=== PATIENT | male | born 1960 | race Caucasian/White ===

== ENCOUNTER → 2021-06-19 11:22 | Outpatient (BNVA) | payer OTHER, SELFPAY | PROVIDERS: PCP Family Medicine; Visit Provider Urology | DX: N40.1 Benign prostatic hyperplasia with lower urinary tract symptoms (principal); N13.8 Other obstructive and reflux uropathy; C61 Malignant neoplasm of prostate | CPT/HCPCS: 99212 ==

== ENCOUNTER → 2022-01-26 12:44 | Outpatient (BNVA) | payer OTHER, SELFPAY | PROVIDERS: PCP Family Medicine; Visit Provider Urology | DX: N40.1 Benign prostatic hyperplasia with lower urinary tract symptoms (principal); N13.8 Other obstructive and reflux uropathy; C61 Malignant neoplasm of prostate; N52.9 Male erectile dysfunction, unspecified | CPT/HCPCS: 99212 ==

== ENCOUNTER 2022-10-21 11:18 | Outpatient (REF) | payer OTHER, SELFPAY ==
[2022-10-21 13:03] LABS: PSA,Total (Free>4and<10) 5.04 ng/mL (0.00-4.00)
[2022-10-25 12:49] LABS: Free Prostate Spec Ag 1.4 ng/mL; Percent Free Prostate Spec Ag 27 % (calc) (>25); Prostate Specific Ag Total 5.1 ng/mL (< OR = 4.0)
== END 2022-10-21 11:19 | disposition home or self-care (01) ==
LOC: HO.LAB 11:18
PROVIDERS: PCP Family Medicine; Visit Provider Urology
DX: N40.1 Benign prostatic hyperplasia with lower urinary tract symptoms (principal); N13.8 Other obstructive and reflux uropathy; Z12.5 Encounter for screening for malignant neoplasm of prostate
CPT/HCPCS: 36415; 84153; 84154

== ENCOUNTER → 2022-10-29 10:59 | Outpatient (BNVA) | payer OTHER, SELFPAY | PROVIDERS: PCP Family Medicine; Visit Provider Urology | DX: N32.81 Overactive bladder (principal); N52.9 Male erectile dysfunction, unspecified | CPT/HCPCS: 51798; 99212 ==

== ENCOUNTER 2023-05-17 11:28 | Outpatient (REF) | payer OTHER, SELFPAY | END 2023-05-17 11:29 | disposition home or self-care (01) | LOC: HO.LAB 11:28 | PROVIDERS: PCP Family Medicine; Visit Provider Urology | DX: Z12.5 Encounter for screening for malignant neoplasm of prostate (principal); C61 Malignant neoplasm of prostate | CPT/HCPCS: 36415; 84153 ==

== ENCOUNTER 2023-05-24 10:56 | Outpatient (AMB) | payer OTHER, SELFPAY ==
--- NOTE | 2023-05-24 10:59 | A.OFFVIS_ITS ---
Intake Intake Visit Reasons: PSA Follow Up(set) Intake Note: Patient is prsent for PSA/PVR Follow Up PSA Results: 3.19 ng/mL Urology Med: Oxybutynin, Finasteride, Sildenafil Antibiotic Allergy: Penicillin V Blood Thinner: None PVR: 104 ml Continuous Pickling Line Pickler Required: Yes Continuous Pickling Line Pickler Language: Fashion Director Name: TRACY Mancera/THAIS MATUTE Information Interpreted: non-clinical & clinical Accompanied by: Self / Same As Patient Allergies penicillin V Allergy (Intermediate, Verified 05/24/23 11:06) rash Medication List - Last Reconciled 05/24/23 by Pasquale Merrill MD bupropion HCl 150 mg PO DAILY bupropion HCl 300 mg PO DAILY cabergoline 0.25 mg PO 2XW cholecalciferol (vitamin D3) 25 mcg PO DAILY clonazepam 0.5 mg PO BID disulfiram mg PO emtricitabine-tenofovir alafen 200-25 mg (Descovy) 1 tab PO DAILY finasteride 5 mg PO DAILY 90 days fluoxetine 10 mg PO DAILY fluticasone propionate 50 mcg/actuation 2 sprays intranasal DAILY gabapentin 400 mg PO DAILY ketoconazole 2% 1 appl topical levofloxacin 500 mg PO daily 3 days olopatadine 0.1% 0 drps ophthalmic (eye) oxybutynin chloride ER 5 mg PO DAILY 30 days quetiapine (Seroquel) 300 mg PO BID sildenafil 100 mg PO ONCE PRN 30 days sildenafil (pulm.hypertension) 20 mg PO DAILY PRN 30 days tadalafil 5 mg PO DAILY 90 days zolpidem 10 mg PO BEDTIME PRN HPI HPI Comments History of Present Illness Details ?Mr Ashley is a very pleasant Lebanese speaking male. He is a patient of Dr. Meyers. He is seen seen in the office today for the following urologic conditions. ?- prostate cancer ?- delayed ejaculation. Lebanese translation provided in office by qualified medical i d sales Telemedicine Evaluation 15 min Consultation Doximity Yael Video PSA fell to 3.2 May continue with surveillance Continue with finasteride Prostate cancer: 2016 Grade Group 1 ? Prostate cancer was diagnosed?[address] - [address] Moss.? Diagnosis was reached by?needle biopsy, for elevated PSA.? The Jeison grade is?3+3 = 6 reported by patient.? TNM Classification of Malignant Tumours (TNM)?T1c.? The D'Sunny (NCCN) risk category is?Low Risk (PSA< 10, Gl < 7, T1c).? Initial therapy included?Primary treatment, 01/21 Deferred Therapy (active surveillance) ?05/24 Additional treatment, 5AR.? Recent labs included?a PSA (prostate-specific antigen) 06/23 5.2, 12/22 5.8 (not on anything), 02/21 4.4, 07/24 4.3, 01/23 4.5, 07/25 4.7 5AR, 01/24 PSA 8.4, 08/27 PSA 9.2, 01/27 3.0 on 5AR, 10/28 5.0 27% free, 05/30 3.2 5AR ? Recent imaging included?05/24 - MRI 1.2cm PIRADS 3 on left posterior lateral.? Associated conditions ? erectile dysfunction ?Yes Delayed ejaculation ? Therapeutic plan: Continue surveillance Q 6 month [facility] Surgical History Hx of cholecystectomy Social History Alcohol intake: former Patient Tobacco Use Status: Former Tobacco user Cigarettes Per Day: 40 Review of Systems Const All systems reviewed & are unremarkable except as noted in HPI and below Reports no additional complaints Resp Reports no additional complaints GI Reports no additional complaints Reports as per HPI Musc Reports no additional complaints Physical Exam Telemedicine evaluation Appropriate responses Regular breathing rate and rhythm HEENT Head: Yes normal to inspection Ears: hearing grossly normal bilaterally Eyes General: appearance normal, both eyes and all related structures Neck Neck: Yes normal visual inspection Chest Chest palpation & inspection: normal inspection of the chest Resp Effort & Inspection: normal respiratory effort and able to speak in complete sentences Office Procedures Post Void Residual Post Residual Void Post Void Residual (PVR): 104 [id number] Void Residual by ultrasound Assessment & Plan Assessment & Plan (1) BPH w urinary obs/LUTS: Code(s): N40.1 - Benign prostatic hyperplasia with lower urinary tract symptoms; N13.8 - Other obstructive and reflux uropathy (2) Prostate cancer: Code(s): C61 - Malignant neoplasm of prostate (3) Erectile dysfunction: Code(s): N52.9 - Male erectile dysfunction, unspecified Qualifiers: Erectile dysfunction type: vasculogenic Vasculogenic erectile dysfunction type: due to arterial insufficiency Qualified Code(s): N52.01 - Erectile dysfunction due to arterial insufficiency Plan 6 month PSA check Orders: Orders AMB Post Void Residual by ultrasound Today N39.8 - Other specified disorders of urinary system PSA,Total (Free>4and<10) 6 Months C61 - Malignant neoplasm of prostate Prostate Specific Antigen 05/17/23 C61 - Malignant neoplasm of prostate AMB Urinalysis Automated Today Z13.9 - Encounter for screening, unspecified Medications: Changed From finasteride 5 mg PO DAILY 30 days 30 tabs 2RF C61 - Malignant neoplasm of prostate, N40.1 - Benign prostatic hyperplasia with lower urinary tract symptoms To finasteride 5 mg PO DAILY 90 days 90 tabs 1RF C61 - Malignant neoplasm of prostate, N40.1 - Benign prostatic hyperplasia with lower urinary tract symptoms From tadalafil 5 mg PO DAILY 90 days 90 tabs 0RF sexual activity N52.9 - Male erectile dysfunction, unspecified To tadalafil 10 mg PO DAILY 90 tabs 1RF sexual activity 90 days N52.9 - Male erectile dysfunction, unspecified Patient Instructions: Imaging studies, laboratory and physical exam results were discussed and revi ewed in detail. No major barriers to patient understanding were identified. An opportunity to ask questions regarding the treatment plan was provided. All questions were answered. The patient expressed understanding and agreement with the above treatment plan. The patient is aware they should contact our office by phone for worsening of their current condition or the appearance of new urologic symptoms. Compliance is encouraged with any medications and followup testing that is ordered. It is a privilege to participate in the urologic care of your patient. If you have any questions or concerns regarding treatment for the above conditions, or other urologic issues, please do not hesitate to contact me. The office telephone contact is [phone]. This note is constructed using voice recognition software. While every effort has been made to ensure accuracy publications editor errors may have been included. Yours sincerely, Dr Pasquale Merrill MD, [facility] - Urology Providers of Expert, Compassionate Care for the Genitourinary System Telehealth Telehealth Location of provider rendering services: practice address Location of patient: address on file Patient Identification confirmed using: Name, : Yes Telehealth method: video Patient verbally consented to treatment: Yes Patient verbally consented to billing insurance company: Yes Patient informed of any privacy concerns related to visit: Yes Coding Level of Care Code Tele Est Pt Level 4 (39649) Diagnoses BPH w urinary obs/LUTS N40.1; N13.8 Prostate cancer C61 Erectile dysfunction due to arterial insufficiency N52.01 Erectile dysfunction type: vasculogenic Vasculogenic erectile dysfunction type: due to arterial insufficiency CPT Codes Post Residual Void - PVR CPT Code: 25646-Bwti Void Residual by ultrasound ([id number])
--- OUTSIDE RECORDS SUMMARY | 2023-05-24 10:59 | XMS_ITS | Continuity of Care Document ---
Author Name Unknown Organization [facility] Address [address] [place] [address]- Care Team Providers Care Lead Principal Technical Architect Name Role Phone Zhang Benitez MD Primary Care Physician [place] [facility] [place] - 01/29/23 [facility]/[place] [address]- [place] Allergies, Adverse Reactions, Alerts Substance Reaction Severity Status penicillin Active Immunizations Given and Recorded Vaccine Date Status Refusal Reason influenza virus vaccine, inactivated 07/13/22 Give n influenza virus vaccine, inactivated 04/23/21 Anival rded influenza virus vaccine, inactivated 05/17/18 Give n influenza virus vaccine, inactivated 06/30/16 Give n [id number] bivalent booster vax 07/09/22 Recorded SARS-CoV-2 (COVID-19) mRNA-1273 vaccine 1 12/24/21 Recorded SARS-CoV-2 (COVID-19) mRNA-1273 vaccine 06/16/21 R ecorded SARS-CoV-2 (COVID-19) mRNA-1273 vaccine 11/19/20 R ecorded SARS-CoV-2 (COVID-19) mRNA-1273 vaccine 10/22/20 R ecorded zoster vaccine, inactivated 05/28/21 Given zoster vaccine, inactivated 05/22/20 Recorded tetanus-diphtheria toxoids (Td) 05/28/21 Given pneumococcal 13-valent vaccine 05/28/21 Given Influenza Virus Vaccine (oldterm) 05/22/20 Recorde d Influenza Virus Vaccine (oldterm) 05/17/19 Recorde d tetanus/diphtheria/pertussis, acel(Tdap) 2 09/03/09 Given hepatitis B adult vaccine 3 09/03/09 Given hepatitis B adult vaccine 4 06/05/08 Given hepatitis B adult vaccine 5 03/13/07 Given hepatitis B adult vaccine 6 10/10/06 Given hepatitis B adult vaccine 7 09/14/06 Given 1Result Comment: SKIP [facility] CHAR[facility] MEDRANO 2Admin Note: ADACEL VIS 06/25/08 GIVEN 3Admin Note: VIS 02/22/07 GIVEN 4Admin Note: VIS 02/22/07 given 5Admin Note: Hep B # 3 VIS 02/15/01 6Admin Note: HEP B # 2 VIS 02/15/2001 7Admin Note: VIS 02/05 HEP B #1 Medications ammonium lactate 12% topical cream 1 applicator, Topically, 2 times a day, # 280 Gm, 11 Refills, Maintenance, 05/28/21 12:56:00 EDT, [facility]/pharmacy #[id number], 1 applicator Topically 2 times a day, 162.6, cm, 05/28/21 11:04:00 EDT, Height, 81.1, kg, 11/24/20 11:26:00 EDT, Dry Weight Start Date: 05/28/21 Status: Ordered buPROPion 150 mg/12 hours (SR) oral tablet, extended release 1 tablet = 150 mg, By Mouth, 2 times a day, given by psych, Radha Cueva, # 60 tablet, 0 Refills,Maintenance, 01/31/17 9:04:21 EDT, ER Tablet Start Date: 01/31/17 Status: Ordered cabergoline 0.5 mg oral tablet 0.5 tablet = 0.25 mg, By Mouth, Every Tuesday and , # 4.5 tablet, 1 Refills, Maintenance, 11/04/21 1:02:00 EDT, [facility]/pharmacy #[id number], 162.6, cm, 10/29/21 10:19:00 EDT, Height, 81.1, kg, 11/24/2110:26:00 EDT, Dry Weight Start Date: 11/04/21 Stop Date: 01/03/22 Status: Ordered celecoxib 200 mg oral capsule 1 capsule, By Mouth, 2 times a day, PRN NEEDED FOR PAIN WITH FOOD DISCONTINUE MELOXICAM, # 60 capsule, 0 Refills, Maintenance, 12/12/22 21:40:00 EDT, [id number], 162.6, cm, 11/19/22 11:04:00 EDT, Height Start Date: 12/12/22 Status: Ordered cetirizine 10 mg oral tablet 1 tablet = 10 mg, By Mouth, Daily, In place of Loratadine label in belgian, # 30 tablet, 1 Refills,Maintenance, 11/10/22 11:58:00 EDT, Tablet, [facility]/pharmacy #[id number], Partial fill upon patient request if the prescription is for a schedule II opioid lorene... Start Date: 11/10/22 Status: Ordered clonazePAM 0.5 mg oral tablet 1 tablet = 0.5 mg, By Mouth, 2 times a day, given by psych, Radha Cueva, 0 Refills, Maintenance,11/27/18 9:50:48 EDT, Tablet Start Date: 11/27/18 Status: Ordered Descovy 200 mg-25 mg oral tablet 1 tablet, By Mouth, Daily, # 30 tablet, 6 Refills, Maintenance, 09/28/22 20:35:00 EST, Tablet, [facility], 1 tablet By Mouth Daily, 162.6, cm, 09/01/22 10:49:00 EST, Height, 81.1, kg, 11/24/20 11:26:00 EDT, Dry Weight Start Date: 09/28/22 Status: Ordered disulfiram 250 mg oral tablet See Instructions, 2 tablets By Mouth Daily for the first 2 weeks then 1 tablet daily Abstain from any alcohol for at least 12 hours before using Do not drink alcohol Avoid metronidazole, # 120 tablet, 2 Refills, Maintenance, 10/28/22... Start Date: 10/28/22 Status: Ordered dolutegravir 50 mg oral tablet 1 tablet = 50 mg, By Mouth, Daily, for post-exposure prophylaxis take with emtricitabine-tenofovir,# 28 tablet, 0 Refills, Maintenance, 04/29/22 15:30:00 EDT, Tablet, [facility]/pharmacy #[id number], Partial fill upon patient request if the prescription is for... Start Date: 04/29/22 Stop Date: 05/27/22 Status: Ordered emtricitabine-tenofovir disoproxil 200 mg-300 mg oral tablet 1 tablet, By Mouth, Daily, for post-exposure prophylaxis take with dolutegravir, # 28 tablet, 0 Refills, Maintenance, 04/29/22 15:30:00 EDT, [facility]/pharmacy #[id number], Partial fill upon patient request if the prescription is for a schedule II opioid drug.,... Start Date: 04/29/22 Stop Date: 05/27/22 Status: Ordered FLUoxetine 10 mg oral capsule 10 mg, 1, capsule, By Mouth, Daily, given by psych, Radha Cueva, # 30 capsule, Refills 0, Maintenance, 11/27/18 9:51:03 EDT Start Date: 11/27/18 Status: Ordered fluticasone 50 mcg/inh nasal spray See Instructions, SPRAY 2 SPRAYS INTO EACH NOSTRIL TODOS [place], # 16 mL, 11 Refills, Maintenance, 01/12/23 17:33:00 EDT, [facility]/pharmacy #[id number], 30, SPRAY 2 SPRAYS INTO EACH NOSTRIL TODOS [place], 162.6, cm, 01/12/23 14:53:00 EDT, Height Start Date: 01/12/23 Status: Ordered gabapentin 400 mg oral capsule See Instructions, TOME KARL CAPSULA POR VIA ORAL VICTORIA VECES AL DACIA, # 90 capsule, Refills 11, Tot. Refills 11, 11/06/19 14:40:00 EDT, Instructions Replace Required Details, Route to Pharmacy Electronically, [facility]/pharmacy #[id number], 162.56, cm, 10/18/19 10:4... Start Date: 11/06/19 Status: Ordered lansoprazole 15 mg oral enteric coated capsule See Instructions, TOME 1 CAPSULA POR VIA ORAL TODOS [place] TAKE 30 MINS BEFORE BREAKFAST, # 30 capsule, 2 Refills, Maintenance, 11/23/22 7:43:00 EDT, [id number], 162.6, cm, 11/19/22 11:04:00 EDT, Height, 81.1, kg, 11/24/20 11:26:00 EDT, Dry Weight Start Date: 11/23/22 Status: Ordered loperamide 2 mg oral capsule See Instructions, (Use 2 capsule the first time then 1 capsule after each loose stool.not to exceed8 capsules, or 16 mg, in 24 hours), # 60 capsule, Refills 1, Tot. Refills 1, Maintenance, 03/19/22 16:06:00 EDT, Instructions Replace Required Details,... Start Date: 03/19/22 Status: Ordered loratadine 10 mg oral tablet See Instructions, TOME KARL TABLETA POR VIA ORAL TODOS [place] COLON CUANDO SEA NECESARIO ALLERGY SYMPTOMS, # 30 tablet, Refills 5, Maintenance, 11/13/22 16:18:00 EDT, Instructions Replace Required Details, Route to Pharmacy Electronically, [id number],... Start Date: 11/13/22 Status: Ordered metroNIDAZOLE 0.75% topical gel 1 application, Topically, 2 times a day, Apply a thin film to affected area after washing., # 45 Gm, 11 Refills, Maintenance, Rosacea, 01/12/23 17:32:00 EDT, [facility]/pharmacy #[id number], 1 application Topically 2 times a day,Instr:Apply a thin film to affected... Start Date: 01/12/23 Status: Ordered mometasone 0.1% topical cream 1 application, Topically, Daily, apply a thin film in affected area- chest, abdomen, back, # 90 Gm,1 Refills, Maintenance, 10/15/20 22:55:00 EST, Cream, [facility]/pharmacy #[id number], 1 application Topically Daily,Instr:apply a thin film in affected area- del... Start Date: 10/15/20 Status: Ordered montelukast 10 mg oral tablet 10 mg, 1, tablet, By Mouth, Daily at bedtime, # 30 tablet, Refills 11, Tot. Refills 11, Maintenance, 10/30/21 14:05:00 EDT, Route to Pharmacy Electronically, [facility]/pharmacy #[id number], Partial fill upon patient request if the prescription is for a schedule I... Start Date: 10/30/21 Status: Ordered nitroglycerin 0.4 mg sublingual tablet 1 tablet = 0.4 mg, Sublingual, Every 5 minutes, PRN Chest Pain, (not to exceed 3 doses/15 min--if pain persists, seek medical attention), # 25 tablet, 3 Refills, Maintenance, 11/09/21 16:07:00 EDT, Tablet, [facility]/pharmacy #1026, Partial fill upon patient... Start Date: 11/09/21 Status: Ordered olopatadine 0.1% ophthalmic solution 1 drops, Eyes, Both, 2 times a day, PRN eye allergies, # 5 mL, 11 Refills, Maintenance, 10/28/22 10:43:00 EDT, Ophth Solution, [facility]/pharmacy #[id number], ., 1 drops Eyes, Both 2 times a day,PRN:eye allergies, 162.6, cm, 10/28/22 9:39:00 EDT, Height, 81.1, kg... Start Date: 10/28/22 Status: Ordered QUEtiapine 300 mg oral tablet 1 tablet = 300 mg, By Mouth, Daily at bedtime, psychiatric, Radha Cueva, # 30 tablet, 0 Refills, Maintenance, 01/04/20 16:06:00 EDT, Tablet Start Date: 01/04/20 Status: Ordered right custom AFO right custom AFO, See Instructions, # 1 each, Refills 0, Tot. Refills 0, Maintenance, right foot drop, 10/28/22 10:49:00 EDT, Compound Start Date: 10/28/22 Status: Ordered Robitussin Cough + Chest Congestion DM Maximum Strength 20 mg-400 mg/20 mL oral liquid 20 mL, By Mouth, Every 4 hours, PRN Cough, label in belgian, # 180 mL, 1 Refills, Maintenance, 12/01/22 17:23:00 EDT, [facility], Partial fill upon patient request if the prescription is for a schedule II opioid drug., 20 mL By Nickie... Start Date: 12/01/22 Status: Ordered sildenafil 100 mg oral tablet 1 tablet = 100 mg, By Mouth, Daily, 1 hour before sexual activity Do not use with NTG or if has chest pain, # 24 tablet, 0 Refills, Maintenance, 09/28/22 14:30:00 EST, Tablet, [facility], 162.6, cm, 09/01/22 10:49:00 EST, He[place]... Start Date: 09/28/22 Status: Ordered simethicone 125 mg oral tablet, chewable 1 tablet = 125 mg, Chew, 4 times a day, Take before meal ; belgian, # 120 tablet, 11 Refills, Maintenance, 06/01/21 13:40:00 EDT, [facility]/pharmacy #[id number], 162.6, cm, 05/28/21 11:04:00 EDT, Height, 81.1, kg, 11/24/20 11:26:00 EDT, Dry Weight Start Date: 06/01/21 Status: Ordered tamsulosin 0.4 mg oral capsule 0.4 mg, 1, capsule, By Mouth, Daily, # 30 capsule, Refills 5, Tot. Refills 5, Maintenance, 219:31:00 EDT, Route to Pharmacy Electronically, [facility]/pharmacy #[id number], 162.6, cm, 11/24/20 11:22:00 EDT, Height, 81.1, kg, 11/24/20 11:26:00 EDT, Dry Weight Start Date: 12/05/20 Status: Ordered Vitamin D3 1000 intl units oral tablet 1 tablet = 25 mcg, By Mouth, Daily, for 30 days, # 30 tablet, 11 Refills, Physician Stop 07/07/23 16:35:00 EST, 07/12/22 16:35:00 EST, [facility]/pharmacy #[id number], 162.6, cm, 05/06/22 10:10:00 EDT, Height, 81.1, kg, 11/24/20 11:26:00 EDT, Dry Weight Start Date: 07/12/22 Stop Date: 07/07/23 Status: Ordered zolpidem 10 mg oral tablet 1 tablet = 10 mg, By Mouth, Daily at bedtime, given by psych, Lorie Castano SHOE CASER, 0 Refills, Maintenance, 06/19/15 14:48:48 Start Date: 06/19/15 Status: Ordered Problem List Condition Confirmation Course Effective Dates Status H ealth Status Informant Allergic conjunctivitis Confirmed Active Allergic rhinitis Confirmed Active Chronic diarrhea Confirmed Active Chronic folliculitis Confirmed Active Chronic neck pain Confirmed Active Depression Confirmed Active Diverticulitis 1 Confirmed 06/29/14 Active On pre-exposure prophylaxis for HIV Confirmed Active Chlamydia contact Confirmed Active Foot drop, right Confirmed Active Gastritis 2, 3, 4, 5 Confirmed Active Gastro-esophageal reflux Confirmed Active Gynecomastia 6 Confirmed 09/09/06 Active Hepatitis A immune 7 Confirmed 07/23/05 Active Hx of syphilis Confirmed Active Insomnia Confirmed Active Chronic pain of left knee Confirmed Active 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, latent Confirmed 02/05/19 Active Prostate cancer Confirmed Active Obese class I Confirmed Active Obstructive sleep apnea syndrome 9, 10 Confirmed 10/11/11 Active Pain of left hip joint Confirmed Active [facility] Care Management Program Edge Blacker Fransisco Chacon [phone] Confirmed Active 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 11 Confirmed Active Rosacea, acne Confirmed Active Chronic pain of both shoulders Confirmed Active Positive serology for syphilis Confirmed Active Tear of meniscus of left knee 12 Confirmed 12/2015 Active Tension headache Confirmed 11/15/08 Active 1diagnosed at [facility] 2correction date food esophagus impactation is 06/30/12 3EGD 06/30/14: food impactation Neg breath test for H Pylori 5By Esteban Colby MD 11/25/11 EGD Impressions: Normal mucosa in the esophagus.Erythema and congestion in the antrum compatible with gastritis (biopsy- pos H Pylori). Normal mucosa in the duodenum. 6mild right by mammogram on 09/09/06 7by serology 8by GI assessment Sleep study Obstructive sleep apnea, mild; Hypoxia 10Obstructive sleep apnea, mild, chronic. Periodic limb movements of sleep 11right leg with foot drop 12From fall on December 2015. Dx by MRI 01/27/16: Complex degenerative type tear involving the body and posterior horn of the medial meniscus. Possible 4 mm marrow signal loose body within the inferior recess of the medial gutter. Chondromalacia and degenerative changes within the medial and patellofemoral compartments. Susceptibility artifact within the infrapatellar soft tissues. Social History Social History Type Response Smoking Status Former smoker, quit more than 30 days ago entered on: 03/29/22 Sex Patient Care team information Care Team Personnel Name: Daron Allen RN Position: S RN Member Role: Primary Care Nurse Name: Zhang Benitez MD Position: [facility] Physician - Primary Care Member Role: PCP Address: Address: [address] [place] [id number]- Care Team Related Persons Name: DOMINGO ELIAS Name: BRANDY ROBERSON Address: home [address] [place] [address] Name: PT STATES, NO ONE
--- OUTSIDE RECORDS SUMMARY | 2023-05-24 10:59 | XMS_ITS | Continuity of Care Document ---
Author Name Unknown Organization [facility] Address [address] [place] [address]- Care Team Providers Care Manager Audio Name Role Phone Zhang Benitez MD Primary Care Physician Encounter [facility] Date(s): 01/14/23 - 04/09/23 [facility] [place] [address]- Attending Physician: Zhang Benitez MD Admitting Physician: Zhang Benitez MD Allergies, Adverse Reactions, Alerts Substance Reaction Severity Status penicillin Active Immunizations Given and Recorded Vaccine Date Status Refusal Reason influenza virus vaccine, inactivated 07/13/22 Give n influenza virus vaccine, inactivated 04/23/21 Anival rded influenza virus vaccine, inactivated 05/17/18 Give n influenza virus vaccine, inactivated 06/30/16 Give n [id number] bivalent booster vax 07/09/22 Recorded SARS-CoV-2 (COVID-19) [...] adult vaccine 7 09/14/06 Given 1Result Comment: [facility] 2Admin Note: ADACEL VIS 06/25/08 GIVEN 3Admin Note: VIS 02/22/07 GIVEN 4Admin Note: VIS 02/22/07 given 5Admin Note: Hep B # 3 VIS 02/15/01 6Admin Note: HEP B # 2 VIS 02/15/2001 7Admin Note: VIS 02/05 HEP B #1 Medications buPROPion 150 mg/12 hours (SR) oral tablet, extended release 2 tablet = 300 mg, By Mouth, Daily, given by Neil avendano, # 60 tablet, 0 Refills, Maintenance, 01/31/17 9:04:21 EDT, ER Tablet Start Date: 01/31/17 Status: Ordered busPIRone 10 mg oral tablet 10 mg, 1, tablet, By Mouth, 3 times a day, As needed Patient is still taking from prior psychiatrist prescription, Radha Cueva, # 90 tablet, Refills 0, Maintenance, 03/31/23 14:07:00 EDT Start Date: 03/31/23 Status: Ordered clonazePAM 0.5 mg oral tablet 1-2 tablet, By Mouth, 2 times a day, As needed Given by Neil avendano, 0 Refills, Maintenance, 11/27/18 9:50:48 EDT, Tablet Start Date: 11/27/18 Status: Ordered Descovy 200 mg-25 mg oral tablet 1 tablet, By Mouth, Daily, # 30 tablet, 6 Refills, Maintenance, 09/28/22 20:35:00 EST, Tablet, [facility], 1 tablet By Mouth Daily, 162.6, cm, 09/01/22 10:49:00 EST, Height, 81.1, kg, 11/24/20 11:26:00 EDT, Dry Weight Start Date: 09/28/22 Status: Ordered dexamethasone/neomycin/polymyxin B ophthalmic 1 mg-3.5 mg-46409 u/gm ointment 1 application, Eyes, Both, 3 times a day, for 30 days, as needed for itchiness, # 3.5 Gm, 0 Refills, Acute 04/30/23 12:53:00 EDT, 03/31/23 12:53:00 EDT, Ophth Ointment, [facility]/pharmacy #[id number], Partial fill upon patient request if the prescription is for a... Start Date: 03/31/23 Stop Date: 04/30/23 Status: Ordered diclofenac 1% topical gel = 2 Gm, Topically, 4 times a day, # 100 Gm, 5 Refills, Maintenance, 04/07/23 15:40:00 EDT, Gel, [facility]/pharmacy #[id number], ., 162.6, cm, 04/07/23 9:53:00 EDT, Height Start Date: 04/07/23 Stop Date: 06/30/23 Status: Ordered finasteride 5 mg oral tablet 1 tablet = 5 mg, By Mouth, Daily, Given by urologist, Dr. Pasquale Merrill, # 30 tablet, 0 Refills, Maintenance, 03/31/23 14:04:00 EDT, Tablet Start Date: 03/31/23 Status: Ordered FLUoxetine 10 mg oral capsule 10 mg, 1, capsule, By Mouth, Daily, given by psych, Neil Balderas, # 30 capsule, Refills 0, Maintenance, 11/27/18 9:51:03 EDT Start Date: 11/27/18 Status: Ordered fluticasone 50 mcg/inh nasal spray See Instructions, SPRAY 2 SPRAYS INTO EACH NOSTRIL TODOS ZEYAD COLON, # 16 mL, 11 Refills, Maintenance, 01/12/23 17:33:00 EDT, [facility]/pharmacy #[id number], 30, SPRAY 2 SPRAYS INTO EACH NOSTRIL TODOS [place], 162.6, cm, 01/12/23 14:53:00 EDT, Height Start Date: 01/12/23 Status: Ordered gabapentin 300 mg oral capsule 300 mg, 1, capsule, By Mouth, Daily, PRN, # 30 capsule, Refills 5, Tot. Refills 5, Maintenance, Pain , Moderate, 04/07/23 17:49:00 EDT, Route to Pharmacy Electronically, [facility]/pharmacy #[id number], 162.6, cm, 04/07/23 9:53:00 EDT, Height Start Date: 04/07/23 Status: Ordered hydrocortisone 1% topical cream 1 application, Topically, 2 times a day, EYE LIDS AVOID GETTING IN EYES LABEL IN VINCENTIAN, # 30 Gm, 0 Refills, Maintenance, 03/18/23 13:43:00 EDT, Cream, [facility]/pharmacy #[id number], Partial fill upon patient request if the prescription is for a schedule II o... Start Date: 03/18/23 Status: Ordered lansoprazole 15 mg oral enteric coated capsule See Instructions, TOME 1 CAPSULA POR VIA ORAL TODOS [place] TAKE 30 MINS BEFORE BREAKFAST, # 90 capsule, 0 Refills, Maintenance, 02/21/23 15:11:00 EDT, [id number], 162.6, cm, 01/12/23 14:53:00 EDT, Height Start Date: 02/21/23 Status: Ordered loratadine 10 mg oral tablet See Instructions, TOME KARL TABLETA POR VIA ORAL TODOS [place] CUANDO SEA NECESARIO ALLERGY SYMPTOMS, # 30 tablet, Refills 5, Maintenance, 11/13/22 16:18:00 EDT, Instructions Replace Required Details, Route to Pharmacy Electronically, [id number],... Start Date: 11/13/22 Status: Ordered metroNIDAZOLE 0.75% topical gel 1 application, Topically, 2 times a day, Apply a thin film to affected area after washing., # 45 Gm, 11 Refills, Maintenance, Rosacea, 01/12/23 17:32:00 EDT, [facility]/pharmacy #[id number], 1 application Topically 2 times a day,Instr:Apply a thin film to affected... Start Date: 01/12/23 Status: Ordered naphazoline 0.012% ophthalmic solution 1-2 drops, Eyes, Both, 4 times a day, PRN Red eyes, Getting [id number]???name: Clear eyes, # 15 mL, 0 Refills, Maintenance, 03/31/23 13:56:00 EDT, . Start Date: 03/31/23 Status: Ordered nortriptyline 10 mg oral capsule 10 mg, 1, capsule, By Mouth, Daily at bedtime, # 30 capsule, Refills 2, Tot. Refills 2, Maintenance, 04/07/23 11:01:00 EDT, Route to Pharmacy Electronically, [facility]/pharmacy #[id number], Partial fill upon patient request if the prescription is for a schedule I... Start Date: 04/07/23 Status: Ordered oxybutynin 5 mg/24 hours oral tablet, extended release 1 tablet = 5 mg, By Mouth, Daily, Given by urologist, Dr. Pasquale Merrill, # 30 tablet, 0 Refills, Maintenance, 03/31/23 14:04:00 EDT, ER Tablet Start Date: 03/31/23 Status: Ordered QUEtiapine 300 mg oral tablet 1 tablet = 300 mg, By Mouth, Daily at bedtime, Given by psychiatrist, Neil Balderas, # 30 tablet,0 Refills, Maintenance, 01/04/20 16:06:00 EDT, Tablet Start [...] Every 4 hours, PRN Cough, label in australian, # 180 mL, 1 Refills, Maintenance, 12/01/22 17:23:00 EDT, [facility], Partial fill upon patient request if the prescription is for a schedule II opioid drug., 20 mL By Nickie... Start Date: 12/01/22 Status: Ordered tadalafil 5 mg oral tablet 1 tablet = 5 mg, By Mouth, Daily, 1 hour before sexual activity Given by urologist, Dr. Pasquale Merrill, # 5 tablet, 0 Refills, Maintenance, 03/31/23 14:04:00 EDT, Tablet Start Date: 03/31/23 Status: Ordered Vitamin D3 1000 intl units oral tablet 1 tablet = 25 mcg, By Mouth, Daily, for 30 days, # 30 tablet, 11 Refills, Physician Stop 07/07/23 16:35:00 EST, 07/12/22 16:35:00 EST, [facility]/pharmacy #[id number], 162.6, cm, 05/06/22 10:10:00 EDT, Height, 81.1, kg, 11/24/20 11:26:00 EDT, Dry Weight Start Date: 07/12/22 Stop Date: 07/07/23 Status: Ordered zolpidem 10 mg oral tablet 1 tablet = 10 mg, By Mouth, Daily at bedtime, given by psych, Neil Agbonifo, 0 Refills, Maintenance, 06/19/15 14:48:48 EST Start Date: 06/19/15 Status: Ordered Problem List Condition Confirmation Course Effective Dates Status H ealth Status Informant Allergic conjunctivitis Confirmed Active Allergic rhinitis Confirmed Active BPH (benign prostatic hyperplasia) Confirmed Active Chronic folliculitis Confirmed Active Chronic neck pain Confirmed Active Depression Confirmed Active Diverticulitis 1 Confirmed 06/29/14 Active On pre-exposure prophylaxis for HIV Confirmed Active Erectile dysfunction Confirmed Active Chlamydia contact Confirmed Active Foot [...] Confirmed 02/05/19 Active Prostate cancer Confirmed Active Chronic migraine without aura, not intractable Confirmed Active Obese class I Confirmed Active Obstructive sleep apnea syndrome 9, 10 Confirmed 10/11/11 Active Overactive bladder Confirmed Active Pain of left hip joint Confirmed Active [facility] Care Management Program Director Of Strategic Initiatives Fransisco Nettless [phone] Confirmed Active 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 11 Confirmed Active Rosacea, acne Confirmed Active Chronic pain of both shoulders Confirmed Active Tear of meniscus of left knee 12 Confirmed 12/2015 Active Tension headache Confirmed 11/15/08 Active 1diagnosed at [facility] 2correction date food esophagus impactation is 06/30/12 [...] Team Personnel Name: Daron Allen RN Position: [facility] RN Member Role: Primary Care Nurse Name: Zhang Benitez MD Position: [facility] Physician - Primary Care Member Role: PCP Address: Address: [address] [place] [address]- Care Team Related Persons Name: DOMINGO ELIAS Name: BRANDY ROBERSON Address: [place] [address] Name: PT STATES, NO ONE
--- OUTSIDE RECORDS SUMMARY | 2023-05-24 10:59 | XMS_ITS | Continuity of Care Document ---
Author Name Unknown Organization [facility] Address [address] [facility], [address], [address] [place] [id number]- Care Team Providers Care Supervisor Lace Tearing Name Role Phone Emmanuel CARRILLO, Zhang Primary Care Physician Encounter [facility] [place] Date(s): 12/30/22 - 01/29/23 [facility] [address], [address], [address] [place] [id number]- Attending Physician: Admyanely, Mychal Admitting Physician: Admtr, [id number] Referring Physician: Admtr, [id number] Allergies, Adverse Reactions, Alerts Substance Reaction Severity Status penicillin Active Immunizations Given and Recorded Vaccine Date Status Refusal Reason influenza virus vaccine, inactivated 07/13/22 Give n influenza virus vaccine, inactivated 04/23/21 Anival rded influenza virus vaccine, inactivated 05/17/18 Give n influenza virus vaccine, inactivated 06/30/16 Give n [id number] bivalent booster vax 07/09/22 Recorded SARS-CoV-2 (COVID-19) [...] adult vaccine 7 09/14/06 Given 1Result Comment: [facility] 2Admin Note: ADACEL VIS 06/25/08 GIVEN 3Admin Note: VIS 02/22/07 GIVEN 4Admin Note: VIS 02/22/07 given 5Admin Note: Hep B # 3 VIS 02/15/01 6Admin Note: HEP B # 2 VIS 02/15/2001 7Admin Note: VIS 02/05 HEP B #1 Medications ammonium lactate 12% topical cream 1 applicator, Topically, 2 times a day, # 280 Gm, 11 Refills, Maintenance, 05/28/21 12:56:00 EDT, [facility]/pharmacy #[id number], 1 applicator Topically 2 times a [...] tablet, 1 Refills, Maintenance, 11/04/21 1:02:00 EDT, [facility]/pharmacy #[id number], 162.6, cm, 10/29/21 10:19:00 EDT, Height, 81.1, kg, 11/24/2110:26:00 EDT, Dry Weight Start Date: 11/04/21 Stop Date: 01/03/22 Status: Ordered celecoxib 200 mg oral capsule 1 capsule, By Mouth, 2 times a day, PRN NEEDED FOR PAIN WITH FOOD DISCONTINUE MELOXICAM, # 60 capsule, 0 Refills, Maintenance, 12/12/22 21:40:00 EDT, [id number], 162.6, cm, 11/19/22 11:04:00 EDT, Height Start Date: 12/12/22 Status: Ordered cetirizine 10 mg oral tablet 1 tablet = 10 mg, By Mouth, Daily, In place of Loratadine label in pakistani, # 30 tablet, 1 Refills,Maintenance, 11/10/22 11:58:00 EDT, Tablet, [facility]/pharmacy #[id number], Partial fill upon patient request if [...] 0 Refills, Maintenance, 04/29/22 15:30:00 EDT, Tablet, [facility]/pharmacy #[id number], Partial fill upon patient request if the prescription is for... Start Date: 04/29/22 Stop Date: 05/27/22 Status: Ordered emtricitabine-tenofovir disoproxil 200 mg-300 mg oral tablet 1 tablet, By Mouth, Daily, for post-exposure prophylaxis take with dolutegravir, # 28 tablet, 0 Refills, Maintenance, 04/29/22 15:30:00 EDT, [facility]/pharmacy #[id number], Partial fill upon patient request if [...] Refills, Maintenance, 01/12/23 17:33:00 EDT, [facility]/pharmacy #[id number], 30, SPRAY 2 SPRAYS INTO EACH NOSTRIL TODOS [place], 162.6, cm, 01/12/23 14:53:00 EDT, Height Start Date: 01/12/23 Status: Ordered gabapentin 400 mg oral capsule See Instructions, TOME KARL CAPSULA POR VIA ORAL VICTORIA VECES AL DACIA, # 90 capsule, Refills 11, Tot. Refills 11, 11/06/19 14:40:00 EDT, Instructions Replace Required Details, Route to Pharmacy Electronically, [facility]/pharmacy #[id number], 162.56, cm, 10/18/19 10:4... Start Date: 11/06/19 Status: Ordered lansoprazole 15 mg oral enteric coated capsule See Instructions, TOME 1 CAPSULA POR VIA ORAL TODOS [place] TAKE 30 MINS BEFORE BREAKFAST, # 30 capsule, 2 Refills, Maintenance, 11/23/22 7:43:00 EDT, [id number], 162.6, cm, 11/19/22 11:04:00 EDT, Height, 81.1, [...] Replace Required Details, Route to Pharmacy Electronically, [id number],... Start Date: 11/13/22 Status: Ordered metroNIDAZOLE 0.75% topical gel 1 application, Topically, 2 times a day, Apply a thin film to affected area after washing., # 45 Gm, 11 Refills, Maintenance, Rosacea, 01/12/23 17:32:00 EDT, [facility]/pharmacy #[id number], 1 application Topically 2 times a day,Instr:Apply a thin film to affected... Start Date: 01/12/23 Status: Ordered mometasone 0.1% topical cream 1 application, Topically, Daily, apply a thin film in affected area- chest, abdomen, back, # 90 Gm,1 Refills, Maintenance, 10/15/20 22:55:00 EST, [facility], 1 application Topically Daily,Instr:apply a thin film in affected area- del... Start Date: 10/15/20 Status: Ordered montelukast 10 mg oral tablet 10 mg, 1, tablet, By Mouth, Daily at bedtime, # 30 tablet, Refills 11, Tot. Refills 11, Maintenance, 10/30/21 14:05:00 EDT, Route to Pharmacy Electronically, [facility]/pharmacy #[id number], Partial fill upon patient request if the prescription is for a schedule I... Start Date: 10/30/21 Status: Ordered nitroglycerin 0.4 mg sublingual tablet 1 tablet = 0.4 mg, Sublingual, Every 5 minutes, PRN Chest Pain, (not to exceed 3 doses/15 min--if pain persists, seek medical attention), # 25 tablet, 3 Refills, Maintenance, 11/09/21 16:07:00 EDT, Tablet, [facility]/pharmacy #[id number], Partial fill upon patient... Start Date: 11/09/21 Status: Ordered olopatadine 0.1% ophthalmic solution 1 drops, Eyes, Both, 2 times a day, PRN eye allergies, # 5 mL, 11 Refills, Maintenance, 10/28/22 10:43:00 EDT, Ophth Solution, [facility]/pharmacy #[id number], ., 1 drops Eyes, Both 2 [...] Every 4 hours, PRN Cough, label in pakistani, # 180 mL, 1 Refills, Maintenance, 12/01/22 17:23:00 EDT, [facility], Partial fill upon patient request if [...] times a day, Take before meal ; pakistani, # 120 tablet, 11 Refills, Maintenance, 06/01/21 13:40:00 EDT, [facility]/pharmacy #1026, 162.6, cm, 05/28/21 11:04:00 EDT, Height, 81.1, kg, 11/24/20 11:26:00 EDT, Dry Weight Start Date: 06/01/21 Status: Ordered tamsulosin 0.4 mg oral capsule 0.4 mg, 1, capsule, By Mouth, Daily, # 30 capsule, Refills 5, Tot. Refills 5, Maintenance, :31:00 EDT, Route to Pharmacy Electronically, [facility]/pharmacy #[id number], 162.6, cm, 11/24/20 11:22:00 EDT, Height, 81.1, kg, 11/24/20 11:26:00 EDT, Dry Weight Start Date: 12/05/20 Status: Ordered Vitamin D3 1000 intl units oral tablet 1 tablet = 25 mcg, By Mouth, Daily, for 30 days, # 30 tablet, 11 Refills, Physician Stop 07/07/23 16:35:00 EST, 07/12/22 16:35:00 EST, [facility]/pharmacy #[id number], 162.6, cm, 05/06/22 10:10:00 EDT, Height, 81.1, kg, 11/24/20 11:26:00 EDT, Dry Weight Start Date: 07/12/22 Stop Date: 07/07/23 Status: Ordered zolpidem 10 mg oral tablet 1 tablet = 10 mg, By Mouth, Daily at bedtime, given by psych, Lorie Castano NP, 0 Refills, Maintenance, 06/19/15 14:48:48 Start Date: [...] Pain of left hip joint Confirmed Active [facility] Care Management Program Industrial Engineering Technologist Fransisco Chacon [phone] Confirmed Active 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 11 Confirmed Active Rosacea, acne Confirmed Active Chronic pain of both shoulders Confirmed Active Positive serology for syphilis Confirmed Active Tear of meniscus of left knee 12 Confirmed 12/2015 Active Tension headache Confirmed 11/15/08 Active 1diagnosed at [facility] 2correction date food esophagus impactation is [...] Team Personnel Name: Daron Allen RN Position: [facility] RN Member Role: Primary Care Nurse Name: Zhang Benitez MD Position: [facility] Physician - Primary Care Member Role: PCP Address: Address: [address] [place] [address]- Care Team Related Persons Name: DOMINGO ELIAS Name: BRANDY ROBERSON Address: [address] [address] Name: PT STATES, NO ONE
--- OUTSIDE RECORDS SUMMARY | 2023-05-24 10:59 | XMS_ITS | Continuity of Care Document ---
Author Name Unknown Organization [facility] Address [address] [place] [address]- Care Team Providers Care Woodwind Instruments Inspector Name Role Phone Zhang Benitez MD Primary Care Physician [place] [facility] [place](s): 02/21/23 - 03/23/23 [facility]/[place] [address]- [place] Allergies, Adverse Reactions, Alerts Substance Reaction Severity Status penicillin Active Immunizations Given and Recorded Vaccine Date Status Refusal Reason influenza virus vaccine, inactivated 07/13/22 Give n influenza virus vaccine, inactivated 04/23/21 Anival rded influenza virus vaccine, inactivated 05/17/18 Give n influenza virus vaccine, inactivated 06/30/16 Give n [id number] bivalent booster vax 07/09/22 Recorded SARS-CoV-2 (COVID-19) [...] Gm, 11 Refills, Maintenance, 05/28/21 12:56:00 EDT, [facility]/pharmacy #[id number], 1 applicator Topically 2 times a [...] tablet, 1 Refills, Maintenance, 11/04/21 1:02:00 EDT, [facility]/pharmacy #[id number], 162.6, cm, 10/29/21 10:19:00 EDT, Height, 81.1, kg, 11/24/2110:26:00 EDT, Dry Weight Start Date: 11/04/21 Stop Date: 01/03/22 Status: Ordered celecoxib 200 mg oral capsule 1 capsule, By Mouth, 2 times a day, PRN NEEDED FOR PAIN WITH FOOD DISCONTINUE MELOXICAM, # 60 capsule, 0 Refills, Maintenance, 02/16/23 15:28:00 EDT, [id number], 162.6, cm, 01/12/23 14:53:00 EDT, Height Start Date: 02/16/23 Status: Ordered cetirizine 10 mg oral tablet 1 tablet = 10 mg, By Mouth, Daily, In place of Loratadine label in bahamian, # 30 tablet, 1 Refills,Maintenance, 11/10/22 11:58:00 EDT, Tablet, [facility]/pharmacy #[id number], Partial fill upon patient request if [...] 0 Refills, Maintenance, 04/29/22 15:30:00 EDT, Tablet, [facility]/pharmacy #[id number], Partial fill upon patient request if the prescription is for... Start Date: 04/29/22 Stop Date: 05/27/22 Status: Ordered emtricitabine-tenofovir disoproxil 200 mg-300 mg oral tablet 1 tablet, By Mouth, Daily, for post-exposure prophylaxis take with dolutegravir, # 28 tablet, 0 Refills, Maintenance, 04/29/22 15:30:00 EDT, [facility]/pharmacy #1026, Partial fill upon patient request if [...] mL, 11 Refills, Maintenance, 01/12/23 17:33:00 EDT, [facility]/pharmacy #1026, 30, SPRAY 2 SPRAYS INTO EACH NOSTRIL TODOS [place], 162.6, cm, 01/12/23 14:53:00 EDT, Height Start Date: 01/12/23 Status: Ordered gabapentin 400 mg oral capsule See Instructions, TOME KARL CAPSULA POR VIA ORAL VICTORIA VECES AL DACIA, # 90 capsule, Refills 11, Tot. Refills 11, 11/06/19 14:40:00 EDT, Instructions Replace Required Details, Route to Pharmacy Electronically, [facility]/pharmacy #1026, 162.56, cm, 10/18/19 10:4... Start Date: 11/06/19 Status: Ordered hydrocortisone 1% topical cream 1 application, Topically, 2 times a day, EYE LIDS AVOID GETTING IN EYES LABEL IN BULGAR[place], # 30 Gm, 0 Refills, Maintenance, 03/18/23 13:43:00 EDT, Cream, [facility], Partial fill upon patient request if the prescription is for a schedule II o... Start Date: 03/18/23 Status: Ordered lansoprazole 15 mg oral enteric coated capsule See Instructions, TOME 1 CAPSULA POR VIA ORAL TODOS [place] TAKE 30 MINS BEFORE BREAKFAST, # 90 capsule, 0 Refills, Maintenance, 02/21/23 15:11:00 EDT, [id number], 162.6, cm, 01/12/23 14:53:00 EDT, Height Start Date: 02/21/23 Status: Ordered loperamide 2 mg oral capsule [...] Replace Required Details, Route to Pharmacy Electronically, [id number],... Start Date: 11/13/22 Status: Ordered metroNIDAZOLE 0.75% topical gel 1 application, Topically, 2 times a day, Apply a thin film to affected area after washing., # 45 Gm, 11 Refills, Maintenance, Rosacea, 01/12/23 17:32:00 EDT, [facility]/pharmacy #1026, 1 application Topically 2 times a day,Instr:Apply a thin film to affected... Start Date: 01/12/23 Status: Ordered mometasone 0.1% topical cream 1 application, Topically, Daily, apply a thin film in affected area- chest, abdomen, back, # 90 Gm,1 Refills, Maintenance, 10/15/20 22:55:00 EST, Cream, [facility]/pharmacy #1026, 1 application Topically Daily,Instr:apply a thin film in affected area- del... Start Date: 10/15/20 Status: Ordered montelukast 10 mg oral tablet 10 mg, 1, tablet, By Mouth, Daily at bedtime, # 30 tablet, Refills 11, Tot. Refills 11, Maintenance, 10/30/21 14:05:00 EDT, Route to Pharmacy Electronically, [facility]/pharmacy #1026, Partial fill upon patient request if the prescription is for a schedule I... Start Date: 10/30/21 Status: Ordered nitroglycerin 0.4 mg sublingual tablet 1 tablet = 0.4 mg, Sublingual, Every 5 minutes, PRN Chest Pain, (not to exceed 3 doses/15 min--if pain persists, seek medical attention), # 25 tablet, 3 Refills, Maintenance, 11/09/21 16:07:00 EDT, Tablet, [facility]/pharmacy #1026, Partial fill upon patient... Start Date: 11/09/21 Status: Ordered olopatadine 0.1% ophthalmic solution 1 drops, Eyes, Both, 2 times a day, PRN eye allergies, # 5 mL, 11 Refills, Maintenance, 10/28/22 10:43:00 EDT, Ophth Solution, [facility]/pharmacy #1026, ., 1 drops Eyes, Both 2 [...] Every 4 hours, PRN Cough, label in bahamian, # 180 mL, 1 Refills, Maintenance, 12/01/22 17:23:00 EDT, [facility], Partial fill upon patient request if the [...] PHARMACY #80, 162.6, cm, 09/01/22 10:49:00 EST, [place] Start Date: 09/28/22 Status: Ordered simethicone 125 mg oral tablet, chewable 1 tablet = 125 mg, Chew, 4 times a day, Take before meal ; bahamian, # 120 tablet, 11 Refills, Maintenance, 06/01/21 13:40:00 EDT, [facility]/pharmacy #1026, 162.6, cm, 05/28/21 11:04:00 EDT, Height, 81.1, kg, 11/24/20 11:26:00 EDT, Dry Weight Start Date: 06/01/21 Status: Ordered tamsulosin 0.4 mg oral capsule 0.4 mg, 1, capsule, By Mouth, Daily, # 30 capsule, Refills 5, Tot. Refills 5, Maintenance, 219:31:00 EDT, Route to Pharmacy Electronically, [facility]/pharmacy #1026, 162.6, cm, 11/24/20 11:22:00 EDT, Height, 81.1, kg, 11/24/20 11:26:00 EDT, Dry Weight Start Date: 12/05/20 Status: Ordered Vitamin D3 1000 intl units oral tablet 1 tablet = 25 mcg, By Mouth, Daily, for 30 days, # 30 tablet, 11 Refills, Physician Stop 07/07/23 16:35:00 EST, 07/12/22 16:35:00 EST, [facility]/pharmacy #1026, 162.6, cm, 05/06/22 10:10:00 EDT, Height, [...] of left hip joint Confirmed Active [facility] Care Management Program Manager User Interface Fransisco Chacon [phone] Confirmed Active 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 11 Confirmed Active Rosacea, acne Confirmed Active Chronic pain of both shoulders Confirmed Active Positive serology for syphilis Confirmed Active Tear of meniscus of left knee 12 Confirmed 12/2015 Active Tension headache Confirmed 11/15/08 Active 1diagnosed at [facility] 2correction date food esophagus impactation is [...] Team Personnel Name: Daron Allen RN Position: [facility] RN Member Role: Primary Care Nurse Name: Emmanuel CARRILLO, Zhang Position: [facility] Physician - Primary Care Member Role: PCP Address: Address: [address] [place] [id number]- Care Team Related Persons Name: DOMINGO ELIAS Name: BRANDY ROBERSON Address: [address] [place] [address] Name: PT STATES, NO ONE
--- OUTSIDE RECORDS SUMMARY | 2023-05-24 11:00 | XMS_ITS | Continuity of Care Document ---
Author Name Unknown Organization [facility] Address [address] [place] [address]- Care Team Providers Care Grinding Wheel Dresser Name Role Phone Emmanuel CARRILLO, Zhang Primary Care Physician [place] [facility] [place](s): 03/10/23 - 04/09/23 [facility] [place] [address]- [place] Allergies, Adverse Reactions, Alerts Substance Reaction Severity Status penicillin Active Immunizations Given and Recorded Vaccine Date Status Refusal Reason influenza virus vaccine, inactivated 07/13/22 Give n influenza virus vaccine, inactivated 04/23/21 Anival rded influenza virus vaccine, inactivated 05/17/18 Give n influenza virus vaccine, inactivated 06/30/16 Give n [id number] bivalent booster vax 07/09/22 Recorded SARS-CoV-2 (COVID-19) [...] vaccine 7 09/14/06 Given 1Result Comment: SKIP BEAULIEU 2Admin Note: ADACEL VIS 06/25/08 GIVEN 3Admin [...] Status: Ordered dexamethasone/neomycin/polymyxin B ophthalmic 1 mg-3.5 mg-98411 u/gm ointment 1 application, Eyes, Both, 3 times a day, for 30 days, as needed for itchiness, # 3.5 Gm, 0 Refills, Acute 04/30/23 12:53:00 EDT, 03/31/23 12:53:00 EDT, Ophth Ointment, [facility]/pharmacy #1026, Partial fill upon patient request if the prescription is for a... Start Date: 03/31/23 Stop Date: 04/30/23 Status: Ordered diclofenac 1% topical gel = 2 Gm, Topically, 4 times a day, # 100 Gm, 5 Refills, Maintenance, 04/07/23 15:40:00 EDT, Gel, [facility]/pharmacy #1026, ., 162.6, cm, 04/07/23 9:53:00 EDT, [...] mL, 11 Refills, Maintenance, 01/12/23 17:33:00 EDT, [facility]/pharmacy #1026, 30, SPRAY 2 SPRAYS INTO EACH NOSTRIL TODOS [place], 162.6, cm, 01/12/23 14:53:00 EDT, Height Start Date: 01/12/23 Status: Ordered gabapentin 300 mg oral capsule 300 mg, 1, capsule, By Mouth, Daily, PRN, # 30 capsule, Refills 5, Tot. Refills 5, Maintenance, Pain , Moderate, 04/07/23 17:49:00 EDT, Route to Pharmacy Electronically, [facility]/pharmacy #1026, 162.6, cm, 04/07/23 9:53:00 EDT, Height Start Date: 04/07/23 Status: Ordered hydrocortisone 1% topical cream 1 application, Topically, 2 times a day, EYE LIDS AVOID GETTING IN EYES LABEL IN SW[place], # 30 Gm, 0 Refills, Maintenance, 03/18/23 13:43:00 EDT, Cream, [facility]/pharmacy #1026, Partial fill upon patient request if the prescription is for a schedule II o... Start Date: 03/18/23 Status: Ordered lansoprazole 15 mg oral enteric coated capsule See Instructions, TOME 1 CAPSULA POR VIA ORAL TODOS [place] TAKE 30 MINS BEFORE BREAKFAST, # 90 capsule, 0 Refills, Maintenance, 02/21/23 15:11:00 EDT, [id number], 162.6, cm, 01/12/23 14:53:00 EDT, Height Start Date: 02/21/23 Status: Ordered loratadine 10 mg oral tablet See Instructions, TOME KARL TABLETA POR VIA ORAL TODOS [place] CUANDO SEA NECESARIO ALLERGY SYMPTOMS, # 30 tablet, Refills 5, Maintenance, 11/13/22 16:18:00 EDT, Instructions Replace Required Details, Route to Pharmacy Electronically, [id number],... Start Date: 11/13/22 Status: Ordered metroNIDAZOLE 0.75% topical gel 1 application, Topically, 2 times a day, Apply a thin film to affected area after washing., # 45 Gm, 11 Refills, Maintenance, Rosacea, 01/12/23 17:32:00 EDT, [facility]/pharmacy #1026, 1 application Topically 2 times a day,Instr:Apply a thin film to affected... Start Date: 01/12/23 Status: Ordered naphazoline 0.012% ophthalmic solution 1-2 drops, Eyes, Both, 4 times a day, PRN Red eyes, Getting [id number]???name: Clear eyes, # 15 mL, 0 Refills, Maintenance, 03/31/23 13:56:00 EDT, . Start Date: 03/31/23 Status: Ordered nortriptyline 10 mg oral capsule 10 mg, 1, capsule, By Mouth, Daily at bedtime, # 30 capsule, Refills 2, Tot. Refills 2, Maintenance, 04/07/23 11:01:00 EDT, Route to Pharmacy Electronically, [facility]/pharmacy #[id number], Partial fill upon patient request if [...] Every 4 hours, PRN Cough, label in solomon islander, # 180 mL, 1 Refills, Maintenance, 12/01/22 17:23:00 EDT, [facility], Partial fill upon patient request if [...] Stop 07/07/23 16:35:00 EST, 07/12/22 16:35:00 EST, [facility]/pharmacy #1026, 162.6, cm, 05/06/22 10:10:00 EDT, Height, 81.1, kg, 11/24/20 11:26:00 EDT, Dry Weight Start Date: 07/12/22 Stop Date: 07/07/23 Status: Ordered zolpidem 10 mg oral tablet 1 tablet = 10 mg, By Mouth, Daily at bedtime, given by juan alberto, Neil Balderas, 0 Refills, Maintenance, 06/19/15 14:48:48 EST Start [...] Pain of left hip joint Confirmed Active [facility] Care Management Program Shoe Cementer Fransisco Chacon [phone] Confirmed Active 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 11 Confirmed Active Rosacea, acne Confirmed Active Chronic pain of both shoulders Confirmed Active Tear of meniscus of left knee 12 Confirmed 12/2015 Active Tension headache Confirmed 11/15/08 Active 1diagnosed at [facility] 2correction date food esophagus impactation is [...] Team Personnel Name: Daron Allen RN Position: [facility] RN Member Role: Primary Care Nurse Name: Zhang Benitez MD Position: [facility] Physician - Primary Care Member Role: PCP Address: Address: [address] [place] [address]- Care Team Related Persons Name: DOMINGO ELIAS Name: BRANDY ROBERSON Address: [address] [address] Name: STATES, NO ONE
--- OUTSIDE RECORDS SUMMARY | 2023-05-24 11:00 | XMS_ITS | Continuity of Care Document ---
Author Name Unknown Organization [facility] Address [address] [place] [address]- Care Team Providers Care Cash Controller Name Role Phone Emmanuel CARRILLO, Zhang Primary Care Physician Encounter [facility] [place] Date(s): 10/21/22 - 11/20/22 [facility]/[place] [address]- Attending Physician: Weston Arce MD Admitting Physician: Weston Arce MD Allergies, Adverse Reactions, Alerts Substance Reaction Severity Status penicillin Active Immunizations Given and Recorded Vaccine Date Status Refusal Reason influenza virus vaccine, inactivated 07/13/22 Give n influenza virus vaccine, inactivated 04/23/21 Anival rded influenza virus vaccine, inactivated 05/17/18 Give n influenza virus vaccine, inactivated 06/30/16 Give n [id number] bivalent booster vax 07/09/22 Recorded SARS-CoV-2 (COVID-19) [...] adult vaccine 7 09/14/06 Given 1Result Comment: [facility] AVLisa 2Admin Note: ADACEL VIS 06/25/08 GIVEN 3Admin Note: VIS 02/22/07 GIVEN 4Admin Note: VIS 02/22/07 given 5Admin Note: Hep B # 3 VIS 02/15/01 6Admin Note: HEP B # 2 VIS 02/15/2001 7Admin Note: VIS 02/05 HEP B #1 Medications ammonium lactate 12% topical cream 1 applicator, Topically, 2 times a day, # 280 Gm, 11 Refills, Maintenance, 05/28/21 12:56:00 EDT, [facility]/pharmacy #1026, 1 applicator Topically 2 times a [...] tablet, 1 Refills, Maintenance, 11/04/21 1:02:00 EDT, [facility]/pharmacy #1026, 162.6, cm, 10/29/21 10:19:00 EDT, Height, 81.1, kg, 11/24/2110:26:00 EDT, Dry Weight Start Date: 11/04/21 Stop Date: 01/03/22 Status: Ordered CeleBREX 200 mg oral capsule 1 capsule = 200 mg, By Mouth, 2 times a day, PRN as needed for pain, with food Discontinue meloxicam, # 60 capsule, 2 Refills, Maintenance, 09/01/22 12:03:00 EST, [facility]/pharmacy #1026, Partial fill upon patient request if the prescription is for a sche... Start Date: 09/01/22 Stop Date: 11/30/22 Status: Ordered cetirizine 10 mg oral tablet 1 tablet = 10 mg, By Mouth, Daily, In place of Loratadine label in [place], # 30 tablet, 1 Refills,Maintenance, 11/10/22 11:58:00 EDT, Tablet, [facility]/pharmacy #1026, Partial fill upon patient request if the prescription is for a schedule II opioid lorene... Start Date: 11/10/22 Status: Ordered Cipro 500 mg oral tablet 1 tablet = 500 mg, By Mouth, Every 24 hours, for 30 days, # 30 tablet, 0 Refills, Acute 11/27/22 10:31:00 EDT, 10/28/22 10:31:00 EDT, Tablet, [facility]/pharmacy #1026, ., 162.6, cm, 10/28/22 9:39:00 EDT, Height, 81.1, kg, 11/24/20 11:26:00 EDT, Dry Weight Start Date: 10/28/22 Stop Date: 11/27/22 Status: Ordered clonazePAM 0.5 mg oral tablet [...] 0 Refills, Maintenance, 04/29/22 15:30:00 EDT, Tablet, [facility]/pharmacy #1026, Partial fill upon patient request if the prescription is for... Start Date: 04/29/22 Stop Date: 05/27/22 Status: Ordered emtricitabine-tenofovir disoproxil 200 mg-300 mg oral tablet 1 tablet, By Mouth, Daily, for post-exposure prophylaxis take with dolutegravir, # 28 tablet, 0 Refills, Maintenance, 04/29/22 15:30:00 EDT, [facility]/pharmacy #1026, Partial fill upon patient request if [...] NOSTRIL TODOS [place], # 16 mL, 5 Refills, Maintenance,07/07/22 19:25:00 EST, [id number], 30, SPRAY 2 SPRAYS INTO EACH NOSTRIL TODOS [place], 162.6,cm, 05/06/22 10:10:00 EDT, Height, 81.1, kg, 11/24/... Start Date: 07/07/22 Status: Ordered gabapentin 400 mg oral capsule See Instructions, TOME KARL CAPSULA POR VIA ORAL VICTORIA VECES AL DACIA, # 90 capsule, Refills 11, Tot. Refills 11, 11/06/19 14:40:00 EDT, Instructions Replace Required Details, Route to Pharmacy Electronically, [facility]/pharmacy #1026, 162.56, cm, 10/18/19 10:4... Start Date: 11/06/19 Status: Ordered ketoconazole 2% topical cream 1 application, Topically, Daily, for 30 days, # 60 Gm, 1 Refills, Acute 12/27/22 10:57:00 EDT, 10/28/22 10:57:00 EDT, Cream, [facility]/pharmacy #1026, Partial fill upon patient request if the prescription is for a schedule II opioid drug., 1 application Top... Start Date: 10/28/22 Stop Date: 12/27/22 Status: Ordered lansoprazole 15 mg oral enteric coated capsule 1 capsule, By Mouth, Daily, INSTR:TAKE 30 MINUTES BEFORE BREAKFAST, # 30 capsule, 2 Refills, [id number], 162.6, cm, 10/29/21 10:19:00 EDT, Height, 81.1, kg, 11/24/20 11:26:00 EDT, Dry Weight Start Date: 11/02/21 Status: Ordered loperamide 2 mg oral capsule [...] Replace Required Details, Route to Pharmacy Electronically, [facility],... Start Date: 11/13/22 Status: Ordered metroNIDAZOLE 0.75% topical gel 1 application, Topically, 2 times a day, Apply a thin film to affected area after washing., # 45 Gm, 11 Refills, Maintenance, Rosacea, 07/28/22 15:02:00 EST, [facility]/pharmacy #1026, 1 application Topically 2 times a day,Instr:Apply a thin film to affected... Start Date: 07/28/22 Status: Ordered mometasone 0.1% topical cream 1 application, Topically, Daily, apply a thin film in affected area- chest, abdomen, back, # 90 Gm,1 Refills, Maintenance, 10/15/20 22:55:00 EST, Cream, [facility]/pharmacy #1026, 1 application Topically Daily,Instr:apply a thin film in affected area- del... Start Date: 10/15/20 Status: Ordered montelukast 10 mg oral tablet 10 mg, 1, tablet, By Mouth, Daily at bedtime, # 30 tablet, Refills 11, Tot. Refills 11, Maintenance, 10/30/21 14:05:00 EDT, Route to Pharmacy Electronically, [facility]/pharmacy #1026, Partial fill upon patient request if the prescription is for a schedule I... Start Date: 10/30/21 Status: Ordered nitroglycerin 0.4 mg sublingual tablet 1 tablet = 0.4 mg, Sublingual, Every 5 minutes, PRN Chest Pain, (not to exceed 3 doses/15 min--if pain persists, seek medical attention), # 25 tablet, 3 Refills, Maintenance, 11/09/21 16:07:00 EDT, Tablet, [facility]/pharmacy #1026, Partial fill upon patient... Start Date: 11/09/21 Status: Ordered olopatadine 0.1% ophthalmic solution 1 drops, Eyes, Both, 2 times a day, PRN eye allergies, # 5 mL, 11 Refills, Maintenance, 10/28/22 10:43:00 EDT, Ophth Solution, [facility]/pharmacy #1026, ., 1 drops Eyes, Both 2 times a day,PRN:eye allergies, 162.6, cm, 10/28/22 9:39:00 EDT, Height, 81.1, kg... Start Date: 10/28/22 Status: Ordered QUEtiapine 300 mg oral tablet 1 tablet = 300 mg, By Mouth, Daily at bedtime, narendra, Radha Cueva, # 30 tablet, 0 Refills, [...] Every 4 hours, PRN Cough, label in [place], # 180 mL, 1 Refills, Maintenance, 11/10/22 11:58:00 EDT, [facility]/pharmacy #1026, Partial fill upon patient request if the prescription is for a schedule II opioid drug., 20 mL By Mouth Every 4 h... Start Date: 11/10/22 Status: Ordered sildenafil 100 mg oral tablet [...] times a day, Take before meal ; [place], # 120 tablet, 11 Refills, Maintenance, 06/01/21 13:40:00 EDT, [facility]/pharmacy #1026, 162.6, cm, 05/28/21 11:04:00 EDT, Height, 81.1, kg, 11/24/20 11:26:00 EDT, Dry Weight Start Date: 06/01/21 Status: Ordered tamsulosin 0.4 mg oral capsule 0.4 mg, 1, capsule, By Mouth, Daily, # 30 capsule, Refills 5, Tot. Refills 5, Maintenance, 219:31:00 EDT, Route to Pharmacy Electronically, [facility]/pharmacy #1026, 162.6, cm, 11/24/20 11:22:00 EDT, Height, 81.1, kg, 11/24/20 11:26:00 EDT, Dry Weight Start Date: 12/05/20 Status: Ordered Vitamin D3 1000 intl units oral tablet 1 tablet = 25 mcg, By Mouth, Daily, for 30 days, # 30 tablet, 11 Refills, Physician Stop 07/07/23 16:35:00 EST, 07/12/22 16:35:00 EST, [facility], 162.6, cm, 05/06/22 10:10:00 EDT, Height, [...] of left hip joint Confirmed Active [facility] Care Management Program Nurse Quality Fransisco Oswaldo [phone] Confirmed Active 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 11 Confirmed Active Rosacea, acne Confirmed Active Chronic pain of both shoulders Confirmed Active Positive serology for syphilis Confirmed Active Tear of meniscus of left knee 12 Confirmed 12/2015 Active Tension headache Confirmed 11/15/08 Active 1diagnosed at [facility] 2correction date food esophagus impactation is [...] Team Personnel Name: Daron Allen RN Position: [facility] RN Member Role: Primary Care Nurse Name: Zhang Benitez MD Position: [facility] Primary Care Physician Member Role: PCP Address: Address: [address] [place] [address]- Care Team Related Persons Name: DOMINGO ELIAS Name: BRANDY ROBERSON Address: [place] [address] Name: STATES, NO ONE
--- OUTSIDE RECORDS SUMMARY | 2023-05-24 11:00 | XMS_ITS | Continuity of Care Document ---
Author Name Unknown Organization [facility] Address [address] [place] [address]- Care Team Providers Care Certifier Name Role Phone Zhang Benitez MD Primary Care Physician Encounter [facility] Date(s): 12/24/22 - 01/23/23 [facility]/[address] [address]- [place] Allergies, Adverse Reactions, Alerts Substance Reaction Severity Status penicillin Active Immunizations Given and Recorded Vaccine Date Status Refusal Reason influenza virus vaccine, inactivated 07/13/22 Give n influenza virus vaccine, inactivated 04/23/21 Anival rded influenza virus vaccine, inactivated 05/17/18 Give n influenza virus vaccine, inactivated 06/30/16 Give n [id number] bivalent booster vax 07/09/22 Recorded SARS-CoV-2 (COVID-19) [...] Refills, Maintenance, 05/28/21 12:56:00 EDT, [facility]/pharmacy #[id number], 1 applicator Topically 2 times a [...] Refills, Maintenance, 11/04/21 1:02:00 EDT, [facility]/pharmacy #1026, 162.6, cm, 10/29/21 10:19:00 EDT, Height, 81.1, kg, 11/24/2110:26:00 EDT, Dry Weight Start Date: 11/04/21 Stop Date: 01/03/22 Status: Ordered celecoxib 200 mg oral capsule 1 capsule, By Mouth, 2 times a day, PRN NEEDED FOR PAIN WITH FOOD DISCONTINUE MELOXICAM, # 60 capsule, 0 Refills, Maintenance, 12/12/22 21:40:00 EDT, [id number], 162.6, cm, 11/19/22 11:04:00 EDT, Height Start Date: 12/12/22 Status: Ordered cetirizine 10 mg oral tablet 1 tablet = 10 mg, By Mouth, Daily, In place of Loratadine label in new zealander, # 30 tablet, 1 Refills,Maintenance, 11/10/22 11:58:00 EDT, Tablet, [facility]/pharmacy #1026, Partial fill upon patient request if [...] Maintenance, 04/29/22 15:30:00 EDT, Tablet, [facility]/pharmacy #1026, Partial fill upon patient request if the prescription is for... Start Date: 04/29/22 Stop Date: 05/27/22 Status: Ordered emtricitabine-tenofovir disoproxil 200 mg-300 mg oral tablet 1 tablet, By Mouth, Daily, for post-exposure prophylaxis take with dolutegravir, # 28 tablet, 0 Refills, Maintenance, 04/29/22 15:30:00 EDT, [facility]/pharmacy #1026, Partial fill upon patient request if [...] Refills, Maintenance, 01/12/23 17:33:00 EDT, [facility]/pharmacy #1026, 30, SPRAY 2 SPRAYS INTO EACH NOSTRIL TODOS [place], 162.6, cm, 01/12/23 14:53:00 EDT, Height Start Date: 01/12/23 Status: Ordered gabapentin 400 mg oral capsule See Instructions, TOME KARL CAPSULA POR VIA ORAL VICTORIA VECES AL DACIA, # 90 capsule, Refills 11, Tot. Refills 11, 11/06/19 14:40:00 EDT, Instructions Replace Required Details, Route to Pharmacy Electronically, [facility]/pharmacy #1026, 162.56, cm, 10/18/19 10:4... Start Date: 11/06/19 Status: Ordered lansoprazole 15 mg oral enteric coated capsule See Instructions, TOME 1 CAPSULA POR VIA ORAL TODOS [place] TAKE 30 MINS BEFORE BREAKFAST, # 30 capsule, 2 Refills, Maintenance, 11/23/22 7:43:00 EDT, [id number], 162.6, cm, 11/19/22 11:04:00 EDT, Height, 81.1, [...] Details, Route to Pharmacy Electronically, [id number],... Start Date: 11/13/22 Status: Ordered metroNIDAZOLE 0.75% topical gel 1 application, Topically, 2 times a day, Apply a thin film to affected area after washing., # 45 Gm, 11 Refills, Maintenance, Rosacea, 01/12/23 17:32:00 EDT, [facility]/pharmacy #1026, 1 application Topically 2 times a day,Instr:Apply a thin film to affected... Start Date: 01/12/23 Status: Ordered mometasone 0.1% topical cream 1 application, Topically, Daily, apply a thin film in affected area- chest, abdomen, back, # 90 Gm,1 Refills, Maintenance, 10/15/20 22:55:00 EST, Cream, [facility]/pharmacy #1026, 1 application Topically Daily,Instr:apply a thin film in affected area- del... Start Date: 10/15/20 Status: Ordered montelukast 10 mg oral tablet 10 mg, 1, tablet, By Mouth, Daily at bedtime, # 30 tablet, Refills 11, Tot. Refills 11, Maintenance, 10/30/21 14:05:00 EDT, Route to Pharmacy Electronically, [facility]/pharmacy #1026, Partial fill upon patient request if the prescription is for a schedule I... Start Date: 10/30/21 Status: Ordered nitroglycerin 0.4 mg sublingual tablet 1 tablet = 0.4 mg, Sublingual, Every 5 minutes, PRN Chest Pain, (not to exceed 3 doses/15 min--if pain persists, seek medical attention), # 25 tablet, 3 Refills, Maintenance, 11/09/21 16:07:00 EDT, Tablet, [facility]/pharmacy #1026, Partial fill upon patient... Start Date: 11/09/21 Status: Ordered olopatadine 0.1% ophthalmic solution 1 drops, Eyes, Both, 2 times a day, PRN eye allergies, # 5 mL, 11 Refills, Maintenance, 10/28/22 10:43:00 EDT, Ophth Solution, [facility]/pharmacy #1026, ., 1 drops Eyes, Both 2 [...] Every 4 hours, PRN Cough, label in [place] zealander, # 180 mL, 1 Refills, Maintenance, 12/01/22 17:23:00 EDT, [facility], Partial fill upon patient request if [...] times a day, Take before meal ; new zealander, # 120 tablet, 11 Refills, Maintenance, 06/01/21 13:40:00 EDT, [facility]/pharmacy #1026, 162.6, cm, 05/28/21 11:04:00 EDT, Height, 81.1, kg, 11/24/20 11:26:00 EDT, Dry Weight Start Date: 06/01/21 Status: Ordered tamsulosin 0.4 mg oral capsule 0.4 mg, 1, capsule, By Mouth, Daily, # 30 capsule, Refills 5, Tot. Refills 5, Maintenance, 219:31:00 EDT, Route to Pharmacy Electronically, [facility]/pharmacy #1026, 162.6, cm, 11/24/20 11:22:00 EDT, Height, 81.1, kg, 11/24/20 11:26:00 EDT, Dry Weight Start Date: 12/05/20 Status: Ordered Vitamin D3 1000 intl units oral tablet 1 tablet = 25 mcg, By Mouth, Daily, for 30 days, # 30 tablet, 11 Refills, Physician Stop 07/07/23 16:35:00 EST, 07/12/22 16:35:00 EST, [facility]/pharmacy #1026, 162.6, cm, 05/06/22 10:10:00 EDT, Height, 81.1, kg, 11/24/20 11:26:00 EDT, Dry Weight Start Date: 07/12/22 Stop Date: 07/07/23 Status: Ordered zolpidem 10 mg oral tablet 1 tablet = 10 mg, By Mouth, Daily at bedtime, given by psych, Lorie Castano MANAGER CREATIVE, 0 Refills, Maintenance, 06/19/15 14:48:48 Start Date: [...] of left hip joint Confirmed Active [facility] Care Management Program Curer Acid Drum Fransisco Chacon [phone] Confirmed Active 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 11 Confirmed Active Rosacea, acne Confirmed Active Chronic pain of both shoulders Confirmed Active Positive serology for syphilis Confirmed Active Tear of meniscus of left knee 12 Confirmed 12/2015 Active Tension headache Confirmed 11/15/08 Active 1diagnosed at [facility] 2correction date food esophagus impactation is 06/30/12 [...] Care Nurse Name: Zhang Benitez MD Position: [facility] Physician - Primary Care Member Role: PCP Address: Address: [address] [place] [id number]- Care Team Related Persons Name: DOMINGO ELIAS Name: BRANDY ROBERSON Address: home [address] [place] [address] Name: PT STATES, NO ONE
--- OUTSIDE RECORDS SUMMARY | 2023-05-24 11:01 | XMS_ITS | Continuity of Care Document ---
Author Name Unknown Organization [facility] Address [address] [place] [address]- Care Team Providers Care Rough Rounder Name Role Phone Emmanuel CARRILLO, Zhang Primary Care Physician Encounter [facility] Date(s): 04/13/23 - 05/13/23 [facility] [address] [place] [address]- Attending Physician: Mychal De Anda Admitting Physician: AdmMychal ny Referring Physician: Admtr, Mychal Allergies, Adverse Reactions, Alerts Substance Reaction Severity Status penicillin Active Immunizations Given and Recorded Vaccine Date Status Refusal Reason influenza virus vaccine, inactivated 07/13/22 Give n influenza virus vaccine, inactivated 04/23/21 Anival rded influenza virus vaccine, inactivated 05/17/18 Give n influenza virus vaccine, inactivated 06/30/16 Give n [id number] bivalent booster vax 07/09/22 Recorded SARS-CoV-2 (COVID-19) [...] adult vaccine 7 09/14/06 Given 1Result Comment: [facility] 2Admin Note: ADACEL VIS 06/25/08 GIVEN 3Admin [...] 14:07:00 EDT Start Date: 03/31/23 Status: Ordered cetirizine 10 mg oral tablet 1 tablet = 10 mg, By Mouth, Daily, PRN allergy symptoms, # 90 tablet, 0 Refills, Maintenance, 04/13/23 12:35:00 EDT, Tablet, [facility]/pharmacy #1026, Partial fill upon patient request if the prescription is for a schedule II opioid drug., 162.6, cm, ... Start Date: 04/13/23 Status: Ordered clonazePAM 0.5 mg oral tablet [...] Dry Weight Start Date: 09/28/22 Status: Ordered diclofenac 1% topical gel = 2 Gm, Topically, 4 times a day, # 100 Gm, 5 Refills, Maintenance, 04/07/23 15:40:00 EDT, Gel, [facility]/pharmacy #1026, ., 162.6, cm, 04/07/23 9:53:00 EDT, [...] 11 Refills, Maintenance, 01/12/23 17:33:00 EDT, [facility]/pharmacy #1026, 30, SPRAY 2 SPRAYS INTO EACH NOSTRIL TODOS [place], 162.6, cm, 01/12/23 14:53:00 EDT, Height Start Date: 01/12/23 Status: Ordered gabapentin 300 mg oral capsule 300 mg, 1, capsule, By Mouth, Daily, PRN, # 30 capsule, Refills 5, Tot. Refills 5, Maintenance, Pain , Moderate, 04/07/23 17:49:00 EDT, Route to Pharmacy Electronically, [facility]/pharmacy #1026, 162.6, cm, 04/07/23 9:53:00 EDT, Height Start Date: 04/07/23 Status: Ordered hydrocortisone 1% topical cream 1 application, Topically, 2 times a day, EYE LIDS AVOID GETTING IN EYES LABEL IN [place], # 30 Gm, 0 Refills, Maintenance, 03/18/23 13:43:00 EDT, Cream, [facility]/pharmacy #1026, Partial fill upon patient request if the prescription is for a schedule II o... Start Date: 03/18/23 Status: Ordered lansoprazole 15 mg oral enteric coated capsule See Instructions, TOME 1 CAPSULA POR VIA ORAL TODOS [place] TAKE 30 MINS BEFORE BREAKFAST, # 90 capsule, 0 Refills, Maintenance, 02/21/23 15:11:00 EDT, [id number], 162.6, cm, 01/12/23 14:53:00 EDT, Height Start Date: 02/21/23 Status: Ordered loratadine 10 mg oral tablet See Instructions, TOME KARL TABLETA POR VIA ORAL TODOS [place] CUANDO SEA NECESARIO ALLERGY SYMPTOMS, # 30 tablet, Refills 5, Maintenance, 11/13/22 16:18:00 EDT, Instructions Replace Required Details, Route to Pharmacy Electronically, [id number],... Start Date: 11/13/22 Status: Ordered metroNIDAZOLE 0.75% topical gel 1 application, Topically, 2 times a day, Apply a thin film to affected area after washing., # 45 Gm, 11 Refills, Maintenance, Rosacea, 01/12/23 17:32:00 EDT, [facility]/pharmacy #1026, 1 application Topically 2 times a day,Instr:Apply a thin film to affected... Start Date: 01/12/23 Status: Ordered naphazoline 0.012% ophthalmic solution 1-2 drops, Eyes, Both, 4 times a day, PRN Red eyes, Getting ubhm-tdi-uemnnwk???name: Clear eyes, # 15 mL, 0 Refills, Maintenance, 03/31/23 13:56:00 EDT, . Start Date: 03/31/23 Status: Ordered nortriptyline 10 mg oral capsule 10 mg, 1, capsule, By Mouth, Daily at bedtime, # 30 capsule, Refills 2, Tot. Refills 2, Maintenance, 04/07/23 11:01:00 EDT, Route to Pharmacy Electronically, [facility]/pharmacy #1026, Partial fill upon patient request [...] Every 4 hours, PRN Cough, label in austrian, # 180 mL, 1 Refills, Maintenance, 12/01/22 17:23:00 EDT, [facility], Partial fill upon patient request if the [...] 07/07/23 16:35:00 EST, 07/12/22 16:35:00 EST, [facility]/pharmacy #1026, 162.6, cm, 05/06/22 10:10:00 EDT, Height, 81.1, kg, 11/24/20 11:26:00 EDT, Dry Weight Start Date: 07/12/22 Stop Date: 07/07/23 Status: Ordered zolpidem 10 mg oral tablet 1 tablet = 10 mg, By Mouth, Daily at bedtime, given by psych, Neil Balderas, 0 Refills, Maintenance, 06/19/15 14:48:48 [...] Pain of left hip joint Confirmed Active [facility] Care Management Program Meter Tester Fransisco Chacon [phone] Confirmed Active 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 11 Confirmed Active Rosacea, acne Confirmed Active Chronic pain of both shoulders Confirmed Active Tear of meniscus of left knee 12 Confirmed 12/2015 Active Tension headache Confirmed 11/15/08 Active 1diagnosed at [facility] 2correction date food esophagus impactation is [...] Team Personnel Name: Daron Allen RN Position: [facility] RN Member Role: Primary Care Nurse Name: Zhang Benitez MD Position: [facility] Physician - Primary Care Member Role: PCP Address: Address: [address] [place] [address]- Care Team Related Persons Name: DOMINGO ELIAS Name: BRANDY ROBERSON Address: [address] [address] Name: STATES, NO ONE
--- OUTSIDE RECORDS SUMMARY | 2023-05-24 11:01 | XMS_ITS | Continuity of Care Document ---
Author Name Unknown Organization [facility] Address [address] [place] [address]- Care Team Providers Care River Tester Name Role Phone Zhang Benitez MD Primary Care Physician Encounter [facility] Date(s): 04/18/23 - 05/18/23 [facility] [address]- [place] Allergies, Adverse Reactions, Alerts Substance Reaction Severity Status penicillin Active Immunizations Given and Recorded Vaccine Date Status Refusal Reason influenza virus vaccine, inactivated 07/13/22 Give n influenza virus vaccine, inactivated 04/23/21 Anival rded influenza virus vaccine, inactivated 05/17/18 Give n influenza virus vaccine, inactivated 06/30/16 Give n [id number] bivalent booster vax 07/09/22 Recorded SARS-CoV-2 (COVID-19) [...] 0 Refills, Maintenance, 04/13/23 12:35:00 EDT, Tablet, [facility]/pharmacy #1026, Partial fill upon patient request if [...] 5 Refills, Maintenance, 04/07/23 15:40:00 EDT, Gel, [facility]/pharmacy #1026, ., 162.6, cm, 04/07/23 9:53:00 EDT, [...] Instructions, SPRAY 2 SPRAYS INTO EACH NOSTRIL TOS ZEYAD COLON, # 16 mL, 11 Refills, Maintenance, 01/12/23 17:33:00 EDT, [facility]/pharmacy #1026, 30, SPRAY 2 SPRAYS INTO EACH NOSTRIL TODOS [place], 162.6, cm, 01/12/23 14:53:00 EDT, Height Start Date: 01/12/23 Status: Ordered gabapentin 300 mg oral capsule 300 mg, 1, capsule, By Mouth, Daily, PRN, # 30 capsule, Refills 5, Tot. Refills 5, Maintenance, Pain , Moderate, 04/07/23 17:49:00 EDT, Route to Pharmacy Electronically, [facility]/pharmacy #1026, 162.6, cm, 04/07/23 9:53:00 EDT, Height Start Date: 04/07/23 Status: Ordered hydrocortisone 1% topical cream 1 application, Topically, 2 times a day, EYE LIDS AVOID GETTING IN EYES LABEL IN [place], # 30 Gm, 0 Refills, Maintenance, 03/18/23 [...] Refills, Maintenance, 02/21/23 15:11:00 EDT, [facility], 162.6, cm, 01/12/23 14:53:00 EDT, Height Start Date: 02/21/23 Status: Ordered loratadine 10 mg oral tablet See Instructions, TOME KARL TABLETA POR VIA ORAL TODOS [place] CUANDO SEA NECESARIO ALLERGY SYMPTOMS, # 30 tablet, Refills 5, Maintenance, 11/13/22 16:18:00 EDT, Instructions Replace Required Details, Route to Pharmacy Electronically, [facility],... Start Date: 11/13/22 Status: Ordered metroNIDAZOLE 0.75% topical gel 1 application, Topically, 2 times a day, Apply a thin film to affected area after washing., # 45 Gm, 11 Refills, Maintenance, Rosacea, 01/12/23 17:32:00 EDT, [facility]/pharmacy #1026, 1 application Topically 2 times a day,Instr:Apply a thin film to affected... Start Date: 01/12/23 Status: Ordered naphazoline 0.012% ophthalmic solution 1-2 drops, Eyes, Both, 4 times a day, PRN Red eyes, Getting tbns-onc-ovkzitc???name: Clear eyes, # 15 mL, 0 Refills, Maintenance, 03/31/23 13:56:00 EDT, . Start Date: 03/31/23 Status: Ordered nortriptyline 10 mg oral capsule 10 mg, 1, capsule, By Mouth, Daily at bedtime, # 30 capsule, Refills 2, Tot. Refills 2, Maintenance, 04/07/23 11:01:00 EDT, Route to Pharmacy Electronically, [facility]/pharmacy #1026, Partial fill upon patient request if [...] Every 4 hours, PRN Cough, label in kazakh, # 180 mL, 1 Refills, Maintenance, 12/01/22 17:23:00 EDT, [facility], Partial [...] Stop 07/07/23 16:35:00 EST, 07/12/22 16:35:00 EST, [facility]/pharmacy #1026, 162.6, cm, 05/06/22 10:10:00 EDT, Height, [...] of left hip joint Confirmed Active [facility] Care Management Program Flowers Salesperson Fransisco Chacon [phone] Confirmed Active 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 11 Confirmed Active Rosacea, acne Confirmed Active Chronic pain of both shoulders Confirmed Active Tear of meniscus of left knee 12 Confirmed 12/2015 Active Tension headache Confirmed 11/15/08 Active 1diagnosed at [facility] 2correction date food esophagus impactation is 06/30/12 [...] MD Position: [facility] Physician - Primary Care Member Role: PCP Address: Address: [address] [place] [address]- Care Team Related Persons Name: DOMINGO ELIAS Name: BRANDY ROBERSON Address: [address] [address] Name: PT STATES, NO ONE
--- OUTSIDE RECORDS SUMMARY | 2023-05-24 11:01 | XMS_ITS | Continuity of Care Document ---
Author Name Unknown Organization [facility] Address [address] [place] [address]- Care Team Providers Care Elevator Examiner Name Role Phone Emmanuel CARRILLO, Zhang Primary Care Physician Encounter [facility] Date(s): 04/20/23 - 05/20/23 [facility]/[place] [address]- [place] Allergies, Adverse Reactions, Alerts Substance Reaction Severity Status penicillin Active Immunizations Given and Recorded Vaccine Date Status Refusal Reason influenza virus vaccine, inactivated 07/13/22 Give n influenza virus vaccine, inactivated 04/23/21 Anival rded influenza virus vaccine, inactivated 05/17/18 Give n influenza virus vaccine, inactivated 06/30/16 Give n [id number] bivalent booster vax 07/09/22 Recorded SARS-CoV-2 (COVID-19) [...] adult vaccine 7 09/14/06 Given 1Result Comment: [facility] 2Admin Note: ADACEL VIS [...] 0 Refills, Maintenance, 04/13/23 12:35:00 EDT, Tablet, [facility]/pharmacy #[id number], Partial fill upon patient request [...] 5 Refills, Maintenance, 04/07/23 15:40:00 EDT, Gel, [facility]/pharmacy #1026, ., 162.6, cm, 04/07/23 9:53:00 [...] mL, 11 Refills, Maintenance, 01/12/23 17:33:00 EDT, [facility]/pharmacy #1026, 30, SPRAY 2 SPRAYS INTO EACH NOSTRIL TODOS [place], 162.6, cm, 01/12/23 14:53:00 EDT, Height Start Date: 01/12/23 Status: Ordered gabapentin 300 mg oral capsule 300 mg, 1, capsule, By Mouth, Daily, PRN, # 30 capsule, Refills 5, Tot. Refills 5, Maintenance, Pain , Moderate, 04/07/23 17:49:00 EDT, Route to Pharmacy Electronically, [facility]/pharmacy #1026, 162.6, cm, 04/07/23 9:53:00 EDT, Height Start Date: 04/07/23 Status: Ordered hydrocortisone 1% topical cream 1 application, Topically, 2 times a day, EYE LIDS AVOID GETTING IN EYES LABEL IN [place]NA[place], # 30 Gm, 0 Refills, Maintenance, 03/18/23 13:43:00 EDT, Cream, [facility]/pharmacy #1026, Partial fill upon patient request if the prescription is for a schedule II o... Start Date: 03/18/23 Status: Ordered lansoprazole 15 mg oral enteric coated capsule See Instructions, TOME 1 CAPSULA POR VIA ORAL TODOS [place] TAKE 30 MINS BEFORE BREAKFAST, # 90 capsule, 0 Refills, Maintenance, 02/21/23 15:11:00 EDT, [id number], 162.6, cm, 01/12/23 14:53:00 EDT, Height Start Date: 02/21/23 Status: Ordered loratadine 10 mg oral tablet See Instructions, TOME KARL TABLETA POR VIA ORAL TODOS [place] CUANDO SEA NECESARIO ALLERGY SYMPTOMS, # 30 tablet, Refills 5, Maintenance, 11/13/22 16:18:00 EDT, Instructions Replace Required Details, Route to Pharmacy Electronically, [facility],... Start Date: 11/13/22 Status: Ordered metroNIDAZOLE 0.75% topical gel 1 application, Topically, 2 times a day, Apply a thin film to affected area after washing., # 45 Gm, 11 Refills, Maintenance, Rosacea, 01/12/23 17:32:00 EDT, [facility]/pharmacy #1026, 1 application Topically 2 times a day,Instr:Apply a thin film to affected... Start Date: 01/12/23 Status: Ordered naphazoline 0.012% ophthalmic solution 1-2 drops, Eyes, Both, 4 times a day, PRN Red eyes, Getting yany-idt-nyokdub???name: Clear eyes, # 15 mL, 0 Refills, Maintenance, 03/31/23 13:56:00 EDT, . Start Date: 03/31/23 Status: Ordered nortriptyline 10 mg oral capsule 10 mg, 1, capsule, By Mouth, Daily at bedtime, # 30 capsule, Refills 2, Tot. Refills 2, Maintenance, 04/07/23 11:01:00 EDT, Route to Pharmacy Electronically, [facility]/pharmacy #1026, Partial fill upon patient request [...] hours, PRN Cough, label in [place], # 180 mL, 1 Refills, Maintenance, 12/01/22 17:23:00 EDT, [facility], Partial fill upon patient request if [...] Stop 07/07/23 16:35:00 EST, 07/12/22 16:35:00 EST, [facility]/pharmacy #1026, 162.6, cm, 05/06/22 10:10:00 EDT, Height, 81.1, kg, 11/24/20 11:26:00 EDT, Dry Weight Start Date: 07/12/22 Stop Date: 07/07/23 Status: Ordered zolpidem 10 mg oral tablet 1 tablet = 10 mg, By Mouth, Daily at bedtime, given by psych, Neil Balderas, [place] Refills, Maintenance, 06/19/15 14:48:48 EST Start Date: [...] of left hip joint Confirmed Active [facility] Care Management Program Tile Machine Operator Fransisco Chacon [phone] Confirmed Active 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 11 Confirmed Active Rosacea, acne Confirmed Active Chronic pain of both shoulders Confirmed Active Tear of meniscus of left knee 12 Confirmed 12/2015 Active Tension headache Confirmed 11/15/08 Active 1diagnosed at [facility] 2correction date food esophagus impactation is 06/30/12 [...] Team Personnel Name: Daron Allen RN Position: [facility] RN Member Role: Primary Care Nurse Name: Zhang Benitez MD Position: [facility] Physician - Primary Care Member Role: PCP Address: Address: [address] [place] [address]- Care Team Related Persons Name: DOMINGO ELIAS Name: BRANDY ROBERSON Address: [address] [address] Name: STATES, NO ONE
--- OUTSIDE RECORDS SUMMARY | 2023-05-24 11:02 | XMS_ITS | Continuity of Care Document ---
Author Name Unknown Organization [facility] Address [address] [place] [address]- Care Team Providers Care Rag Baler Name Role Phone Zhang Benitez MD Primary Care Physician Encounter [facility] [place] Date(s): 04/13/23 - 05/13/23 [facility] [address]- [place] Allergies, Adverse Reactions, Alerts Substance Reaction Severity Status penicillin Active Immunizations Given and Recorded Vaccine Date Status Refusal Reason influenza virus vaccine, inactivated 07/13/22 Give n influenza virus vaccine, inactivated 04/23/21 Anival rded influenza virus vaccine, inactivated 05/17/18 Give n influenza virus vaccine, inactivated 06/30/16 Give n [id number] bivalent booster vax 07/09/22 Recorded SARS-CoV-2 (COVID-19) [...] Refills, Maintenance, 04/13/23 12:35:00 EDT, Tablet, [facility]/pharmacy #[id number], Partial fill upon patient request [...] Refills, Maintenance, 04/07/23 15:40:00 EDT, Gel, [facility]/pharmacy #[id number], ., 162.6, cm, 04/07/23 9:53:00 [...] 11 Refills, Maintenance, 01/12/23 17:33:00 EDT, [facility]/pharmacy #[id number], 30, SPRAY 2 SPRAYS INTO EACH NOSTRIL TODOS [place], 162.6, cm, 01/12/23 14:53:00 EDT, Height Start Date: 01/12/23 Status: Ordered gabapentin 300 mg oral capsule 300 mg, 1, capsule, By Mouth, Daily, PRN, # 30 capsule, Refills 5, Tot. Refills 5, Maintenance, Pain , Moderate, 04/07/23 17:49:00 EDT, Route to Pharmacy Electronically, [facility]/pharmacy #[id number], 162.6, cm, 04/07/23 9:53:00 EDT, Height Start Date: 04/07/23 Status: Ordered hydrocortisone 1% topical cream 1 application, Topically, 2 times a day, EYE LIDS AVOID GETTING IN EYES LABEL IN IRANIAN, # 30 Gm, 0 Refills, Maintenance, 03/18/23 [...] Refills, Maintenance, 02/21/23 15:11:00 EDT, [id number], 162.6, cm, 01/12/23 14:53:00 EDT, Height Start Date: 02/21/23 Status: Ordered loratadine 10 mg oral tablet See Instructions, TOME KARL TABLETA POR VIA ORAL TODOS [place] COLON CUANDO SEA NECESARIO ALLERGY SYMPTOMS, # 30 tablet, Refills 5, Maintenance, 11/13/22 16:18:00 EDT, Instructions Replace Required Details, Route to Pharmacy Electronically, [id number],... Start Date: 11/13/22 Status: Ordered metroNIDAZOLE 0.75% topical gel 1 application, Topically, 2 times a day, Apply a thin film to affected area after washing., # 45 Gm, 11 Refills, Maintenance, Rosacea, 01/12/23 17:32:00 EDT, [facility]/pharmacy #[id number], 1 application Topically 2 times a day,Instr:Apply a thin film to affected... Start Date: 01/12/23 Status: Ordered naphazoline 0.012% ophthalmic solution 1-2 drops, Eyes, Both, 4 times a day, PRN Red eyes, Getting [id number]???name: Clear eyes, # 15 mL, 0 Refills, Maintenance, 03/31/23 13:56:00 EDT, . Start Date: 03/31/23 Status: Ordered nortriptyline 10 mg oral capsule 10 mg, 1, capsule, By Mouth, Daily at bedtime, # 30 capsule, Refills 2, Tot. Refills 2, Maintenance, 04/07/23 11:01:00 EDT, Route to Pharmacy Electronically, [facility]/pharmacy #[id number], Partial fill upon patient request [...] Every 4 hours, PRN Cough, label in portuguese, # 180 mL, 1 Refills, Maintenance, 12/01/22 17:23:00 EDT, [facility], Partial fill upon patient request if [...] 07/07/23 16:35:00 EST, 07/12/22 16:35:00 EST, [facility]/pharmacy #[id number], 162.6, cm, 05/06/22 10:10:00 EDT, [...] of left hip joint Confirmed Active [facility] Care Management Program Sales Promotion Director Fransisco Chacon [phone] Confirmed Active 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 11 Confirmed Active Rosacea, acne Confirmed Active Chronic pain of both shoulders Confirmed Active Tear of meniscus of left knee 12 Confirmed 12/2015 Active Tension headache Confirmed 11/15/08 Active 1diagnosed at [facility] 2correction date food esophagus impactation is 06/30/12 [...] Team Personnel Name: Daron Allen RN Position: [facility] RN Member Role: Primary Care Nurse Name: Zhang Benitez MD Position: [facility] Physician - Primary Care Member Role: PCP Address: Address: [address] [place] [address]- Care Team Related Persons Name: DOMINGO ELIAS Name: BRANDY ROBERSON Address: [address] [address] Name: PT STATES, NO ONE
--- OUTSIDE RECORDS SUMMARY | 2023-05-24 11:02 | XMS_ITS | Continuity of Care Document ---
Author Name Unknown Organization [facility] Address [address] [place] [address]- Care Team Providers Care Certified Registered Nurse Practitioner Name Role Phone Emmanuel CARRILLO, Zhang Primary Care Physician [place] [facility] [place] Date(s): 10/11/22 - 11/10/22 [facility] [address]- [place] Allergies, Adverse Reactions, Alerts Substance Reaction Severity Status penicillin Active Immunizations Given and Recorded Vaccine Date Status Refusal Reason influenza virus vaccine, inactivated 07/13/22 Give n influenza virus vaccine, inactivated 04/23/21 Anival rded influenza virus vaccine, inactivated 05/17/18 Give n influenza virus vaccine, inactivated 06/30/16 Give n [id number] bivalent booster vax 07/09/22 Recorded SARS-CoV-2 (COVID-19) [...] adult vaccine 7 09/14/06 Given 1Result Comment: [facility] CHARLY MEDRANO 2Admin Note: ADACEL VIS [...] Gm, 11 Refills, Maintenance, 05/28/21 12:56:00 EDT, [facility]/pharmacy #[id number], 1 applicator Topically 2 [...] tablet, 1 Refills, Maintenance, 11/04/21 1:02:00 EDT, [facility]/pharmacy #[id number], 162.6, cm, 10/29/21 10:19:00 EDT, Height, 81.1, kg, 11/24/2110:26:00 EDT, Dry Weight Start Date: 11/04/21 Stop Date: 01/03/22 Status: Ordered CeleBREX 200 mg oral capsule 1 capsule = 200 mg, By Mouth, 2 times a day, PRN as needed for pain, with food Discontinue meloxicam, # 60 capsule, 2 Refills, Maintenance, 09/01/22 12:03:00 EST, [facility]/pharmacy #[id number], Partial fill upon patient request if the prescription is for a sche... Start Date: 09/01/22 Stop Date: 11/30/22 Status: Ordered cetirizine 10 mg oral tablet 1 tablet = 10 mg, By Mouth, Daily, In place of Loratadine label in argentine, # 30 tablet, 1 Refills,Maintenance, 11/10/22 11:58:00 EDT, Tablet, [facility]/pharmacy #1026, Partial fill upon patient request if the prescription is for a schedule II opioid lorene... Start Date: 11/10/22 Status: Ordered Cipro 500 mg oral tablet 1 tablet = 500 mg, By Mouth, Every 24 hours, for 30 days, # 30 tablet, 0 Refills, Acute 11/27/22 10:31:00 EDT, 10/28/22 10:31:00 EDT, Tablet, [facility]/pharmacy #[id number], ., 162.6, cm, 10/28/22 [...] 0 Refills, Maintenance, 04/29/22 15:30:00 EDT, Tablet, [facility]/pharmacy #[id number], Partial fill upon patient request if the prescription is for... Start Date: 04/29/22 Stop Date: 05/27/22 Status: Ordered emtricitabine-tenofovir disoproxil 200 mg-300 mg oral tablet 1 tablet, By Mouth, Daily, for post-exposure prophylaxis take with dolutegravir, # 28 tablet, 0 Refills, Maintenance, 04/29/22 15:30:00 EDT, [facility]/pharmacy #[id number], Partial fill upon patient [...] 16 mL, 5 Refills, Maintenance,07/07/22 19:25:00 EST, [id number], 30, SPRAY 2 SPRAYS INTO EACH NOSTRIL TODOS [place], 162.6,cm, 05/06/22 10:10:00 EDT, Height, 81.1, kg, 11/24/... Start Date: 07/07/22 Status: Ordered gabapentin 400 mg oral capsule See Instructions, TOME KARL CAPSULA POR VIA ORAL VICTORIA VECES AL DACIA, # 90 capsule, Refills 11, Tot. Refills 11, 11/06/19 14:40:00 EDT, Instructions Replace Required Details, Route to Pharmacy Electronically, [facility]/pharmacy #[id number], 162.56, cm, 10/18/19 10:4... Start Date: 11/06/19 Status: Ordered ketoconazole 2% topical cream 1 application, Topically, Daily, for 30 days, # 60 Gm, 1 Refills, Acute 12/27/22 10:57:00 EDT, 10/28/22 10:57:00 EDT, Cream, [facility]/pharmacy #1026, Partial fill upon patient request if the prescription is for a schedule II opioid drug., 1 application Top... Start Date: 10/28/22 Stop Date: 12/27/22 Status: Ordered lansoprazole 15 mg oral enteric coated capsule 1 capsule, By Mouth, Daily, INSTR:TAKE 30 MINUTES BEFORE BREAKFAST, # 30 capsule, 2 Refills, [facility]ORE [id number], 162.6, cm, 10/29/21 10:19:00 EDT, Height, 81.1, [...] Status: Ordered loratadine 10 mg oral tablet 10 mg, 1, tablet, By Mouth, Daily, PRN, # 30 tablet, Refills 11, Tot. Refills 11, Maintenance, as needed for allergy symptoms, 10/30/21 14:05:00 EDT, Route to Pharmacy Electronically, [facility]/pharmacy #1026, Partial fill upon patient request if the prescr... Start Date: 10/30/21 Status: Ordered metroNIDAZOLE 0.75% topical gel 1 application, Topically, 2 times a day, Apply a thin film to affected area after washing., # 45 Gm, 11 Refills, Maintenance, Rosacea, 07/28/22 15:02:00 EST, [id number], 1 application Topically 2 times a day,Instr:Apply a thin film to affected... Start Date: 07/28/22 Status: Ordered mometasone 0.1% topical cream 1 application, Topically, Daily, apply a thin film in affected area- chest, abdomen, back, # 90 Gm,1 Refills, Maintenance, 10/15/20 22:55:00 EST, Cream, [facility]/pharmacy #1026, 1 application Topically Daily,Instr:apply a thin film in affected area- del... Start Date: 10/15/20 Status: Ordered montelukast 10 mg oral tablet 10 mg, 1, tablet, By Mouth, Daily at bedtime, # 30 tablet, Refills 11, Tot. Refills 11, Maintenance, 10/30/21 14:05:00 EDT, Route to Pharmacy Electronically, [facility]/pharmacy #[id number], Partial fill upon patient request if the prescription is for a schedule I... Start Date: 10/30/21 Status: Ordered nitroglycerin 0.4 mg sublingual tablet 1 tablet = 0.4 mg, Sublingual, Every 5 minutes, PRN Chest Pain, (not to exceed 3 doses/15 min--if pain persists, seek medical attention), # 25 tablet, 3 Refills, Maintenance, 11/09/21 16:07:00 EDT, Tablet, [facility]/pharmacy #1026, Partial fill upon patient... Start Date: 11/09/21 Status: Ordered olopatadine 0.1% ophthalmic solution 1 drops, Eyes, Both, 2 times a day, PRN eye allergies, # 5 mL, 11 Refills, Maintenance, 10/28/22 10:43:00 EDT, Ophth Solution, [facility]/pharmacy #1026, ., 1 drops Eyes, [...] Every 4 hours, PRN Cough, label in argentine, # 180 mL, 1 Refills, Maintenance, 11/10/22 11:58:00 EDT, [facility]/pharmacy #1026, Partial fill upon patient [...] times a day, Take before meal ; argentine, # 120 tablet, 11 Refills, Maintenance, 06/01/21 13:40:00 EDT, [facility]/pharmacy #1026, 162.6, cm, 05/28/21 11:04:00 EDT, Height, 81.1, kg, 11/24/20 11:26:00 EDT, Dry Weight Start Date: 06/01/21 Status: Ordered tamsulosin 0.4 mg oral capsule 0.4 mg, 1, capsule, By Mouth, Daily, # 30 capsule, Refills 5, Tot. Refills 5, Maintenance, 219:31:00 EDT, Route to Pharmacy Electronically, [facility]/pharmacy #1026, 162.6, cm, 11/24/20 11:22:00 [...] of left hip joint Confirmed Active [facility] Care Management Program Carbon Electrodes Supervisor Fransisco Nettless [phone] Confirmed Active 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 11 Confirmed Active Rosacea, acne Confirmed Active Chronic pain of both shoulders Confirmed Active Positive serology for syphilis Confirmed Active Tear of meniscus of left knee 12 Confirmed 12/2015 Active Tension headache Confirmed 11/15/08 Active 1diagnosed at [facility] 2correction date food esophagus impactation is [...] Team Personnel Name: Daron Allen RN Position: [facility] RN Member Role: Primary Care Nurse Name: Zhang Benitez MD Position: [facility] Primary Care Physician Member Role: PCP Address: Address: [address] [place] [address]- Care Team Related Persons Name: DOMINGO ELIAS Name: BRANDY ROBERSON Address: [place] [address] Name: STATES, NO ONE
--- OUTSIDE RECORDS SUMMARY | 2023-05-24 11:02 | XMS_ITS | Continuity of Care Document ---
Author Name Unknown Organization [facility] Address [address] [place] [address]- Care Team Providers Care Licensed Home Inspector Name Role Phone Zhang Benitez MD Primary Care Physician Encounter [facility] [place] Date(s): 11/12/22 - 12/12/22 [facility] [address]- [place] Allergies, Adverse Reactions, Alerts Substance Reaction Severity Status penicillin Active Immunizations Given and Recorded Vaccine Date Status Refusal Reason influenza virus vaccine, inactivated 07/13/22 Give n influenza virus vaccine, inactivated 04/23/21 Anival rded influenza virus vaccine, inactivated 05/17/18 Give n influenza virus vaccine, inactivated 06/30/16 Give n [id number] bivalent booster vax 07/09/22 Recorded SARS-CoV-2 (COVID-19) [...] 11 Refills, Maintenance, 05/28/21 12:56:00 EDT, [facility]/pharmacy #[id number], 1 applicator Topically 2 times [...] 1 Refills, Maintenance, 11/04/21 1:02:00 EDT, [facility]/pharmacy #1026, 162.6, cm, 10/29/21 10:19:00 EDT, Height, 81.1, kg, 11/24/2110:26:00 EDT, Dry Weight Start Date: 11/04/21 Stop Date: 01/03/22 Status: Ordered celecoxib 200 mg oral capsule 1 capsule, By Mouth, 2 times a day, PRN NEEDED FOR PAIN WITH FOOD DISCONTINUE MELOXICAM, # 60 capsule, 0 Refills, Maintenance, 12/12/22 21:40:00 EDT, [facility], 162.6, cm, 11/19/22 11:04:00 EDT, Height Start Date: 12/12/22 Status: Ordered cetirizine 10 mg oral tablet 1 tablet = 10 mg, By Mouth, Daily, In place of Loratadine label in zimbabwean, # 30 tablet, 1 Refills,Maintenance, 11/10/22 11:58:00 EDT, Tablet, [facility]/pharmacy #1026, Partial fill upon patient request [...] Refills, Maintenance, 04/29/22 15:30:00 EDT, Tablet, [facility]/pharmacy #1026, Partial fill upon patient request if the prescription is for... Start Date: 04/29/22 Stop Date: 05/27/22 Status: Ordered emtricitabine-tenofovir disoproxil 200 mg-300 mg oral tablet 1 tablet, By Mouth, Daily, for post-exposure prophylaxis take with dolutegravir, # 28 tablet, 0 Refills, Maintenance, 04/29/22 15:30:00 EDT, [facility]/pharmacy #1026, Partial fill upon patient request [...] 16 mL, 5 Refills, Maintenance,07/07/22 19:25:00 EST, [facility], 30, SPRAY 2 SPRAYS INTO EACH NOSTRIL TODOS [place], 162.6,cm, 05/06/22 10:10:00 EDT, Height, 81.1, kg, ... Start Date: 07/07/22 Status: Ordered gabapentin 400 mg oral capsule See Instructions, TOME KARL CAPSULA POR VIA ORAL VICTORIA VECES AL DACIA, # 90 capsule, Refills 11, Tot. Refills 11, 11/06/19 14:40:00 EDT, Instructions Replace Required Details, Route to Pharmacy Electronically, [facility]/pharmacy #1026, 162.56, cm, 10/18/19 10:4... Start Date: 11/06/19 Status: Ordered ketoconazole 2% topical cream 1 application, Topically, Daily, for 30 days, # 60 Gm, 1 Refills, Acute 12/27/22 10:57:00 EDT, 10/28/22 10:57:00 EDT, Cream, [facility]/pharmacy #1026, Partial fill upon patient request if the prescription is for a schedule II opioid drug., 1 application Top... Start Date: 10/28/22 Stop Date: 12/27/22 Status: Ordered lansoprazole 15 mg oral enteric coated capsule See Instructions, TOME 1 CAPSULA POR VIA ORAL TODOS [place] TAKE 30 MINS BEFORE BREAKFAST, # 30 capsule, 2 Refills, Maintenance, 11/23/22 7:43:00 EDT, [id number], 162.6, cm, 11/19/22 11:04:00 EDT, Height, 81.1, [...] Replace Required Details, Route to Pharmacy Electronically, [id number],... Start Date: 11/13/22 Status: Ordered metroNIDAZOLE 0.75% topical gel 1 application, Topically, 2 times a day, Apply a thin film to affected area after washing., # 45 Gm, 11 Refills, Maintenance, Rosacea, 07/28/22 15:02:00 EST, [facility]/pharmacy #1026, 1 application Topically 2 times [...] 14:05:00 EDT, Route to Pharmacy Electronically, [facility]/pharmacy #1026, Partial fill upon patient request if the prescription is for a schedule I... Start Date: 10/30/21 Status: Ordered nitroglycerin 0.4 mg sublingual tablet 1 tablet = 0.4 mg, Sublingual, Every 5 minutes, PRN Chest Pain, (not to exceed 3 doses/15 min--if pain persists, seek medical attention), # 25 tablet, 3 Refills, Maintenance, 11/09/21 16:07:00 EDT, Tablet, [facility]/pharmacy #1026, Partial fill upon patient... Start Date: 11/09/21 Status: Ordered olopatadine 0.1% ophthalmic solution 1 drops, Eyes, Both, 2 times a day, PRN eye allergies, # 5 mL, 11 Refills, Maintenance, 10/28/22 10:43:00 EDT, Ophth Solution, [facility]/pharmacy #1026, ., 1 drops Eyes, Both [...] Every 4 hours, PRN Cough, label in zimbabwean, # 180 mL, 1 Refills, Maintenance, 12/01/22 17:23:00 EDT, [facility], Partial fill [...] times a day, Take before meal ; zimbabwean, # 120 tablet, 11 Refills, Maintenance, 06/01/21 13:40:00 EDT, [facility]/pharmacy #1026, 162.6, cm, 05/28/21 11:04:00 EDT, Height, 81.1, kg, 11/24/20 11:26:00 EDT, Dry Weight Start Date: 06/01/21 Status: Ordered tamsulosin 0.4 mg oral capsule 0.4 mg, 1, capsule, By Mouth, Daily, # 30 capsule, Refills 5, Tot. Refills 5, Maintenance, :31:00 EDT, Route to Pharmacy Electronically, [facility]/pharmacy #1026, 162.6, cm, 11/24/20 11:22:00 EDT, Height, 81.1, kg, 11/24/20 11:26:00 EDT, Dry Weight Start Date: 12/05/20 Status: Ordered Vitamin D3 1000 intl units oral tablet 1 tablet = 25 mcg, By Mouth, Daily, for 30 days, # 30 tablet, 11 Refills, Physician Stop 07/07/23 16:35:00 EST, 07/12/22 16:35:00 EST, [facility]/pharmacy #1026, 162.6, cm, 05/06/22 10:10:00 EDT, Height, 81.1, kg, 11/24/20 11:26:00 EDT, Dry Weight Start Date: 07/12/22 Stop Date: 07/07/23 Status: Ordered zolpidem 10 mg oral tablet 1 tablet = 10 mg, By Mouth, Daily at bedtime, given by psych, Lorie Castano CNC LASER OPERATOR, 0 Refills, Maintenance, 06/19/15 14:48:48 Start Date: [...] of left hip joint Confirmed Active [facility] Care Management Program Manager Sales Fransisco Chacon [phone] Confirmed Active 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 11 Confirmed Active Rosacea, acne Confirmed Active Chronic pain of both shoulders Confirmed Active Positive serology for syphilis Confirmed Active Tear of meniscus of left knee 12 Confirmed 12/2015 Active Tension headache Confirmed 11/15/08 Active 1diagnosed at [facility] 2correction date food esophagus impactation is [...] more than 30 days ago entered on: 8/22/22 Sex Patient Care team information Care Team Personnel Name: Daron Allen RN Position: [facility] RN Member Role: Primary Care Nurse Name: Zhang Benitez MD Position: [facility] Primary Care Physician Member Role: PCP Address: Address: [address] [place] [address] Care Team Related Persons Name: DOMINGO ELIAS Name: BRANDY ROBERSON Address: [address] [address] Name: STATES, NO ONE
--- OUTSIDE RECORDS SUMMARY | 2023-05-24 11:02 | XMS_ITS | Continuity of Care Document ---
Author Name Unknown Organization [facility] Address [address] [place] [address]- Care Team Providers Care Automotive Drivability Technician Name Role Phone Emmanuel CARRILLO, Zhang Primary Care Physician Encounter [facility] [place] Date(s): 11/12/22 - 12/15/22 [facility] [address]- Attending Physician: Skye Paz MD Admitting Physician: Skye Paz MD Allergies, Adverse Reactions, Alerts Substance Reaction Severity Status penicillin Active Immunizations Given and Recorded Vaccine Date Status Refusal Reason influenza virus vaccine, inactivated 07/13/22 Give n influenza virus vaccine, inactivated 04/23/21 Anival rded influenza virus vaccine, inactivated 05/17/18 Give n influenza virus vaccine, inactivated 06/30/16 Give n [id number] bivalent booster vax 07/09/22 Recorded SARS-CoV-2 (COVID-19) [...] adult vaccine 7 09/14/06 Given 1Result Comment: [facility] AVLisa 2Admin Note: ADACEL VIS 06/25/08 GIVEN 3Admin Note: VIS 02/22/07 GIVEN 4Admin Note: VIS 02/22/07 given 5Admin Note: Hep B # 3 VIS 02/15/01 6Admin Note: HEP B # 2 VIS 02/15/2001 7Admin Note: VIS 02/05 HEP B #1 Medications ammonium lactate 12% topical cream 1 applicator, Topically, 2 times a day, # 280 Gm, 11 Refills, Maintenance, 05/28/21 12:56:00 EDT, [facility]/pharmacy #[id number], 1 applicator Topically 2 times [...] tablet, 1 Refills, Maintenance, 11/04/21 1:02:00 EDT, [facility]/pharmacy #[id number], 162.6, cm, 10/29/21 10:19:00 EDT, Height, 81.1, kg, 11/24/2110:26:00 EDT, Dry Weight Start Date: 11/04/21 Stop Date: 01/03/22 Status: Ordered celecoxib 200 mg oral capsule 1 capsule, By Mouth, 2 times a day, PRN NEEDED FOR PAIN WITH FOOD DISCONTINUE MELOXICAM, # 60 capsule, 0 Refills, Maintenance, 12/12/22 21:40:00 EDT, [id number], 162.6, cm, 11/19/22 11:04:00 EDT, Height Start Date: 12/12/22 Status: Ordered cetirizine 10 mg oral tablet 1 tablet = 10 mg, By Mouth, Daily, In place of Loratadine label in togolese, # 30 tablet, 1 Refills,Maintenance, 11/10/22 11:58:00 EDT, Tablet, [facility]/pharmacy #[id number], Partial fill upon patient request [...] 0 Refills, Maintenance, 04/29/22 15:30:00 EDT, Tablet, [facility], Partial fill upon patient request if the prescription is for... Start Date: 04/29/22 Stop Date: 05/27/22 Status: Ordered emtricitabine-tenofovir disoproxil 200 mg-300 mg oral tablet 1 tablet, By Mouth, Daily, for post-exposure prophylaxis take with dolutegravir, # 28 tablet, 0 Refills, Maintenance, 04/29/22 15:30:00 EDT, [facility]/pharmacy #[id number], Partial fill upon patient request [...] 5 Refills, Maintenance,07/07/22 19:25:00 EST, [id number], 30, SPRAY 2 SPRAYS INTO EACH NOSTRIL TODOS [place], 162.6,cm, 05/06/22 10:10:00 EDT, Height, 81.1, kg, 11/24/... Start Date: 07/07/22 Status: Ordered gabapentin 400 mg oral capsule See Instructions, TOME KARL CAPSULA POR VIA ORAL VICTORIA VECES AL DACIA, # 90 capsule, Refills 11, Tot. Refills 11, 11/06/19 14:40:00 EDT, Instructions Replace Required Details, Route to Pharmacy Electronically, [facility]/pharmacy #[id number], 162.56, cm, 10/18/19 10:4... Start Date: 11/06/19 Status: Ordered ketoconazole 2% topical cream 1 application, Topically, Daily, for 30 days, # 60 Gm, 1 Refills, Acute 12/27/22 10:57:00 EDT, 10/28/22 10:57:00 EDT, Cream, [facility]/pharmacy #1026, Partial fill upon patient request if the prescription is for a schedule II opioid drug., 1 application Top... Start Date: 10/28/22 Stop Date: 12/27/22 Status: Ordered lansoprazole 15 mg oral enteric coated capsule See Instructions, TOME 1 CAPSULA POR VIA ORAL TODOS [place] TAKE 30 MINS BEFORE BREAKFAST, # 30 capsule, 2 Refills, Maintenance, 11/23/22 7:43:00 EDT, [id number], 162.6, cm, 11/19/22 11:04:00 EDT, Height, 81.1, [...] Replace Required Details, Route to Pharmacy Electronically, [id number],... Start Date: 11/13/22 Status: Ordered metroNIDAZOLE 0.75% topical gel 1 application, Topically, 2 times a day, Apply a thin film to affected area after washing., # 45 Gm, 11 Refills, Maintenance, Rosacea, 07/28/22 15:02:00 EST, [facility]/pharmacy #1026, 1 application Topically 2 times a day,Instr:Apply a thin film to affected... Start Date: 07/28/22 Status: Ordered mometasone 0.1% topical cream 1 application, Topically, Daily, apply a thin film in affected area- chest, abdomen, back, # 90 Gm,1 Refills, Maintenance, 10/15/20 22:55:00 EST, Cream, [facility]/pharmacy #1026, 1 application Topically Daily,Instr:apply a thin film in affected area- del... Start Date: 10/15/20 Status: Ordered montelukast 10 mg oral tablet 10 mg, 1, tablet, By Mouth, Daily at bedtime, # 30 tablet, Refills 11, Tot. Refills 11, Maintenance, 10/30/21 14:05:00 EDT, [facility] Partial fill upon patient request if the prescription is for a schedule I... Start Date: 10/30/21 Status: Ordered nitroglycerin 0.4 mg sublingual tablet 1 tablet = 0.4 mg, Sublingual, Every 5 minutes, PRN Chest Pain, (not to exceed 3 doses/15 min--if pain persists, seek medical attention), # 25 tablet, 3 Refills, Maintenance, 11/09/21 16:07:00 EDT, [facility] Partial fill upon patient... Start Date: 11/09/21 Status: Ordered olopatadine 0.1% ophthalmic solution 1 drops, Eyes, Both, 2 times a day, PRN eye allergies, # 5 mL, 11 Refills, Maintenance, 10/28/22 10:43:00 EDT, Ophth Solution, [facility] ., 1 drops Eyes, Both 2 [...] Every 4 hours, PRN Cough, label in togolese, # 180 mL, 1 Refills, Maintenance, 12/01/22 17:23:00 EDT, [facility], Partial fill upon patient request if [...] times a day, Take before meal ; togolese, # 120 tablet, 11 Refills, Maintenance, 06/01/21 13:40:00 EDT, [facility]/pharmacy #1026, 162.6, cm, 05/28/21 11:04:00 EDT, Height, 81.1, kg, 11/24/20 11:26:00 EDT, Dry Weight Start Date: 06/01/21 Status: Ordered tamsulosin 0.4 mg oral capsule 0.4 mg, 1, capsule, By Mouth, Daily, # 30 capsule, Refills 5, Tot. Refills 5, Maintenance, :31:00 EDT, Route to Pharmacy Electronically, [facility]/pharmacy #1026, 162.6, cm, 11/24/20 11:22:00 EDT, [...] at bedtime, given by psych, Lorie Castano SENIOR EXECUTIVE COMPENSATION ANALYST, 0 Refills, Maintenance, 06/19/15 14:48:48 Start Date: [...] of left hip joint Confirmed Active [facility]CP [facility] Care Management Program Tours Hostess Fransisco Chacon [phone] Confirmed Active 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 11 Confirmed Active Rosacea, acne Confirmed Active Chronic pain of both shoulders Confirmed Active Positive serology for syphilis Confirmed Active Tear of meniscus of left knee 12 Confirmed 12/2015 Active Tension headache Confirmed 11/15/08 Active 1diagnosed at [facility] 2correction date food esophagus impactation is [...] Team Personnel Name: Daron Allen RN Position: [facility] RN Member Role: Primary Care Nurse Name: Emmanuel CARRILLO, Zhang Position: [facility] Primary Care Physician Member Role: PCP Address: Address: [address] [place] [address]- Care Team Related Persons Name: DOMINGO ELIAS Name: BRANDY ROBERSON Address: [place] [address] Name: PT STATES, NO ONE
--- OUTSIDE RECORDS SUMMARY | 2023-05-24 11:02 | XMS_ITS | Continuity of Care Document ---
Author Name Unknown Organization [facility] Address [address] [place] [address]- Care Team Providers Care Learning Program Manager Name Role Phone Zhang Benitez MD Primary Care Physician Encounter [facility] [place] Date(s): 12/21/22 - 01/20/23 [facility]/[place] [address]- [place] Allergies, Adverse Reactions, Alerts Substance Reaction Severity Status penicillin Active Immunizations Given and Recorded Vaccine Date Status Refusal Reason influenza virus vaccine, inactivated 07/13/22 Give n influenza virus vaccine, inactivated 04/23/21 Anival rded influenza virus vaccine, inactivated 05/17/18 Give n influenza virus vaccine, inactivated 06/30/16 Give n [id number] bivalent booster vax 07/09/22 Recorded SARS-CoV-2 (COVID-19) [...] Maintenance, 05/28/21 12:56:00 EDT, [facility]/pharmacy #1026, 1 applicator Topically 2 times [...] Maintenance, 11/04/21 1:02:00 EDT, [facility]/pharmacy #1026, 162.6, cm, 10/29/21 10:19:00 EDT, Height, 81.1, kg, 11/24/2110:26:00 EDT, Dry Weight Start Date: 11/04/21 Stop Date: 01/03/22 Status: Ordered celecoxib 200 mg oral capsule 1 capsule, By Mouth, 2 times a day, PRN NEEDED FOR PAIN WITH FOOD DISCONTINUE MELOXICAM, # 60 capsule, 0 Refills, Maintenance, 12/12/22 21:40:00 EDT, [id number], 162.6, cm, 11/19/22 11:04:00 EDT, Height Start Date: 12/12/22 Status: Ordered cetirizine 10 mg oral tablet 1 tablet = 10 mg, By Mouth, Daily, In place of Loratadine label in chinese, # 30 tablet, 1 Refills,Maintenance, 11/10/22 11:58:00 EDT, Tablet, [facility]/pharmacy #1026, Partial fill upon patient request [...] 04/29/22 15:30:00 EDT, Tablet, [facility]/pharmacy #1026, Partial fill upon patient request if the prescription is for... Start Date: 04/29/22 Stop Date: 05/27/22 Status: Ordered emtricitabine-tenofovir disoproxil 200 mg-300 mg oral tablet 1 tablet, By Mouth, Daily, for post-exposure prophylaxis take with dolutegravir, # 28 tablet, 0 Refills, Maintenance, 04/29/22 15:30:00 EDT, [facility]/pharmacy #1026, Partial fill upon patient request [...] 11 Refills, Maintenance, 01/12/23 17:33:00 EDT, [facility]/pharmacy #1026, 30, SPRAY 2 SPRAYS INTO EACH NOSTRIL TODOS [place], 162.6, cm, 01/12/23 14:53:00 EDT, Height Start Date: 01/12/23 Status: Ordered gabapentin 400 mg oral capsule See Instructions, TOME KARL CAPSULA POR VIA ORAL VICTORIA VECES AL DACIA, # 90 capsule, Refills 11, Tot. Refills 11, 11/06/19 14:40:00 EDT, Instructions Replace Required Details, Route to Pharmacy Electronically, [facility]/pharmacy #1026, 162.56, cm, 10/18/19 10:4... Start Date: 11/06/19 Status: Ordered lansoprazole 15 mg oral enteric coated capsule See Instructions, TOME 1 CAPSULA POR VIA ORAL TODOS [place] TAKE 30 MINS BEFORE BREAKFAST, # 30 capsule, 2 Refills, Maintenance, 11/23/22 7:43:00 EDT, [id number], 162.6, cm, 11/19/22 11:04:00 EDT, Height, 81.1, [...] Route to Pharmacy Electronically, [id number],... Start Date: 11/13/22 Status: Ordered metroNIDAZOLE 0.75% topical gel 1 application, Topically, 2 times a day, Apply a thin film to affected area after washing., # 45 Gm, 11 Refills, Maintenance, Rosacea, 01/12/23 17:32:00 EDT, [facility]/pharmacy #1026, 1 application Topically 2 times a day,Instr:Apply a thin film to affected... Start Date: 01/12/23 Status: Ordered mometasone 0.1% topical cream 1 application, Topically, Daily, apply a thin film in affected area- chest, abdomen, back, # 90 Gm,1 Refills, Maintenance, 10/15/20 22:55:00 EST, Cream, [facility]/pharmacy #1026, 1 application Topically Daily,Instr:apply a thin film in affected area- del... Start Date: 10/15/20 Status: Ordered montelukast 10 mg oral tablet 10 mg, 1, tablet, By Mouth, Daily at bedtime, # 30 tablet, Refills 11, Tot. Refills 11, Maintenance, 10/30/21 14:05:00 EDT, Route to Pharmacy Electronically, [facility]/pharmacy #1026, Partial fill upon patient request if the prescription is for a schedule I... Start Date: 10/30/21 Status: Ordered nitroglycerin 0.4 mg sublingual tablet 1 tablet = 0.4 mg, Sublingual, Every 5 minutes, PRN Chest Pain, (not to exceed 3 doses/15 min--if pain persists, seek medical attention), # 25 tablet, 3 Refills, Maintenance, 11/09/21 16:07:00 EDT, Tablet, [facility]/pharmacy #1026, Partial fill upon patient... Start Date: 11/09/21 Status: Ordered olopatadine 0.1% ophthalmic solution 1 drops, Eyes, Both, 2 times a day, PRN eye allergies, # 5 mL, 11 Refills, Maintenance, 10/28/22 10:43:00 EDT, Ophth Solution, [facility]/pharmacy #1026, ., 1 drops Eyes, Both [...] Every 4 hours, PRN Cough, label in chinese, # 180 mL, 1 Refills, Maintenance, 12/01/22 17:23:00 EDT, [facility], Partial fill upon patient request if [...] times a day, Take before meal ; chinese, # 120 tablet, 11 Refills, Maintenance, 06/01/21 13:40:00 EDT, [facility]/pharmacy #1026, 162.6, cm, 05/28/21 11:04:00 EDT, Height, 81.1, kg, 11/24/20 11:26:00 EDT, Dry Weight Start Date: 06/01/21 Status: Ordered tamsulosin 0.4 mg oral capsule 0.4 mg, 1, capsule, By Mouth, Daily, # 30 capsule, Refills 5, Tot. Refills 5, Maintenance, 219:31:00 EDT, Route to Pharmacy Electronically, [facility]/pharmacy #1026, 162.6, cm, 11/24/20 11:22:00 EDT, Height, 81.1, kg, 11/24/20 11:26:00 EDT, Dry Weight Start Date: 12/05/20 Status: Ordered Vitamin D3 1000 intl units oral tablet 1 tablet = 25 mcg, By Mouth, Daily, for 30 days, # 30 tablet, 11 Refills, Physician Stop 07/07/23 16:35:00 EST, 07/12/22 16:35:00 EST, [facility]/pharmacy #1026, 162.6, cm, 05/06/22 10:10:00 EDT, Height, 81.1, kg, 11/24/20 11:26:00 EDT, Dry Weight Start Date: 07/12/22 Stop Date: 07/07/23 Status: Ordered zolpidem 10 mg oral tablet 1 tablet = 10 mg, By Mouth, Daily at bedtime, given by psych, Lorie Castano COW TRIMMER, 0 Refills, Maintenance, 06/19/15 14:48:48 Start Date: [...] of left hip joint Confirmed Active [facility]CP [facility] Care Management Program Motor Setter Fransisco Chacon [phone] Confirmed Active 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 11 Confirmed Active Rosacea, acne Confirmed Active Chronic pain of both shoulders Confirmed Active Positive serology for syphilis Confirmed Active Tear of meniscus of left knee 12 Confirmed 12/2015 Active Tension headache Confirmed 11/15/08 Active 1diagnosed at [facility] 2correction date food esophagus impactation is [...] Care Nurse Name: Zhang Benitez MD Position: [facility] Physician - Primary Care Member Role: PCP Address: Address: [address] [place] [id number]- Care Team Related Persons Name: DOMINGO ELIAS Name: BRANDY ROBERSON Address: home [address] [place] [address] Name: PT STATES, NO ONE
--- OUTSIDE RECORDS SUMMARY | 2023-05-24 11:02 | XMS_ITS | Continuity of Care Document ---
Author Name Unknown Organization [facility] Address [address] [place] [address]- Care Team Providers Care Pruner Name Role Phone Emmanuel CARRILLO, Zhang Primary Care Physician Encounter [facility] [place] Date(s): 03/31/23 - 04/30/23 [facility]/[place] [address]- [place] Allergies, Adverse Reactions, Alerts Substance Reaction Severity Status penicillin Active Immunizations Given and Recorded Vaccine Date Status Refusal Reason influenza virus vaccine, inactivated 07/13/22 Give n influenza virus vaccine, inactivated 04/23/21 Anival rded influenza virus vaccine, inactivated 05/17/18 Give n influenza virus vaccine, inactivated 06/30/16 Give n [id number] bivalent booster vax 07/09/22 Recorded SARS-CoV-2 (COVID-19) [...] (oldterm) 05/17/19 Recorde d tetanus/diphtheria/pertussis, acel(Tdap) 2 1/27/10 Given hepatitis B adult vaccine 3 09/03/09 Given hepatitis B adult vaccine 4 06/05/08 Given hepatitis B adult vaccine 5 03/13/07 Given hepatitis B adult vaccine 6 10/10/06 Given hepatitis B adult vaccine 7 09/14/06 Given 1Result Comment: [facility] 2Admin Note: ADACEL VIS [...] Refills, Maintenance, 04/13/23 12:35:00 EDT, Tablet, [facility]/pharmacy #1026, Partial fill upon patient [...] Refills, Maintenance, 04/07/23 15:40:00 EDT, Gel, [facility]/pharmacy #1026, ., 162.6, cm, 04/07/23 9:53:00 EDT, [...] 11 Refills, Maintenance, 01/12/23 17:33:00 EDT, [facility]/pharmacy #1026, 30, SPRAY 2 SPRAYS INTO EACH NOSTRIL TODOS [place], 162.6, cm, 01/12/23 14:53:00 EDT, Height Start Date: 01/12/23 Status: Ordered gabapentin 300 mg oral capsule 300 mg, 1, capsule, By Mouth, Daily, PRN, # 30 capsule, Refills 5, Tot. Refills 5, Maintenance, Pain , Moderate, 04/07/23 17:49:00 EDT, Route to Pharmacy Electronically, [facility]/pharmacy #1026, 162.6, cm, 04/07/23 9:53:00 EDT, Height Start Date: 04/07/23 Status: Ordered hydrocortisone 1% topical cream 1 application, Topically, 2 times a day, EYE LIDS AVOID GETTING IN EYES LABEL IN [place], # 30 Gm, 0 Refills, Maintenance, 03/18/23 13:43:00 EDT, Cream, [facility]/pharmacy #1026, Partial fill upon patient request if the prescription is for a schedule II o... Start Date: 03/18/23 Status: Ordered lansoprazole 15 mg oral enteric coated capsule See Instructions, TOME 1 CAPSULA POR VIA ORAL TODOS [place] TAKE 30 MINS BEFORE BREAKFAST, # 90 capsule, 0 Refills, Maintenance, 02/21/23 15:11:00 EDT, [id number], 162.6, cm, 01/12/23 14:53:00 EDT, Height Start Date: 02/21/23 Status: Ordered loratadine 10 mg oral tablet See Instructions, TOME KARL TABLETA POR VIA ORAL TODOS [place] COLON CUANDO SEA NECESARIO ALLERGY SYMPTOMS, # 30 tablet, Refills 5, Maintenance, 11/13/22 16:18:00 EDT, Instructions Replace Required Details, Route to Pharmacy Electronically, [id number],... Start Date: 11/13/22 Status: Ordered metroNIDAZOLE 0.75% topical gel 1 application, Topically, 2 times a day, Apply a thin film to affected area after washing., # 45 Gm, 11 Refills, Maintenance, Rosacea, 01/12/23 17:32:00 EDT, [facility]/pharmacy #1026, 1 application Topically 2 times a day,Instr:Apply a thin film to affected... Start Date: 01/12/23 Status: Ordered naphazoline 0.012% ophthalmic solution 1-2 drops, Eyes, Both, 4 times a day, PRN Red eyes, Getting tyvr-drj-sguapva???name: Clear eyes, # 15 mL, 0 Refills, Maintenance, 03/31/23 13:56:00 EDT, . Start Date: 03/31/23 Status: Ordered nortriptyline 10 mg oral capsule 10 mg, 1, capsule, By Mouth, Daily at bedtime, # 30 capsule, Refills 2, Tot. Refills 2, Maintenance, 04/07/23 11:01:00 EDT, Route to Pharmacy Electronically, [facility]/pharmacy #1026, Partial fill upon patient [...] Every 4 hours, PRN Cough, label in turkmen, # 180 mL, 1 Refills, Maintenance, 12/01/22 17:23:00 EDT, [facility], Partial fill [...] 07/07/23 16:35:00 EST, 07/12/22 16:35:00 EST, [facility]/pharmacy #1026, 162.6, cm, 05/06/22 10:10:00 [...] left hip joint Confirmed Active [facility] Care Management Program Keg Varnisher Fransisco Chacon [phone] Confirmed Active 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 11 Confirmed Active Rosacea, acne Confirmed Active Chronic pain of both shoulders Confirmed Active Tear of meniscus of left knee 12 Confirmed 12/2015 Active Tension headache Confirmed 11/15/08 Active 1diagnosed at [facility] 2correction date food esophagus impactation is 06/30/12 [...] Team Personnel Name: Daron Allen RN Position: [facility] RN Member Role: Primary Care Nurse Name: Zhang Benitez MD Position: [facility] Physician - Primary Care Member Role: PCP Address: Address: [address] [place] [address]- Care Team Related Persons Name: DOMINGO ELIAS Name: BRANDY ROBERSON Address: [address] [address] Name: PT STATES, NO ONE
--- OUTSIDE RECORDS SUMMARY | 2023-05-24 11:02 | XMS_ITS | Continuity of Care Document ---
Author Name Unknown Organization [facility] Address [address] [place] [address]- Care Team Providers Care Marble Cleaner Name Role Phone Emmanuel CARRILLO, Zhang [id number]23 - 03/16/23 [facility] [address] [place] [address]- Encounter Diagnosis Pharyngitis(Discharge Diagnosis) - 03/09/23 Nasal pain(Discharge Diagnosis) - 03/09/23 Attending Physician: Melony Thomson MD Referring Physician: Zhang Benitez MD Allergies, Adverse Reactions, Alerts Substance Reaction Severity Status penicillin Active Immunizations Given and Recorded Vaccine Date Status Refusal Reason influenza virus vaccine, inactivated 07/13/22 Give n influenza virus vaccine, inactivated 04/23/21 Anival rded influenza virus vaccine, inactivated 05/17/18 Give n influenza virus vaccine, inactivated 06/30/16 Give n [id number] bivalent booster vax 07/09/22 Recorded SARS-CoV-2 (COVID-19) [...] adult vaccine 7 09/14/06 Given 1Result Comment: [facility] 2Admin Note: ADACEL VIS 06/25/08 GIVEN 3Admin Note: VIS 02/22/07 GIVEN 4Admin Note: VIS 02/22/07 given 5Admin Note: Hep B # 3 VIS 02/15/01 6Admin Note: HEP B # 2 VIS 02/15/2001 7Admin Note: VIS 02/05 HEP B #1 Medications ammonium lactate 12% topical cream 1 applicator, Topically, 2 times a day, # 280 Gm, 11 Refills, Maintenance, 05/28/21 12:56:00 EDT, [facility]/pharmacy #[id number], 1 applicator Topically 2 times a [...] tablet, 1 Refills, Maintenance, 11/04/21 1:02:00 EDT, [facility]/pharmacy #[id number], 162.6, cm, 10/29/21 10:19:00 EDT, Height, 81.1, kg, 11/24/2110:26:00 EDT, Dry Weight Start Date: 11/04/21 Stop Date: 01/03/22 Status: Ordered celecoxib 200 mg oral capsule 1 capsule, By Mouth, 2 times a day, PRN NEEDED FOR PAIN WITH FOOD DISCONTINUE MELOXICAM, # 60 capsule, 0 Refills, Maintenance, 02/16/23 15:28:00 EDT, [id number], 162.6, cm, 01/12/23 14:53:00 EDT, Height Start Date: 02/16/23 Status: Ordered cetirizine 10 mg oral tablet 1 tablet = 10 mg, By Mouth, Daily, In place of Loratadine label in [place], # 30 tablet, 1 Refills,Maintenance, 11/10/22 11:58:00 EDT, Tablet, [id number], Partial fill upon [...] tablet, 0 Refills, Maintenance, 04/29/22 15:30:00 EDT, [facility]/pharmacy #[id number], Partial fill upon patient request if [...] mL, 11 Refills, Maintenance, 01/12/23 17:33:00 EDT, [facility]/pharmacy #[id number], 30, SPRAY 2 SPRAYS INTO EACH NOSTRIL TODOS [place], 162.6, cm, 01/12/23 14:53:00 EDT, Height Start Date: 01/12/23 Status: Ordered gabapentin 400 mg oral capsule See Instructions, TOME KARL CAPSULA POR VIA ORAL VICTORIA VECES AL DACIA, # 90 capsule, Refills 11, Tot. Refills 11, 11/06/19 14:40:00 EDT, Instructions Replace Required Details, Route to Pharmacy Electronically, [facility]/pharmacy #[id number], 162.56, cm, 10/18/19 10:4... Start Date: 11/06/19 Status: Ordered lansoprazole 15 mg oral enteric coated capsule See Instructions, TOME 1 CAPSULA POR VIA ORAL TODOS [place] TAKE 30 MINS BEFORE BREAKFAST, # 90 capsule, 0 Refills, Maintenance, 02/21/23 15:11:00 EDT, [id number], 162.6, cm, 01/12/23 14:53:00 EDT, Height Start [...] Replace Required Details, Route to Pharmacy Electronically, [id number],... Start Date: 11/13/22 Status: Ordered metroNIDAZOLE 0.75% topical gel 1 application, Topically, 2 times a day, Apply a thin film to affected area after washing., # 45 Gm, 11 Refills, Maintenance, Rosacea, 01/12/23 17:32:00 EDT, [facility]/pharmacy #[id number], 1 application Topically 2 times a day,Instr:Apply a thin film to affected... Start Date: 01/12/23 Status: Ordered mometasone 0.1% topical cream 1 application, Topically, Daily, apply a thin film in affected area- chest, abdomen, back, # 90 Gm,1 Refills, Maintenance, 10/15/20 22:55:00 EST, Cream, [facility]/pharmacy #[id number], 1 application Topically Daily,Instr:apply a thin film in affected area- del... Start Date: 10/15/20 Status: Ordered montelukast 10 mg oral tablet 10 mg, 1, tablet, By Mouth, Daily at bedtime, # 30 tablet, Refills 11, Tot. Refills 11, Maintenance, 10/30/21 14:05:00 EDT, Route to Pharmacy Electronically, [facility]/pharmacy #[id number], Partial fill upon patient request if the prescription is for a schedule I... Start Date: 10/30/21 Status: Ordered nitroglycerin 0.4 mg sublingual tablet 1 tablet = 0.4 mg, Sublingual, Every 5 minutes, PRN Chest Pain, (not to exceed 3 doses/15 min--if pain persists, seek medical attention), # 25 tablet, 3 Refills, Maintenance, 11/09/21 16:07:00 EDT, Tablet, [facility]/pharmacy #[id number], Partial fill upon patient... Start Date: 11/09/21 Status: Ordered olopatadine 0.1% ophthalmic solution 1 drops, Eyes, Both, 2 times a day, PRN eye allergies, # 5 mL, 11 Refills, Maintenance, 10/28/22 10:43:00 EDT, Ophth Solution, [facility]/pharmacy #1026, ., 1 drops Eyes, Both 2 [...] hours, PRN Cough, label in [place], # 180 mL, 1 Refills, Maintenance, 12/01/22 17:23:00 EDT, [facility], Partial fill upon patient request if [...] day, Take before meal ; [place], # 120 tablet, 11 Refills, Maintenance, 06/01/21 13:40:00 EDT, [facility]/pharmacy #1026, 162.6, cm, 05/28/21 11:04:00 EDT, Height, 81.1, kg, 11/24/20 11:26:00 EDT, Dry Weight Start Date: 06/01/21 Status: Ordered tamsulosin 0.4 mg oral capsule 0.4 mg, 1, capsule, By Mouth, Daily, # 30 capsule, Refills 5, Tot. Refills 5, Maintenance, 219:31:00 EDT, Route to Pharmacy Electronically, [facility]/pharmacy #[id number], 162.6, cm, 11/24/20 11:22:00 EDT, Height, 81.1, kg, 11/24/20 11:26:00 EDT, Dry Weight Start Date: 12/05/20 Status: Ordered Vitamin D3 1000 intl units oral tablet 1 tablet = 25 mcg, By Mouth, Daily, for 30 days, # 30 tablet, 11 Refills, Physician Stop 07/07/23 16:35:00 EST, 07/12/22 16:35:00 EST, [facility]/pharmacy #[id number], 162.6, cm, 05/06/22 10:10:00 EDT, Height, 81.1, kg, 11/24/20 11:26:00 EDT, Dry Weight Start Date: 07/12/22 Stop Date: 07/07/23 Status: Ordered zolpidem 10 mg oral tablet 1 tablet = 10 mg, By Mouth, Daily at bedtime, given by psych, Lorie Castano HUMAN FACTORS SCIENTIST, 0 Refills, Maintenance, 06/19/15 14:48:48 Start Date: [...] of left hip joint Confirmed Active [facility] Care Management Program Trouble Lineman Fransisco Chacon [phone] Confirmed Active 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 11 Confirmed Active Rosacea, acne Confirmed Active Chronic pain of both shoulders Confirmed Active Positive serology for syphilis Confirmed Active Tear of meniscus of left knee 12 Confirmed 12/2015 Active Tension headache Confirmed 11/15/08 Active 1diagnosed at [facility] 2correction date food esophagus impactation [...] Susceptibility artifact within the infrapatellar soft tissues. Diagnosis Diagnosis Type Effective Dates Health Status Clini leroy Service Informant Pharyngitis Discharge Diagnosis 03/09/23 Nasal pain Discharge Diagnosis 03/09/23 Vital Signs Most recent to oldest [Reference Range]: 1 Height 162.6 cm (03/09/23 9:43 AM) Oxygen Saturation [94-100 %] 96 % (03/09/23 9:43 AM) Pulse Rate [55-90 bpm] 91 bpm *H* (03/09/23 9:43 AM) Blood Pressure [90-138/55-84 mm Hg] 127/ 72mm Hg (03/09/23 9:43 AM) Temperature [96.8-100.4 DegF] 98 DegF (03/09/23 9:43 AM) Mode of Delivery (Oxygen) Room air (03/09/23 9:43 AM) Blood pressure sites Arm, left (03/09/23 9:43 AM) Temperature Route Temporal (03/09/23 9:43 AM) Social History Social History Type Response Smoking Status Former smoker, quit more than 30 days ago entered on: 03/29/22 Sex Note * Ofelia Ryan: PERFORM, SIGN, VERIFY Event Display: Patient Education/Instruction Authored Date: [id number] [facility] *[facility] Clinical Summary Name EJ ELIAS Age 62 Years 1960 PCP Zhang Benitez MD PCP Visit Date 03/09/2023 09:42:00 Additional Instructions: Scheduled Appointments?? Future Appointments ?*[facility] ?[address]??[place],??[place],??[address] ?Phone:??--?Fax:??-- ?Appt. Date:??03/10/2023?9:30 AM ?Scheduled Provider:??Zhang Meyers MD Follow-Up Instructions ?? Diagnosis Acute pharyngitis, unspecified; Other specified disorders of nose and nasal sinuses Medications: Please continue your medications until treatment is completed or stopped by your provider. Discuss any questions related to medications with your provider. Medications to Continue with No Changes These medications were not printed or sent to your pharmacy Ammonium Lactate 12% (ammonium lactate 12% topical cream) 1 applicator Topically twice a day. Refills: 11. Next Dose: BuPROpion (buPROPion 150 mg/12 hours (SR) oral tablet, extended release) 1 tab(s) Oral twice a day.given by Radha avendano. Next Dose: Cabergoline (cabergoline 0.5 mg oral tablet) 0.5 tab(s) Oral every Tuesday and for 30 Days.Refills: 1. Next Dose: Celecoxib (celecoxib 200 mg oral capsule) 1 capsule Oral twice a day as needed NEEDED FOR PAIN WITH FOOD DISCONTINUE MELOXICAM. Refills: 0. Next Dose: Cetirizine (cetirizine 10 mg oral tablet) 1 tab(s) Oral Daily. In place of Loratadine label in [place]. Refills: 1. Next Dose: Cholecalciferol (Vitamin D3 1000 intl units oral tablet) 1 tab(s) Oral Daily for 30 Days. Refills: 11. Next Dose: Clonazepam (clonazePAM 0.5 mg oral tablet) 1 tab(s) Oral twice a day. given by Radha avendano. Next Dose: Disulfiram (disulfiram 250 mg oral tablet) 2 tablets By Mouth Daily for the first 2 weeks then 1 tablet daily Abstain from any alcohol for at least 12 hours before using Do not drink alcohol Avoid metronidazole. Refills: 2. Next Dose: dolutegravir (dolutegravir 50 mg oral tablet) 1 tab(s) Oral Daily for 28 Days. for post-exposure prophylaxis take with emtricitabine-tenofovir. Refills: 0. Next Dose: Durable Medical Equipment (right custom AFO) right foot drop. Refills: 0. Next Dose: Emtricitabine-Tenofovir (Descovy 200 mg-25 mg oral tablet) 1 tab(s) Oral Daily. Refills: 6. Next Dose: Emtricitabine-Tenofovir (emtricitabine-tenofovir disoproxil 200 mg-300 mg oral tablet) 1 tab(s) Oral Daily for 28 Days. for post-exposure prophylaxis take with dolutegravir. Refills: 0. Next Dose: Fluoxetine (FLUoxetine 10 mg oral capsule) 1 capsule Oral Daily. given by Radha avendano. Next Dose: Fluticasone Nasal (fluticasone 50 mcg/inh nasal spray) SPRAY 2 SPRAYS INTO EACH NOSTRIL TODOS [place]. Refills: 11. Next Dose: Gabapentin (gabapentin 400 mg oral capsule) TOME KARL CAPSULA POR VIA ORAL VICTORIA VECES AL DACIA. Refills: 11. Next Dose: Guaifenesin/Dextromethorphan (Robitussin Cough + Chest Congestion DM Maximum Strength 20 mg-400 mg/20 mL oral liquid) 20 Milliliter Oral every 4 hours as needed Cough. label in [place]. Refills: 1. Next Dose: Lansoprazole (lansoprazole 15 mg oral enteric coated capsule) TOME 1 CAPSULA POR VIA ORAL TODOS [place] TAKE 30 MINS BEFORE BREAKFAST. Refills: 0. Next Dose: Loperamide (loperamide 2 mg oral capsule) (Use 2 capsule the first time then 1 capsule after each loose stool.not to exceed 8 capsules, or 16 mg, in 24 hours). Refills: 1. Next Dose: Loratadine (loratadine 10 mg oral tablet) TOME KARL TABLETA POR VIA ORAL TODOS [place] CUANDO SEA NECESARIO ALLERGY SYMPTOMS. Refills: 5. Next Dose: Metronidazole Topical (metroNIDAZOLE 0.75% topical gel) 1 eugenio Topically twice a day. Apply a thin film to affected area after washing.. Refills: 11. Next Dose: Mometasone Topical (mometasone 0.1% topical cream) 1 eugenio Topically Daily. apply a thin film in affected area- chest, abdomen, back. Refills: 1. Next Dose: Montelukast (montelukast 10 mg oral tablet) 1 tab(s) Oral Daily at Bedtime. Refills: 11. Next Dose: Nitroglycerin (nitroglycerin 0.4 mg sublingual tablet) 1 tab(s) Sublingual every 5 minutes as needed Chest Pain. (not to exceed 3 doses/15 min--if pain persists, seek medical attention). Refills: 3. Next Dose: Olopatadine Ophthalmic (olopatadine 0.1% ophthalmic solution) 1 Drops Both eyes twice a day as needed eye allergies. Refills: 11. Next Dose: Quetiapine (QUEtiapine 300 mg oral tablet) 1 tab(s) Oral Daily at Bedtime. psychiatric, Radha Cueva. Next Dose: Sildenafil (sildenafil 100 mg oral tablet) 1 tab(s) Oral Daily. 1 hour before sexual activity Do not use with NTG or if has chest pain. Refills: 0. Next Dose: Simethicone (simethicone 125 mg oral tablet, chewable) 1 tab(s) Chew 4 times a day. Take before meal ; [place]. Refills: 11. Next Dose: Tamsulosin (tamsulosin 0.4 mg oral capsule) 1 capsule Oral Daily. Refills: 5. Next Dose: Zolpidem (zolpidem 10 mg oral tablet) 1 tab(s) Oral Daily at Bedtime. given by Lorie avendano NP. Next Dose: Allergy Info:?? penicillin Medications Given This Visit Future Orders ?No future orders Vital Signs Height 162.6 cm Weight BMI Blood Pressure 127 mm Hg/72 mm Hg Temperature 98 DegF Pulse Rate 91 bpm Respiratory Rate 02 Sat Mode of Delivery 96 %/Room air You can now view a summary of your hospital visit from the comfort of your home through a free online portal called [employer]. [employer] is a website that allows you to securely view your medical information including discharge summary, medications and follow-up visits. ??You can alsosend a secure electronic message to your doctor???s office to request appointments, renew medications or just ask a question. You can enroll at [email or web address] or register during your next office visit. Disclaimer:?? The information provided is of a general nature and is intended to be used in conjunction with the recommendations and advice of your health care practitioner. ??Every effort has been made to ensure that the information provided is accurate and complete at the time it is provided to you however, as your needs change, or, as new ??information becomes available, different or additional instructions may be required. If you have questions, please consult with your primary care provider or pharmacist, as appropriate. ??This information is not intended to serve as substitution for assessment and evaluation by a qualified health care provider. If you do not have a primary care provider, you may find a [facility] provider by calling [facility] at [phone]. For information about the plan of care including goals and instructions for your diagnosis, please see the patient education orders section of this document. Patient Education Materials?? The content of this educational material or handout may have been modified, supplemented, or adapted from its original content and format to support your individualized medical care. Patient Care team information Care Team Personnel Name: Daron Allen RN Position: [facility] RN Member Role: Primary Care Nurse Name: Zhang Benitez MD Position: [facility] Physician - Primary Care Member Role: PCP Address: Address: [address] [place] [address]- Care Team Related Persons Name: DOMINGO ELIAS Name: BRANDY ROBERSON Address: [address] [address] Name: PT STATES, NO ONE
--- OUTSIDE RECORDS SUMMARY | 2023-05-24 11:03 | XMS_ITS | Continuity of Care Document ---
Author Name Unknown Organization [facility] Address [address] [place] [address]- Care Team Providers Care Clin Nurse Name Role Phone Zhang Benitez MD Primary Care Physician En[place] [facility] Date(s): 04/18/23 - 05/18/23 [facility]/[place] [address]- [place] Allergies, Adverse Reactions, Alerts Substance Reaction Severity Status penicillin Active Immunizations Given and Recorded Vaccine Date Status Refusal Reason influenza virus vaccine, inactivated 07/13/22 Give n influenza virus vaccine, inactivated 04/23/21 Anival rded influenza virus vaccine, inactivated 05/17/18 Give n influenza virus vaccine, inactivated 06/30/16 Give n [id number] bivalent booster vax 07/09/22 Recorded SARS-CoV-2 (COVID-19) [...] 0 Refills, Maintenance, 04/13/23 12:35:00 EDT, Tablet, [facility]/pharmacy #[id number], Partial fill upon patient request [...] 5 Refills, Maintenance, 04/07/23 15:40:00 EDT, Gel, [facility]/pharmacy #[id number], ., 162.6, cm, 04/07/23 9:53:00 [...] mL, 11 Refills, Maintenance, 01/12/23 17:33:00 EDT, [facility]/pharmacy #[id number], 30, SPRAY 2 SPRAYS INTO EACH NOSTRIL TODOS [place], 162.6, cm, 01/12/23 14:53:00 EDT, Height Start Date: 01/12/23 Status: Ordered gabapentin 300 mg oral capsule 300 mg, 1, capsule, By Mouth, Daily, PRN, # 30 capsule, Refills 5, Tot. Refills 5, Maintenance, Pain , Moderate, 04/07/23 17:49:00 EDT, Route to Pharmacy Electronically, [facility]/pharmacy #[id number], 162.6, cm, 04/07/23 9:53:00 EDT, Height Start Date: 04/07/23 Status: Ordered hydrocortisone 1% topical cream 1 application, Topically, 2 times a day, EYE LIDS AVOID GETTING IN EYES LABEL IN [place], # 30 Gm, 0 Refills, Maintenance, 03/18/23 [...] Refills, Maintenance, 02/21/23 15:11:00 EDT, [id number], 162.6, cm, 01/12/23 14:53:00 EDT, Height Start Date: 02/21/23 Status: Ordered loratadine 10 mg oral tablet See Instructions, TOME KARL TABLETA POR VIA ORAL TODOS [place] CUANDO SEA NECESARIO ALLERGY SYMPTOMS, # 30 tablet, Refills 5, Maintenance, 11/13/22 16:18:00 EDT, Instructions Replace Required Details, Route to Pharmacy Electronically, [id number],... Start Date: 11/13/22 Status: Ordered metroNIDAZOLE 0.75% topical gel 1 application, Topically, 2 times a day, Apply a thin film to affected area after washing., # 45 Gm, 11 Refills, Maintenance, Rosacea, 01/12/23 17:32:00 EDT, [facility]/pharmacy #[id number], 1 application Topically 2 times a day,Instr:Apply a thin film to affected... Start Date: 01/12/23 Status: Ordered naphazoline 0.012% ophthalmic solution 1-2 drops, Eyes, Both, 4 times a day, PRN Red eyes, Getting [id number]???name: Clear eyes, # 15 mL, 0 Refills, Maintenance, 03/31/23 13:56:00 EDT, . Start Date: 03/31/23 Status: Ordered nortriptyline 10 mg oral capsule 10 mg, 1, capsule, By Mouth, Daily at bedtime, # 30 capsule, Refills 2, Tot. Refills 2, Maintenance, 04/07/23 11:01:00 EDT, Route to Pharmacy Electronically, [facility]/pharmacy #[id number], Partial fill upon patient request [...] Every 4 hours, PRN Cough, label in turkish, # 180 mL, 1 Refills, Maintenance, 12/01/22 17:23:00 EDT, [facility], Partial fill upon patient request if [...] Stop 07/07/23 16:35:00 EST, 07/12/22 16:35:00 EST, [facility]/pharmacy #[id number], 162.6, cm, 05/06/22 10:10:00 EDT, [...] of left hip joint Confirmed Active [facility] Care Management Program Senior Mechanical Design Engineer Fransisco Chacon [phone] Confirmed Active 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 11 Confirmed Active Rosacea, acne Confirmed Active Chronic pain of both shoulders Confirmed Active Tear of meniscus of left knee 12 Confirmed 12/2015 Active Tension headache Confirmed 11/15/08 Active 1diagnosed at [facility] 2correction date food esophagus impactation is [...] Team Personnel Name: Daron Allen RN Position: [facility] RN Member Role: Primary Care Nurse Name: Zhang Benitez MD Position: [facility] Physician - Primary Care Member Role: PCP Address: Address: [address] [place] [address]- Care Team Related Persons Name: DOMINGO ELIAS Name: BRANDY ROBERSON Address: [address] [address] Name: PT STATES, NO ONE
--- OUTSIDE RECORDS SUMMARY | 2023-05-24 11:03 | XMS_ITS | Continuity of Care Document ---
Author Name Unknown Organization [facility] Address [address] [facility], [address] d Floor, [address] [place] [id number]- Care Team Providers Care Advertising Operations Manager Name Role Phone Emmanuel CARRILLO, Zhang Primary Care Physician Encounter [facility] Date(s): 12/14/22 - 01/29/23 [facility] [address] [place], [address] Floor, [address] [place] [address] Attending Physician: Wesly Velasquez MD Admitting Physician: Wesly Velasquez MD Referring Physician: Zhang Benitez MD Allergies, Adverse Reactions, Alerts Substance Reaction Severity Status penicillin Active Immunizations Given and Recorded Vaccine Date Status Refusal Reason influenza virus vaccine, inactivated 07/13/22 Give n influenza virus vaccine, inactivated 04/23/21 Anivla rded influenza virus vaccine, inactivated 05/17/18 Give n influenza virus vaccine, inactivated 06/30/16 Give n [id number] bivalent booster vax 07/09/22 Recorded SARS-CoV-2 (COVID-19) [...] adult vaccine 7 09/14/06 Given 1Result Comment: [facility] AVLisa 2Admin Note: ADACEL VIS [...] Gm, 11 Refills, Maintenance, 05/28/21 12:56:00 EDT, [facility]/pharmacy #[id number], 1 applicator Topically 2 times [...] tablet, 1 Refills, Maintenance, 11/04/21 1:02:00 EDT, [facility]/pharmacy #[id number], 162.6, cm, 10/29/21 10:19:00 EDT, Height, 81.1, kg, 11/24/2110:26:00 EDT, Dry Weight Start Date: 11/04/21 Stop Date: 01/03/22 Status: Ordered celecoxib 200 mg oral capsule 1 capsule, By Mouth, 2 times a day, PRN NEEDED FOR PAIN WITH FOOD DISCONTINUE MELOXICAM, # 60 capsule, 0 Refills, Maintenance, 12/12/22 21:40:00 EDT, [id number], 162.6, cm, 11/19/22 11:04:00 EDT, Height Start Date: 12/12/22 Status: Ordered cetirizine 10 mg oral tablet 1 tablet = 10 mg, By Mouth, Daily, In place of Loratadine label in [place], # 30 tablet, 1 Refills,Maintenance, 11/10/22 11:58:00 [...] tablet, 0 Refills, Maintenance, 04/29/22 15:30:00 EDT, [facility]/pharmacy #[id number], Partial fill upon patient request [...] mL, 11 Refills, Maintenance, 01/12/23 17:33:00 EDT, [facility]/pharmacy #[id number], 30, SPRAY 2 SPRAYS INTO EACH NOSTRIL [place]OS [place], 162.6, cm, 01/12/23 14:53:00 EDT, Height Start Date: 01/12/23 Status: Ordered gabapentin 400 mg oral capsule See Instructions, TOME KARL CAPSULA POR VIA ORAL VICTORIA VECES AL DACIA, # 90 capsule, Refills 11, Tot. Refills 11, 11/06/19 14:40:00 EDT, Instructions Replace Required Details, Route to Pharmacy Electronically, [facility]/pharmacy #[id number], 162.56, cm, 10/18/19 10:4... Start Date: 11/06/19 Status: Ordered lansoprazole 15 mg oral enteric coated capsule See Instructions, TOME 1 CAPSULA POR VIA ORAL TODOS [place] TAKE 30 MINS BEFORE BREAKFAST, # 30 capsule, 2 Refills, Maintenance, 11/23/22 7:43:00 EDT, [id number], 162.6, cm, 11/19/22 11:04:00 EDT, Height, 81.1, [...] Replace Required Details, Route to Pharmacy Electronically, [id number],... Start Date: 11/13/22 Status: Ordered metroNIDAZOLE 0.75% topical gel 1 application, Topically, 2 times a day, Apply a thin film to affected area after washing., # 45 Gm, 11 Refills, Maintenance, Rosacea, 01/12/23 17:32:00 EDT, [facility]/pharmacy #[id number], 1 application Topically 2 times [...] 10/30/21 14:05:00 EDT, Route to Pharmacy Electronically, [facility]/pharmacy #[id number], Partial fill upon patient request if the prescription is for a schedule I... Start Date: 10/30/21 Status: Ordered nitroglycerin 0.4 mg sublingual tablet 1 tablet = 0.4 mg, Sublingual, Every 5 minutes, PRN Chest Pain, (not to exceed 3 doses/15 min--if pain persists, seek medical attention), # 25 tablet, 3 Refills, Maintenance, 11/09/21 16:07:00 EDT, Tablet, [facility]/pharmacy #[id number], Partial fill upon patient... Start Date: 11/09/21 Status: Ordered olopatadine 0.1% ophthalmic solution 1 drops, Eyes, Both, 2 times a day, PRN eye allergies, # 5 mL, 11 Refills, Maintenance, 10/28/22 10:43:00 EDT, Ophth Solution, [facility]/pharmacy #[id number], ., 1 drops Eyes, Both [...] Every 4 hours, PRN Cough, label in [place], # 180 mL, 1 Refills, Maintenance, 12/01/22 17:23:00 EDT, [facility], Partial fill upon patient request if [...] times a day, Take before meal ; [place], # 120 tablet, 11 Refills, Maintenance, 06/01/21 13:40:00 EDT, [facility]/pharmacy #[id number], 162.6, cm, 05/28/21 11:04:00 EDT, Height, 81.1, kg, 11/24/20 11:26:00 EDT, Dry Weight Start Date: 06/01/21 Status: Ordered tamsulosin 0.4 mg oral capsule 0.4 mg, 1, capsule, By Mouth, Daily, # 30 capsule, Refills 5, Tot. Refills 5, Maintenance, :31:00 EDT, Route to Pharmacy Electronically, [facility]/pharmacy #[id number], 162.6, cm, 11/24/20 11:22:00 EDT, Height, 81.1, kg, 11/24/20 11:26:00 EDT, Dry Weight Start Date: 12/05/20 Status: Ordered Vitamin D3 1000 intl units oral tablet 1 tablet = 25 mcg, By Mouth, Daily, for 30 days, # 30 tablet, 11 Refills, Physician Stop 07/07/23 16:35:00 EST, 07/12/22 16:35:00 EST, [facility]/pharmacy #1026, 162.6, cm, 05/06/22 10:10:00 EDT, Height, 81.1, kg, 11/24/20 11:26:00 EDT, Dry Weight Start Date: 07/12/22 Stop Date: 07/07/23 Status: Ordered zolpidem 10 mg oral tablet 1 tablet = 10 mg, By Mouth, Daily at bedtime, given by psych, Lorie Castano SOILS TECHNICIAN, 0 Refills, Maintenance, 06/19/15 14:48:48 Start Date: [...] of left hip joint Confirmed Active [facility] Care Management Program Hotel Sales Manager Fransisco Chacon [phone] Confirmed Active 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 11 Confirmed Active Rosacea, acne Confirmed Active Chronic pain of both shoulders Confirmed Active Positive serology for syphilis Confirmed Active Tear of meniscus of left knee 12 Confirmed 12/2015 Active Tension headache Confirmed 11/15/08 Active 1diagnosed at [facility] 2correction date food esophagus impactation [...] Care Nurse Name: Zhang Benitez MD Position: [facility] Physician - Primary Care Member Role: PCP Address: Address: [address] [place] [address]- [place] Care Team Related Persons Name: DOMINGO ELIAS Name: BRANDY ROBERSON Address: [address] [address] Name: PT STATES, NO ONE
--- OUTSIDE RECORDS SUMMARY | 2023-05-24 11:03 | XMS_ITS | Continuity of Care Document ---
Author Name Unknown Organization [facility] Address [address] [place] [address]- Care Team Providers Care Pediatric Dental Hygienist Name Role Phone Emmanuel CARRILLO, Zhang Primary Care Physician [place] [facility] 04/21/23 - 05/21/23 [facility] [address]- [place] Allergies, Adverse Reactions, Alerts Substance Reaction Severity Status penicillin Active Immunizations Given and Recorded Vaccine Date Status Refusal Reason influenza virus vaccine, inactivated 07/13/22 Give n influenza virus vaccine, inactivated 04/23/21 Anival rded influenza virus vaccine, inactivated 05/17/18 Give n influenza virus vaccine, inactivated 06/30/16 Give n [id number] bivalent booster vax 07/09/22 Recorded SARS-CoV-2 (COVID-19) [...] adult vaccine 7 09/14/06 Given 1Result Comment: [facility] MEDRANO 2Admin Note: ADACEL [...] 0 Refills, Maintenance, 04/13/23 12:35:00 EDT, Tablet, [facility]/pharmacy #[id number], Partial fill upon patient request [...] 5 Refills, Maintenance, 04/07/23 15:40:00 EDT, Gel, [facility]/pharmacy #[id number], ., 162.6, cm, 04/07/23 9:53:00 [...] mL, 11 Refills, Maintenance, 01/12/23 17:33:00 EDT, [facility]/pharmacy #1026, 30, SPRAY 2 SPRAYS INTO EACH NOSTRIL [place], 162.6, cm, 01/12/23 14:53:00 EDT, Height Start Date: 01/12/23 Status: Ordered gabapentin 300 mg oral capsule 300 mg, 1, capsule, By Mouth, Daily, PRN, # 30 capsule, Refills 5, Tot. Refills 5, Maintenance, Pain , Moderate, 04/07/23 17:49:00 EDT, Route to Pharmacy Electronically, [facility]/pharmacy #[id number], 162.6, cm, 04/07/23 9:53:00 EDT, Height Start Date: 04/07/23 Status: Ordered hydrocortisone 1% topical cream 1 application, Topically, 2 times a day, EYE LIDS AVOID GETTING IN EYES LABEL IN [place], # 30 Gm, 0 Refills, Maintenance, 03/18/23 13:43:00 EDT, Cream, [facility]/pharmacy #[id number], Partial fill upon patient request if the prescription is for a schedule II o... Start Date: 03/18/23 Status: Ordered lansoprazole 15 mg oral enteric coated capsule See Instructions, TOME 1 CAPSULA POR VIA ORAL [place] TAKE 30 MINS BEFORE BREAKFAST, # 90 capsule, 0 Refills, Maintenance, 02/21/23 15:11:00 EDT, [id number], 162.6, cm, 01/12/23 14:53:00 EDT, Height Start Date: 02/21/23 Status: Ordered loratadine 10 mg oral tablet See Instructions, TOME KARL TABLETA POR VIA ORAL TODOS [place] CUANDO SEA NECESARIO ALLERGY SYMPTOMS, # 30 tablet, Refills 5, Maintenance, 11/13/22 16:18:00 EDT, Instructions Replace Required Details, Route to Pharmacy Electronically, [id number],... Start Date: 11/13/22 Status: Ordered metroNIDAZOLE 0.75% topical gel 1 application, Topically, 2 times a day, Apply a thin film to affected area after washing., # 45 Gm, 11 Refills, Maintenance, Rosacea, 01/12/23 17:32:00 EDT, [facility]/pharmacy #[id number], 1 application Topically 2 times a day,Instr:Apply a thin film to affected... Start Date: 01/12/23 Status: Ordered naphazoline 0.012% ophthalmic solution 1-2 drops, Eyes, Both, 4 times a day, PRN Red eyes, Getting [id number]???name: Clear eyes, # 15 mL, 0 Refills, Maintenance, 03/31/23 13:56:00 EDT, . Start Date: 03/31/23 Status: Ordered nortriptyline 10 mg oral capsule 10 mg, 1, capsule, By Mouth, Daily at bedtime, # 30 capsule, Refills 2, Tot. Refills 2, Maintenance, 04/07/23 11:01:00 EDT, Route to Pharmacy Electronically, [facility]/pharmacy #[id number], Partial fill upon patient request [...] Every 4 hours, PRN Cough, label in [place]pri[place], # 180 mL, 1 Refills, Maintenance, 12/01/22 17:23:00 EDT, [facility], Partial fill upon patient request if [...] Stop 07/07/23 16:35:00 EST, 07/12/22 16:35:00 EST, [facility]/pharmacy #[id number], 162.6, cm, 05/06/22 10:10:00 EDT, [...] of left hip joint Confirmed Active CP [facility] Care Management Program Home [employer] Fransisco Chacon [phone] Confirmed Active 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 11 Confirmed Active Rosacea, acne Confirmed Active Chronic pain of both shoulders Confirmed Active Tear of meniscus of left knee 12 Confirmed 12/2015 Active Tension headache Confirmed 11/15/08 Active 1diagnosed at [facility] 2correction date food esophagus impactation is 06/30/12 [...] Team Personnel Name: Daron Allen RN Position: [facility] RN Member Role: Primary Care Nurse Name: Zhang Benitez MD Position: [facility] Physician - Primary Care Member Role: PCP Address: Address: [address] [place] [address]- Care Team Related Persons Name: DOMINGO ELIAS Name: BRANDY ROBERSON Address: [address] [address] Name: STATES, NO ONE
--- OUTSIDE RECORDS SUMMARY | 2023-05-24 11:04 | XMS_ITS | Continuity of Care Document ---
Author Name Unknown Organization [facility] Address [address] [place] [address]- Care Team Providers Care Purchasing Manager/Sales Name Role Phone Emmanuel CARRILLO, Zhang Primary Care Physician [place] [facility]02[place]22 - 01/01/23 [facility] [place] [address]- [place] Allergies, Adverse Reactions, Alerts Substance Reaction Severity Status penicillin Active Immunizations Given and Recorded Vaccine Date Status Refusal Reason influenza virus vaccine, inactivated 07/13/22 Give n influenza virus vaccine, inactivated 04/23/21 Anival rded influenza virus vaccine, inactivated 05/17/18 Give n influenza virus vaccine, inactivated 06/30/16 Give n [id number] bivalent booster vax 07/09/22 Recorded SARS-CoV-2 (COVID-19) [...] adult vaccine 7 09/14/06 Given 1Result Comment: [facility] CHAR[facility] MEDRANO 2Admin Note: [...] Gm, 11 Refills, Maintenance, 05/28/21 12:56:00 EDT, [facility]/pharmacy #[id number], 1 applicator Topically 2 [...] tablet, 1 Refills, Maintenance, 11/04/21 1:02:00 EDT, [facility]/pharmacy #1026, 162.6, cm, 10/29/21 10:19:00 EDT, Height, 81.1, kg, 11/24/2110:26:00 EDT, Dry Weight Start Date: 11/04/21 Stop Date: 01/03/22 Status: Ordered celecoxib 200 mg oral capsule 1 capsule, By Mouth, 2 times a day, PRN NEEDED FOR PAIN WITH FOOD DISCONTINUE MELOXICAM, # 60 capsule, 0 Refills, Maintenance, 12/12/22 21:40:00 EDT, [id number], 162.6, cm, 11/19/22 11:04:00 EDT, Height Start Date: 12/12/22 Status: Ordered cetirizine 10 mg oral tablet 1 tablet = 10 mg, By Mouth, Daily, In place of Loratadine label in libyan, # 30 tablet, 1 Refills,Maintenance, 11/10/22 11:58:00 [...] 0 Refills, Maintenance, 04/29/22 15:30:00 EDT, Tablet, [facility]/pharmacy #1026, Partial fill upon patient request if the prescription is for... Start Date: 04/29/22 Stop Date: 05/27/22 Status: Ordered emtricitabine-tenofovir disoproxil 200 mg-300 mg oral tablet 1 tablet, By Mouth, Daily, for post-exposure prophylaxis take with dolutegravir, # 28 tablet, 0 Refills, Maintenance, 04/29/22 15:30:00 EDT, [facility]/pharmacy #[id number], Partial fill upon patient [...] 5 Refills, Maintenance,07/07/22 19:25:00 EST, [facility], 30, SPRAY 2 SPRAYS INTO EACH NOSTRIL [place], 162.6,cm, 05/06/22 10:10:00 EDT, Height, 81.1, kg, ... Start Date: 07/07/22 Status: Ordered gabapentin 400 mg oral capsule See Instructions, TOME KARL CAPSULA POR VIA ORAL VICTORIA VECES AL DACIA, # 90 capsule, Refills 11, Tot. Refills 11, 11/06/19 14:40:00 EDT, Instructions Replace Required Details, Route to Pharmacy Electronically, [facility]/pharmacy #1026, 162.56, cm, 10/18/19 10:4... Start Date: 11/06/19 Status: Ordered lansoprazole 15 mg oral enteric coated capsule See Instructions, TOME 1 CAPSULA POR VIA ORAL TODOS [place] TAKE 30 MINS BEFORE BREAKFAST, # 30 capsule, 2 Refills, Maintenance, 11/23/22 7:43:00 EDT, [facility], 162.6, cm, 11/19/22 11:04:00 EDT, Height, 81.1, [...] Replace Required Details, Route to Pharmacy Electronically, [id number],... Start Date: 11/13/22 Status: Ordered metroNIDAZOLE 0.75% topical gel 1 application, Topically, 2 times a day, Apply a thin film to affected area after washing., # 45 Gm, 11 Refills, Maintenance, Rosacea, 07/28/22 15:02:00 EST, [facility]/pharmacy #1026, 1 application Topically 2 times a day,Instr:Apply a thin film to affected... Start Date: 07/28/22 Status: Ordered mometasone 0.1% topical cream 1 application, Topically, Daily, apply a thin film in affected area- chest, abdomen, back, # 90 Gm,1 Refills, Maintenance, 10/15/20 22:55:00 EST, Cream, [facility]/pharmacy #1026, 1 application Topically Daily,Instr:apply a thin film in affected area- del... Start Date: 10/15/20 Status: Ordered montelukast 10 mg oral tablet 10 mg, 1, tablet, By Mouth, Daily at bedtime, # 30 tablet, Refills 11, Tot. Refills 11, Maintenance, 10/30/21 14:05:00 EDT, Route to Pharmacy Electronically, [facility]/pharmacy #1026, Partial fill upon patient request if the prescription is for a schedule I... Start Date: 10/30/21 Status: Ordered nitroglycerin 0.4 mg sublingual tablet 1 tablet = 0.4 mg, Sublingual, Every 5 minutes, PRN Chest Pain, (not to exceed 3 doses/15 min--if pain persists, seek medical attention), # 25 tablet, 3 Refills, Maintenance, 11/09/21 16:07:00 EDT, Tablet, [facility]/pharmacy #1026, Partial fill upon patient... Start Date: 11/09/21 Status: Ordered olopatadine 0.1% ophthalmic solution 1 drops, Eyes, Both, 2 times a day, PRN eye allergies, # 5 mL, 11 Refills, Maintenance, 10/28/22 10:43:00 EDT, Ophth Solution, [facility]/pharmacy #1026, ., 1 drops Eyes, [...] Every 4 hours, PRN Cough, label in libyan, # 180 mL, 1 Refills, Maintenance, 12/01/22 17:23:00 EDT, [facility], Partial fill upon patient request if [...] times a day, Take before meal ; libyan, # 120 tablet, 11 Refills, Maintenance, 06/01/21 13:40:00 EDT, [facility]/pharmacy #1026, 162.6, cm, 05/28/21 11:04:00 EDT, Height, 81.1, kg, 11/24/20 11:26:00 EDT, Dry Weight Start Date: 06/01/21 Status: Ordered tamsulosin 0.4 mg oral capsule 0.4 mg, 1, capsule, By Mouth, Daily, # 30 capsule, Refills 5, Tot. Refills 5, Maintenance, 219:31:00 EDT, Route to Pharmacy Electronically, [facility]/pharmacy #1026, 162.6, cm, 11/24/20 11:22:00 EDT, Height, 81.1, kg, 11/24/20 11:26:00 EDT, Dry Weight Start Date: 12/05/20 Status: Ordered Vitamin D3 1000 intl units oral tablet 1 tablet = 25 mcg, By Mouth, Daily, for 30 days, # 30 tablet, 11 Refills, Physician Stop 07/07/23 16:35:00 EST, 07/12/22 16:35:00 EST, [facility]/pharmacy #1026, 162.6, cm, 05/06/22 10:10:00 EDT, [...] of left hip joint Confirmed Active [facility] Care Management Program Labor Conciliator Fransisco Chacon [phone] Confirmed Active 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 11 Confirmed Active Rosacea, acne Confirmed Active Chronic pain of both shoulders Confirmed Active Positive serology for syphilis Confirmed Active Tear of meniscus of left knee 12 Confirmed 12/2015 Active Tension headache Confirmed 11/15/08 Active 1diagnosed at [facility] 2correction date food esophagus impactation is [...] Primary Care Member Role: PCP Address: Address: [address] [place] [address]- Care Team Related Persons Name: CURT DOMINGO Name: BRANDY ROBERSON Address: [place] [address] Name: PT STATES, NO ONE
--- OUTSIDE RECORDS SUMMARY | 2023-05-24 11:04 | XMS_ITS | Continuity of Care Document ---
Author Name Unknown Organization [facility] Address [address] [place] [address]- Care Team Providers Care Cork Compounder Name Role Phone Emmanuel CARRILLO, Zhang Primary Care Physician Encounter [facility] Date(s): 02/22/23 - 03/26/23 [facility]/[place] [address]- Attending Physician: Ai Trimble MD Admitting Physician: Ai Trimble MD Allergies, Adverse Reactions, Alerts Substance Reaction Severity Status penicillin Active Immunizations Given and Recorded Vaccine Date Status Refusal Reason influenza virus vaccine, inactivated 07/13/22 Give n influenza virus vaccine, inactivated 04/23/21 Anival rded influenza virus vaccine, inactivated 05/17/18 Give n influenza virus vaccine, inactivated 06/30/16 Give n [id number] bivalent booster vax 07/09/22 Recorded SARS-CoV-2 (COVID-19) [...] adult vaccine 7 09/14/06 Given 1Result Comment: [facility] AVLisa 2Admin Note: ADACEL VIS 06/25/08 [...] Refills, Maintenance, 05/28/21 12:56:00 EDT, [facility]/pharmacy #[id number], 1 applicator Topically 2 times a [...] Refills, Maintenance, 11/04/21 1:02:00 EDT, [facility]/pharmacy #[id number], 162.6, cm, 10/29/21 10:19:00 EDT, Height, 81.1, kg, 11/24/2110:26:00 EDT, Dry Weight Start Date: 11/04/21 Stop Date: 01/03/22 Status: Ordered celecoxib 200 mg oral capsule 1 capsule, By Mouth, 2 times a day, PRN NEEDED FOR PAIN WITH FOOD DISCONTINUE MELOXICAM, # 60 capsule, 0 Refills, Maintenance, 02/16/23 15:28:00 EDT, [id number], 162.6, cm, 01/12/23 14:53:00 EDT, Height Start Date: 02/16/23 Status: Ordered cetirizine 10 mg oral tablet 1 tablet = 10 mg, By Mouth, Daily, In place of Loratadine label in burmese, # 30 tablet, 1 Refills,Maintenance, 11/10/22 11:58:00 EDT, Tablet, [facility]/pharmacy #[id number], Partial fill upon patient request if [...] Refills, Maintenance, 04/29/22 15:30:00 EDT, [facility]/pharmacy #[id number], Partial fill upon patient request if [...] mL, 11 Refills, Maintenance, 01/12/23 17:33:00 EDT, [id number], 30, SPRAY 2 SPRAYS INTO EACH NOSTRIL TODOS [place], 162.6, cm, 01/12/23 14:53:00 EDT, Height Start Date: 01/12/23 Status: Ordered gabapentin 400 mg oral capsule See Instructions, TOME KARL CAPSULA POR VIA ORAL VICTORIA VECES AL DACIA, # 90 capsule, Refills 11, Tot. Refills 11, 11/06/19 14:40:00 EDT, Instructions Replace Required Details, Route to Pharmacy Electronically, [facility]/pharmacy #[id number], 162.56, cm, 10/18/19 10:4... Start Date: 11/06/19 Status: Ordered hydrocortisone 1% topical cream 1 application, Topically, 2 times a day, EYE LIDS AVOID GETTING IN EYES LABEL IN AZERI, # 30 Gm, 0 Refills, Maintenance, 03/18/23 [...] Refills, Maintenance, 02/21/23 15:11:00 EDT, [id number], 162.6, cm, 01/12/23 14:53:00 EDT, Height Start [...] Replace Required Details, Route to Pharmacy Electronically, [id number],... Start Date: 11/13/22 Status: Ordered metroNIDAZOLE 0.75% topical gel 1 application, Topically, 2 times a day, Apply a thin film to affected area after washing., # 45 Gm, 11 Refills, Maintenance, Rosacea, 01/12/23 17:32:00 EDT, [facility]/pharmacy #1026, 1 application Topically 2 times a [...] EDT, Route to Pharmacy Electronically, [facility]/pharmacy #[id number], Partial fill upon patient request if the prescription is for a schedule I... Start Date: 10/30/21 Status: Ordered nitroglycerin 0.4 mg sublingual tablet 1 tablet = 0.4 mg, Sublingual, Every 5 minutes, PRN Chest Pain, (not to exceed 3 doses/15 min--if pain persists, seek medical attention), # 25 tablet, 3 Refills, Maintenance, 11/09/21 16:07:00 EDT, Tablet, [facility]/pharmacy #1026, Partial fill upon patient... Start Date: 11/09/21 Status: Ordered olopatadine 0.1% ophthalmic solution 1 drops, Eyes, Both, 2 times a day, PRN eye allergies, # 5 mL, 11 Refills, Maintenance, 10/28/22 10:43:00 EDT, Ophth Solution, [facility]/pharmacy #[id number], ., 1 drops Eyes, Both 2 [...] Every 4 hours, PRN Cough, label in burmese, # 180 mL, 1 Refills, Maintenance, 12/01/22 17:23:00 EDT, [facility], Partial fill upon patient request [...] times a day, Take before meal ; burmese, # 120 tablet, 11 Refills, Maintenance, 06/01/21 13:40:00 EDT, [facility]/pharmacy #[id number], 162.6, cm, 05/28/21 11:04:00 EDT, Height, 81.1, kg, 11/24/20 11:26:00 EDT, Dry Weight Start Date: 06/01/21 Status: Ordered tamsulosin 0.4 mg oral capsule 0.4 mg, 1, capsule, By Mouth, Daily, # 30 capsule, Refills 5, Tot. Refills 5, Maintenance, :31:00 EDT, Route to Pharmacy Electronically, [facility]/pharmacy #[id number], 162.6, cm, 11/24/20 11:22:00 EDT, Height, 81.1, kg, 11/24/20 11:26:00 EDT, Dry Weight Start Date: 12/05/20 Status: Ordered Vitamin D3 1000 intl units oral tablet 1 tablet = 25 mcg, By Mouth, Daily, for 30 days, # 30 tablet, 11 Refills, Physician Stop 07/07/23 16:35:00 EST, 07/12/22 16:35:00 EST, [facility]/pharmacy #[id number], 162.6, cm, 05/06/22 10:10:00 EDT, Height, [...] hip joint Confirmed Active [facility]CP [facility] Care Management Program Primary Special Education Teacher Fransisco Chacon [phone] Confirmed Active 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 11 Confirmed Active Rosacea, acne Confirmed Active Chronic pain of both shoulders Confirmed Active Positive serology for syphilis Confirmed Active Tear of meniscus of left knee 12 Confirmed 12/2015 Active Tension headache Confirmed 11/15/08 Active 1diagnosed at [facility] 2correction date food esophagus impactation is [...] Team Personnel Name: Daron Allen RN Position: [facility] RN Member Role: Primary Care Nurse Name: Emmanuel CARRILLO, Zhang Position: [facility] Physician - Primary Care Member Role: PCP Address: Address: [address] [place] [id number]- Care Team Related Persons Name: DOMINGO ELIAS Name: BRANDY ROBERSON Address: [address] [address] Name: STATES, NO ONE
--- OUTSIDE RECORDS SUMMARY | 2023-05-24 11:04 | XMS_ITS | Continuity of Care Document ---
Author Name Unknown Organization [facility] Address [address] [place] [address]- Care Team Providers Care Rocket Engine Mechanic Name Role Phone Zhang Benitez MD Primary Care Physician [place] [facility] Date(s): 03/09/23 - 04/22/23 [facility]/[place] [address]- Attending Physician: Rika Young MD Admitting Physician: Rika Young MD Allergies, Adverse Reactions, Alerts Substance Reaction Severity Status penicillin Active Immunizations Given and Recorded Vaccine Date Status Refusal Reason influenza virus vaccine, inactivated 07/13/22 Give n influenza virus vaccine, inactivated 04/23/21 Anival rded influenza virus vaccine, inactivated 05/17/18 Give n influenza virus vaccine, inactivated 06/30/16 Give n [id number] bivalent booster vax 07/09/22 Recorded SARS-CoV-2 (COVID-19) [...] adult vaccine 7 09/14/06 Given 1Result Comment: [facility] AV 2Admin Note: ADACEL VIS 06/25/08 GIVEN [...] 0 Refills, Maintenance, 04/13/23 12:35:00 EDT, Tablet, [facility]/pharmacy #1026, Partial fill upon patient request [...] Status: Ordered dexamethasone/neomycin/polymyxin B ophthalmic 1 mg-3.5 mg-21284 u/gm ointment 1 application, Eyes, Both, 3 times a day, for 30 days, as needed for itchiness, # 3.5 Gm, 0 Refills, Acute 04/30/23 12:53:00 EDT, 03/31/23 12:53:00 EDT, Ophth Ointment, [facility]/pharmacy #1026, Partial fill upon patient request if the prescription is for a... Start Date: 03/31/23 Stop Date: 04/30/23 Status: Ordered diclofenac 1% topical gel = 2 Gm, Topically, 4 times a day, # 100 Gm, 5 Refills, Maintenance, 04/07/23 15:40:00 EDT, Gel, [id number], ., 162.6, cm, 04/07/23 9:53:00 EDT, [...] 04/07/23 17:49:00 EDT, Route to Pharmacy Electronically, [facility]/pharmacy #1026, 162.6, cm, 04/07/23 9:53:00 EDT, Height Start Date: 04/07/23 Status: Ordered hydrocortisone 1% topical cream 1 application, Topically, 2 times a day, EYE LIDS AVOID GETTING IN EYES LABEL IN INDONESIAN, # 30 Gm, 0 Refills, Maintenance, 03/18/23 13:43:00 EDT, Cream, [facility]/pharmacy #1026, Partial fill upon patient request if the prescription is for a schedule II o... Start Date: 03/18/23 Status: Ordered lansoprazole 15 mg oral enteric coated capsule See Instructions, TOME 1 CAPSULA POR VIA ORAL TODOS [place] TAKE 30 MINS BEFORE BREAKFAST, # 90 capsule, 0 Refills, Maintenance, 02/21/23 15:11:00 EDT, [id number], 162.6, cm, 01/12/23 14:53:00 EDT, Height Start Date: 02/21/23 Status: Ordered loratadine 10 mg oral tablet See Instructions, TOME KARL TABLETA POR VIA ORAL TODOS [place] CUANDO SEA NECESARIO ALLERGY SYMPTOMS, # 30 tablet, Refills 5, Maintenance, 11/13/22 16:18:00 EDT, Instructions Replace Required Details, Route to Pharmacy Electronically, [id number],... Start Date: 11/13/22 Status: Ordered metroNIDAZOLE 0.75% topical gel 1 application, Topically, 2 times a day, Apply a thin film to affected area after washing., # 45 Gm, 11 Refills, Maintenance, Rosacea, 01/12/23 17:32:00 EDT, [facility]/pharmacy #1026, 1 application Topically 2 times a day,Instr:Apply a thin film to affected... Start Date: 01/12/23 Status: Ordered naphazoline 0.012% ophthalmic solution 1-2 drops, Eyes, Both, 4 times a day, PRN Red eyes, Getting [id number]???name: Clear eyes, # 15 mL, 0 Refills, Maintenance, 03/31/23 13:56:00 EDT, . Start Date: 03/31/23 Status: Ordered nortriptyline 10 mg oral capsule 10 mg, 1, capsule, By Mouth, Daily at bedtime, # 30 capsule, Refills 2, Tot. 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 2correction date food esophagus impactation is [...] Team Personnel Name: Daron Allen RN Position: [facility] RN Member Role: Primary Care Nurse Name: Zhang Benitez MD Position: [facility] Physician - Primary Care Member Role: PCP Address: Address: [address] [place] [address]- Care Team Related Persons Name: DOMINGO ELIAS Name: BRANDY ROBERSON Address: [address] [address] Name: PT STATES, NO ONE
--- OUTSIDE RECORDS SUMMARY | 2023-05-24 11:04 | XMS_ITS | Continuity of Care Document ---
Author Name Unknown Organization [facility] Address [address] [place] [address]- Care Team Providers Care Supervisor Lens Generating Name Role Phone Emmanuel CARRILLO, Zhang Primary Care Physician Encounter [facility] Date(s): 03/09/23 - 04/08/23 [facility] [address] [place] [address]- Attending Physician: Mychal De Anda Admitting Physician: Mychal De Anda Referring Physician: AdmtrMychal Allergies, Adverse Reactions, Alerts Substance Reaction Severity Status penicillin Active Immunizations Given and Recorded Vaccine Date Status Refusal Reason influenza virus vaccine, inactivated 07/13/22 Give n influenza virus vaccine, inactivated 04/23/21 Anival rded influenza virus vaccine, inactivated 05/17/18 Give n influenza virus vaccine, inactivated 06/30/16 Give n [id number] bivalent booster vax 07/09/22 Recorded SARS-CoV-2 (COVID-19) [...] Status: Ordered dexamethasone/neomycin/polymyxin B ophthalmic 1 mg-3.5 mg-58910 u/gm ointment 1 application, Eyes, Both, 3 times a day, for 30 days, as needed for itchiness, # 3.5 Gm, 0 Refills, Acute 04/30/23 12:53:00 EDT, 03/31/23 12:53:00 EDT, Ophth Ointment, [facility]/pharmacy #1026, Partial fill upon patient request if the prescription is for a... Start Date: 03/31/23 Stop Date: 04/30/23 Status: Ordered diclofenac 1% topical gel = 2 Gm, Topically, 4 times a day, # 100 Gm, 5 Refills, Maintenance, 04/07/23 15:40:00 EDT, Gel, [facility]/pharmacy #1026, ., 162.6, cm, 04/07/23 9:53:00 EDT, [...] 11 Refills, Maintenance, 01/12/23 17:33:00 EDT, [facility]/pharmacy #1026, 30, SPRAY 2 SPRAYS INTO EACH NOSTRIL TODOS [place], 162.6, cm, 01/12/23 14:53:00 EDT, Height Start Date: 01/12/23 Status: Ordered gabapentin 300 mg oral capsule 300 mg, 1, capsule, By Mouth, Daily, PRN, # 30 capsule, Refills 5, Tot. Refills 5, Maintenance, Pain , Moderate, 04/07/23 17:49:00 EDT, Route to Pharmacy Electronically, [facility]/pharmacy #1026, 162.6, cm, 04/07/23 9:53:00 EDT, Height Start Date: 04/07/23 Status: Ordered hydrocortisone 1% topical cream 1 application, Topically, 2 times a day, EYE LIDS AVOID GETTING IN EYES LABEL IN [place], # 30 Gm, 0 Refills, Maintenance, 03/18/23 13:43:00 EDT, Cream, [facility]/pharmacy #1026, Partial fill upon patient request if the prescription is for a schedule II o... Start Date: 03/18/23 Status: Ordered lansoprazole 15 mg oral enteric coated capsule See Instructions, TOME 1 CAPSULA POR VIA ORAL TODOS [place] TAKE 30 MINS BEFORE BREAKFAST, # 90 capsule, 0 Refills, Maintenance, 02/21/23 15:11:00 EDT, [facility], 162.6, cm, 01/12/23 14:53:00 EDT, Height Start Date: 02/21/23 Status: Ordered loratadine 10 mg oral tablet See Instructions, TOME KARL TABLETA POR VIA ORAL TODOS [place] CUANDO SEA NECESARIO ALLERGY SYMPTOMS, # 30 tablet, Refills 5, Maintenance, 11/13/22 16:18:00 EDT, Instructions Replace Required Details, Route to Pharmacy Electronically, [facility],... Start Date: 11/13/22 Status: Ordered metroNIDAZOLE 0.75% topical gel 1 application, Topically, 2 times a day, Apply a thin film to affected area after washing., # 45 Gm, 11 Refills, Maintenance, Rosacea, 01/12/23 17:32:00 EDT, [facility]/pharmacy #1026, 1 application Topically 2 times a day,Instr:Apply a thin film to affected... Start Date: 01/12/23 Status: Ordered naphazoline 0.012% ophthalmic solution 1-2 drops, Eyes, Both, 4 times a day, PRN Red eyes, Getting [id number]???name: Clear eyes, # 15 mL, 0 Refills, Maintenance, 03/31/23 13:56:00 EDT, . Start Date: 03/31/23 Status: Ordered nortriptyline 10 mg oral capsule 10 mg, 1, capsule, By Mouth, Daily at bedtime, # 30 capsule, Refills 2, Tot. Refills 2, Maintenance, 04/07/23 11:01:00 EDT, Route to Pharmacy Electronically, [facility]/pharmacy #1026, Partial fill upon patient request if [...] Every 4 hours, PRN Cough, label in danish, # 180 mL, 1 Refills, Maintenance, 12/01/22 17:23:00 EDT, [facility], Partial fill upon patient request if [...] 07/07/23 16:35:00 EST, 07/12/22 16:35:00 EST, [facility]/pharmacy #1026, 162.6, cm, 05/06/22 10:10:00 EDT, Height, [...] of left hip joint Confirmed Active [facility] Care Management Program Cell Attendant Fransisco Oswaldo [phone] Confirmed Active 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 11 Confirmed Active Rosacea, acne Confirmed Active Chronic pain of both shoulders Confirmed Active Tear of meniscus of left knee 12 Confirmed 12/2015 Active Tension headache Confirmed 11/15/08 Active 1diagnosed at [facility] 2correction date food esophagus impactation is 06/30/12 3EGD 06/30/14: food impactation Neg breath test for H Pylori 5By Esteban Colby MD 11/25/11 EGD Impressions: Normal mucosa in the esophagus.Erythema and congestion in the antrum compatible with gastritis (biopsy- pos H Pylori). Normal mucosa in the duodenum. 6mild right by mammogram on 2/2/07 7by serology 8by GI assessment 92/11/19 Sleep study Obstructive sleep apnea, mild; Hypoxia [...] Primary Care Member Role: PCP Address: Address: [address] [place] [address]- Care Team Related Persons Name: DOMINGO ELIAS Name: BRANDY ROBERSON Address: [place] [address] Name: PT STATES, NO ONE
--- OUTSIDE RECORDS SUMMARY | 2023-05-24 11:05 | XMS_ITS | Continuity of Care Document ---
Author Name Unknown Organization [facility] Address [address] [place] [address]- Care Team Providers Care Pediatric Anesthesiologist Name Role Phone Emmanuel CARRILLO, Zhang Primary Care Physician En[facility] Date(s): 04/13/23 - 04/20/23 [facility] [address] [place] [address]- Encounter Diagnosis Allergic rhinitis(Discharge Diagnosis) - 04/13/23 Attending Physician: Melony Thomson MD Referring Physician: Zhang Benitez MD Allergies, Adverse Reactions, Alerts Substance Reaction Severity Status penicillin Active Immunizations Given and Recorded Vaccine Date Status Refusal Reason influenza virus vaccine, inactivated 07/13/22 Give n influenza virus vaccine, inactivated 04/23/21 Anival rded influenza virus vaccine, inactivated 05/17/18 Give n influenza virus vaccine, inactivated 06/30/16 Give n [id number] bivalent booster vax 07/09/22 Recorded SARS-CoV-2 (COVID-19) mRNA-1273 vaccine 1 12/24/21 Recorded SARS-CoV-2 (COVID-19) mRNA-1273 vaccine 06/16/21 R ecorded SARS-CoV-2 (COVID-19) mRNA-1273 vaccine 11/19/20 R ecorded SARS-CoV-2 (COVID-19) mRNA-1273 vaccine 10/22/20 R ecorded zoster vaccine, inactivated 05/28/21 Given zoster vaccine, inactivated 05/22/20 Recorded tetanus-diphtheria toxoids (Td) 05/28/21 Given pneumococcal 13-valent vaccine 10/21/21 Given Influenza Virus Vaccine (oldterm) 05/22/20 Recorde d Influenza Virus Vaccine (oldterm) 05/17/19 Recorde d tetanus/diphtheria/pertussis, acel(Tdap) 2 09/03/09 Given hepatitis B adult vaccine 3 09/03/09 Given hepatitis B adult vaccine 4 06/05/08 Given hepatitis B adult vaccine 5 03/13/07 Given hepatitis B adult vaccine 6 10/10/06 Given hepatitis B adult vaccine 7 09/14/06 Given 1Result Comment: [facility] 2Admin Note: ADACEL VIS 06/25/08 GIVEN 3Admin Note: VIS 02/22/07 GIVEN 4Admin Note: VIS 02/22/07 given 5Admin Note: Hep B # 3 VIS 02/15/01 6Admin Note: HEP B # 2 VIS 02/15/2001 7Admin Note: VIS 02/05 HEP B #1 Medications buPROPion 150 mg/12 hours (SR) oral tablet, extended release 2 tablet = 300 mg, By Mouth, Daily, given by psychNeil, # 60 tablet, 0 Refills, Maintenance, 01/31/17 [...] 0 Refills, Maintenance, 04/13/23 12:35:00 EDT, Tablet, [facility]/pharmacy #[id number], Partial fill upon patient request [...] Status: Ordered dexamethasone/neomycin/polymyxin B ophthalmic 1 mg-3.5 mg-88269 u/gm ointment 1 application, Eyes, Both, 3 times a day, for 30 days, as needed for itchiness, # 3.5 Gm, 0 Refills, Acute 04/30/23 12:53:00 EDT, 03/31/23 12:53:00 EDT, Ophth Ointment, [id number], Partial fill upon patient request [...] Instructions, SPRAY 2 SPRAYS INTO EACH NOSTRIL RAY COLON, # 16 mL, 11 Refills, Maintenance, 01/12/23 17:33:00 EDT, [id number], 30, SPRAY 2 SPRAYS INTO EACH NOSTRIL TODOS [employer], 162.6, cm, 01/12/23 14:53:00 EDT, Height Start Date: 01/12/23 Status: Ordered gabapentin 300 mg oral capsule 300 mg, 1, capsule, By Mouth, Daily, PRN, # 30 capsule, Refills 5, Tot. Refills 5, Maintenance, Pain , Moderate, 04/07/23 17:49:00 EDT, Route to Pharmacy Electronically, [facility]/pharmacy #[id number], 162.6, cm, 04/07/23 9:53:00 EDT, Height Start Date: 04/07/23 Status: Ordered hydrocortisone 1% topical cream 1 application, Topically, 2 times a day, EYE LIDS AVOID GETTING IN EYES LABEL IN LIBERIAN, # 30 Gm, 0 Refills, Maintenance, 03/18/23 13:43:00 EDT, Cream, [facility]/pharmacy #[id number], Partial fill upon patient request if the prescription is for a schedule II o... Start Date: 03/18/23 Status: Ordered lansoprazole 15 mg oral enteric coated capsule See Instructions, TOME 1 CAPSULA POR VIA ORAL TODOS [place] TAKE 30 MINS BEFORE BREAKFAST, # 90 capsule, 0 Refills, Maintenance, 02/21/23 15:11:00 EDT, [id number], 162.6, cm, 01/12/23 14:53:00 EDT, Height Start Date: 02/21/23 Status: Ordered loratadine 10 mg oral tablet See Instructions, TOME KARL TABLETA POR VIA ORAL TODOS [place] CUANDO SEA NECESARIO ALLERGY SYMPTOMS, # 30 tablet, Refills 5, Maintenance, 11/13/22 16:18:00 EDT, Instructions Replace Required Details, Route to Pharmacy Electronically, [id number],... Start Date: 11/13/22 Status: Ordered metroNIDAZOLE 0.75% topical gel 1 application, Topically, 2 times a day, Apply a thin film to affected area after washing., # 45 Gm, 11 Refills, Maintenance, Rosacea, 01/12/23 17:32:00 EDT, [facility]/pharmacy #1026, 1 application Topically 2 times a day,Instr:Apply a thin film to affected... Start Date: 01/12/23 Status: Ordered naphazoline 0.012% ophthalmic solution 1-2 drops, Eyes, Both, 4 times a day, PRN Red eyes, Getting renj-jgv-tkyfhyn???name: Clear eyes, # 15 mL, 0 Refills, Maintenance, 03/31/23 13:56:00 EDT, . Start Date: 03/31/23 Status: Ordered nortriptyline 10 mg oral capsule 10 mg, 1, capsule, By Mouth, Daily at bedtime, # 30 capsule, Refills 2, Tot. Refills 2, Maintenance, 04/07/23 11:01:00 EDT, Route to Pharmacy Electronically, [facility]/pharmacy #1026, Partial fill upon patient request [...] Every 4 hours, PRN Cough, label in japanese, # 180 mL, 1 Refills, Maintenance, 12/01/22 17:23:00 EDT, [facility], Partial fill upon patient request if [...] Stop 07/07/23 16:35:00 EST, 07/12/22 16:35:00 EST, [facility]/pharmacy #[id number], 162.6, cm, 05/06/22 10:10:00 EDT, [...] Confirmed Active [facility]CP [facility] Care Management Program Environmental Department Manager Fransisco Chacon [phone] Confirmed Active 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 11 Confirmed Active Rosacea, acne Confirmed Active Chronic pain of both shoulders Confirmed Active Tear of meniscus of left knee 12 Confirmed 12/2015 Active Tension headache Confirmed 11/15/08 Active 1diagnosed at [facility] 2correction date food esophagus impactation [...] Diagnosis Diagnosis Type Effective Dates Health Status Cl inical Service Informant Allergic rhinitis Discharge Diagnosis 04/13/23 Vital Signs Most recent to oldest [Reference Range]: 1 Height 162.6 cm (04/13/23 12:15 PM) Oxygen Saturation [94-100 %] 94 % (04/13/23 12:15 PM) Pulse Rate [55-90 bpm] 75 bpm (04/13/23 12:15 PM) Blood Pressure [90-138/55-84 mm Hg] 117/ 63mm Hg (04/13/23 12:15 PM) Respiratory Rate [16-30 br/min] 24 br/mi n (04/13/23 12:15 PM) Temperature [96.8-100.4 DegF] 97.1 DegF (04/13/23 12:15 PM) Mode of Delivery (Oxygen) Room air (04/13/23 12:15 PM) Blood pressure sites Arm, left (04/13/23 12:15 PM) Temperature Route Temporal (04/13/23 12:15 PM) Social History Social History Type Response Smoking Status Former smoker, quit more than 30 days ago entered on: 03/29/22 Sex Note * Ofelia Ryan: PERFORM, SIGN, VERIFY Event Display: Patient Education/Instruction Authored Date: [id number] [facility] *[facility] Clinical Summary Name EJ ELIAS Age 62 Years 1960 PCP Emmanuel CARRILLO, Zhang PCP Visit Date 04/13/2023 11:23:00 Additional Instructions: Scheduled Appointments?? Future Appointments ?[address]??[place],??[place],??[address] ?Phone:??[phone]?Fax:??-- ?Appt. Date:??04/28/2023?9:15 AM ?Scheduled Provider:??[address] ?[facility] [address]??[place],??[place],??[address] ?Phone:??[phone]?Fax:??-- ?Appt. Date:??05/03/2023?10:30 AM ?Scheduled Provider:??[facility] 3T Follow-Up Instructions ?? Diagnosis Allergic rhinitis, unspecified Medications: Please continue your medications until treatment is completed or stopped by your provider. Discuss any questions related to medications with your provider. New Medications [id number], [address] [place], [place] [id number], [phone] Cetirizine (cetirizine 10 mg oral tablet) 1 tab(s) Oral Daily as needed allergy symptoms. Refills: 0. Next Dose: Medications to Continue with No Changes These medications were not printed or sent to your pharmacy BuPROpion (buPROPion 150 mg/12 hours (SR) oral tablet, extended release) 2 tab(s) Oral Daily. givenby Neil avendano. Next Dose: BusPIRone (busPIRone 10 mg oral tablet) 1 tab(s) Oral 3 times a day. As needed Patient is still taking from prior psychiatrist prescription, Radha Cueva. Next Dose: Cholecalciferol (Vitamin D3 1000 intl units oral tablet) 1 tab(s) Oral Daily for 30 Days. Refills: 11. Next Dose: Clonazepam (clonazePAM 0.5 mg oral tablet) 1-2 tablet Oral twice a day. As needed Given by Neil avendano. Next Dose: Dexameth/Neomycin/Polymyxin B ophthalmic (dexamethasone/neomycin/polymyxin B ophthalmic 1 mg-3.5 mg-98046 u/gm ointment) 1 eugenio Both eyes 3 times a day for 30 Days. as needed for itchiness. Refills: 0. Next Dose: Diclofenac Topical (diclofenac 1% topical gel) 2 gram Topically 4 times a day for 14 Days. Refills:5. Next Dose: Durable Medical Equipment (right custom AFO) right foot drop. Refills: 0. Next Dose: Emtricitabine-Tenofovir (Descovy 200 mg-25 mg oral tablet) 1 tab(s) Oral Daily. Refills: 6. Next Dose: Finasteride (finasteride 5 mg oral tablet) 1 tab(s) Oral Daily. Given by urologist, Dr. Pasquale Merrill. Next Dose: Fluoxetine (FLUoxetine 10 mg oral capsule) 1 capsule Oral Daily. given by psych, Neil Balderas. Next Dose: Fluticasone Nasal (fluticasone 50 mcg/inh nasal spray) SPRAY 2 SPRAYS INTO EACH NOSTRIL TODOS [place]. Refills: 11. Next Dose: Gabapentin (gabapentin 300 mg oral capsule) 1 capsule Oral Daily as needed Pain , Moderate. Refills: 5. Next Dose: Guaifenesin/Dextromethorphan (Robitussin Cough + Chest Congestion DM Maximum Strength 20 mg-400 mg/20 mL oral liquid) 20 Milliliter Oral every 4 hours as needed Cough. label in japanese. Refills: 1. Next Dose: Hydrocortisone Topical (hydrocortisone 1% topical cream) 1 eugenio Topically twice a day. EYE LIDS AVOID GETTING IN EYES LABEL IN LIBERIAN. Refills: 0. Next Dose: Lansoprazole (lansoprazole 15 mg oral enteric coated capsule) TOME 1 CAPSULA POR VIA ORAL TODOS LOSDIAS TAKE 30 MINS BEFORE BREAKFAST. Refills: 0. Next Dose: Loratadine (loratadine 10 mg oral tablet) TOME KARL TABLETA POR VIA ORAL TODOS [place] CUANDO SEA NECESARIO ALLERGY SYMPTOMS. Refills: 5. Next Dose: Metronidazole Topical (metroNIDAZOLE 0.75% topical gel) 1 eugenio Topically twice a day. Apply a thin film to affected area after washing.. Refills: 11. Next Dose: Naphazoline Ophthalmic (naphazoline 0.012% ophthalmic solution) 1-2 drops Both eyes 4 times a day as needed Red eyes. Getting gvgb-pak-btipsyz???name: Clear eyes. Next Dose: Nortriptyline (nortriptyline 10 mg oral capsule) 1 capsule Oral Daily at Bedtime. Refills: 2. Next Dose: Oxybutynin (oxybutynin 5 mg/24 hours oral tablet, extended release) 1 tab(s) Oral Daily. Given by urologist, Dr. Pasquale Merrill. Next Dose: Quetiapine (QUEtiapine 300 mg oral tablet) 1 tab(s) Oral Daily at Bedtime. Given by psychiatrist, Neil Balderas. Next Dose: tadalafil (tadalafil 5 mg oral tablet) 1 tab(s) Oral Daily. 1 hour before sexual activity Given by urologist, Dr. Pasquale Merrill. Next Dose: Zolpidem (zolpidem 10 mg oral tablet) 1 tab(s) Oral Daily at Bedtime. given by psychNeil. Next Dose: Allergy Info:?? penicillin Medications Given This Visit Future Orders ?No future orders Vital Signs Height 162.6 cm Weight BMI Blood Pressure 117 mm Hg/63 mm Hg Temperature 97.1 DegF Pulse Rate 75 bpm Respiratory Rate 24 br/min 02 Sat Mode of Delivery 94 %/Room air You can now view a summary of your hospital visit from the comfort of your home through a free online portal called [employer]. [employer] is a website that allows you to securely view your medical information including discharge summary, medications and follow-up visits. ??You can alsosend a secure electronic message to your doctor???s office to request appointments, renew medications or just ask a question. You can enroll at [email or web address] or register during your next office visit. [...] primary care provider, you may find a [facility] provider by calling [facility] Targeting Link at [phone]. [facility], in keeping with [facility] guidance, no longer requires face masks for staff, patientsor visitors in most situations. Similar to time spent indoors at other locations, there is the chance that you were exposed to respiratory viruses during your time with us (such as flu or COVID-19).? If you develop symptoms concerning for a viral respiratory infection, please seek testing (and treatment if indicated) from your medical provider or home test kit. For information about the plan of care [...] Care Nurse Name: Zhang Benitez MD Position: S Physician - Primary Care Member Role: PCP Address: Address: [address] [place] [address]- Care Team Related Persons Name: DOMINGO ELIAS Name: BRANDY ROBERSON Address: home [address] [place] [id number] Name: PT STATES, NO ONE
--- OUTSIDE RECORDS SUMMARY | 2023-05-24 11:05 | XMS_ITS | Continuity of Care Document ---
Author Name Unknown Organization [facility] Address [address] [place] [address]- Care Team Providers Care Granite Sandblaster Apprentice Name Role Phone Zhang Benitez MD Primary Care Physician Encounter [facility] Date(s): 12/30/22 - 01/29/23 [facility]/[place] [address]- [place] Allergies, Adverse Reactions, Alerts Substance Reaction Severity Status penicillin Active Immunizations Given and Recorded Vaccine Date Status Refusal Reason influenza virus vaccine, inactivated 07/13/22 Give n influenza virus vaccine, inactivated 04/23/21 Anival rded influenza virus vaccine, inactivated 05/17/18 Give n influenza virus vaccine, inactivated 06/30/16 Give n [id number] bivalent booster vax 07/09/22 Recorded SARS-CoV-2 (COVID-19) [...] Refills, Maintenance, 12/12/22 21:40:00 EDT, [facility], 162.6, cm, 11/19/22 11:04:00 EDT, Height Start Date: 12/12/22 Status: Ordered cetirizine 10 mg oral tablet 1 tablet = 10 mg, By Mouth, Daily, In place of Loratadine label in kosovan, # 30 tablet, 1 Refills,Maintenance, 11/10/22 11:58:00 EDT, Tablet, [facility]/pharmacy #1026, [...] 0 Refills, Maintenance, 04/29/22 15:30:00 EDT, Tablet, [facility]/pharmacy #1026, [...] Refills, Maintenance, 11/23/22 7:43:00 EDT, [facility], 162.6, cm, 11/19/22 11:04:00 EDT, Height, 81.1, [...] Pharmacy Electronically, [facility] STORE [id number],... Start Date: 11/13/22 Status: Ordered metroNIDAZOLE 0.75% [...] Every 4 hours, PRN Cough, label in kosovan, # 180 mL, 1 Refills, Maintenance, 12/01/22 17:23:00 EDT, [facility], Partial fill upon patient request [...] times a day, Take before meal ; kosovan, # 120 tablet, 11 Refills, Maintenance, 06/01/21 [...] at bedtime, given by psych, Lorie Castano RABBLE FURNACE TENDER, 0 Refills, Maintenance, 06/19/15 14:48:48 Start Date: [...] of left hip joint Confirmed Active [facility] Care Management Program Edge Trimmer Fransisco Chacon [phone] Confirmed Active 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 11 Confirmed Active Rosacea, acne Confirmed Active Chronic pain of both shoulders Confirmed Active Positive serology for syphilis Confirmed Active Tear of meniscus of left knee 12 Confirmed 12/2015 Active Tension headache Confirmed 11/15/08 Active 1diagnosed at [facility] 2correction date food esophagus impactation [...] Care Nurse Name: Zhang Benitez MD Position: [facility] Physician - Primary Care Member Role: PCP Address: Address: [address] [place] [id number]- Care Team Related Persons Name: DOMINGO ELIAS Name: BRANDY ROBERSON Address: home [address] [place] [address] Name: PT STATES, NO ONE
--- OUTSIDE RECORDS SUMMARY | 2023-05-24 11:05 | XMS_ITS | Continuity of Care Document ---
Author Name Unknown Organization [facility] Address [address] [place] [address]- Care Team Providers Care Sap Bw Developer Name Role Phone Zhang Benitez MD Primary Care Physician Encounter [facility] Date(s): 12/30/22 - 01/29/23 [facility]/[place] [address]- [place] Allergies, Adverse Reactions, Alerts Substance Reaction Severity Status penicillin Active Immunizations Given and Recorded Vaccine Date Status Refusal Reason influenza virus vaccine, inactivated 07/13/22 Give n influenza virus vaccine, inactivated 04/23/21 Anival rded influenza virus vaccine, inactivated 05/17/18 Give n influenza virus vaccine, inactivated 06/30/16 Give n [id number] bivalent booster vax 07/09/22 Recorded SARS-CoV-2 (COVID-19) [...] Gm, 11 Refills, Maintenance, 05/28/21 12:56:00 EDT, [facility]/pharmacy #1026, 1 applicator Topically 2 times [...] tablet, 1 Refills, Maintenance, 11/04/21 1:02:00 EDT, [facility]/pharmacy #1026, 162.6, cm, 10/29/21 10:19:00 EDT, Height, 81.1, kg, 11/24/2110:26:00 EDT, Dry Weight Start Date: 11/04/21 Stop Date: 01/03/22 Status: Ordered celecoxib 200 mg oral capsule 1 capsule, By Mouth, 2 times a day, PRN NEEDED FOR PAIN WITH FOOD DISCONTINUE MELOXICAM, # 60 capsule, 0 Refills, Maintenance, 12/12/22 21:40:00 EDT, [facility], 162.6, cm, 11/19/22 11:04:00 EDT, Height Start Date: 12/12/22 Status: Ordered cetirizine 10 mg oral tablet 1 tablet = 10 mg, By Mouth, Daily, In place of Loratadine label in solomon islander, # 30 tablet, 1 Refills,Maintenance, 11/10/22 11:58:00 EDT, Tablet, [facility]/pharmacy #1026, Partial fill upon patient request [...] 0 Refills, Maintenance, 04/29/22 15:30:00 EDT, Tablet, [facility]/pharmacy #1026, Partial fill upon patient request if the prescription is for... Start Date: 04/29/22 Stop Date: 05/27/22 Status: Ordered emtricitabine-tenofovir disoproxil 200 mg-300 mg oral tablet 1 tablet, By Mouth, Daily, for post-exposure prophylaxis take with dolutegravir, # 28 tablet, 0 Refills, Maintenance, 04/29/22 15:30:00 EDT, [facility]/pharmacy #1026, Partial fill upon patient request [...] mL, 11 Refills, Maintenance, 01/12/23 17:33:00 EDT, [facility]/pharmacy #1026, 30, SPRAY 2 SPRAYS INTO EACH NOSTRIL TODOS [place], 162.6, cm, 01/12/23 14:53:00 EDT, Height Start Date: 01/12/23 Status: Ordered gabapentin 400 mg oral capsule See Instructions, TOME KARL CAPSULA POR VIA ORAL VICTORIA VECES AL DACIA, # 90 capsule, Refills 11, Tot. Refills 11, 11/06/19 14:40:00 EDT, Instructions Replace Required Details, Route to Pharmacy Electronically, [facility]/pharmacy #1026, 162.56, cm, 10/18/19 10:4... Start Date: 11/06/19 Status: Ordered lansoprazole 15 mg oral enteric coated capsule See Instructions, TOME 1 CAPSULA POR VIA ORAL TODOS [place] TAKE 30 MINS BEFORE BREAKFAST, # 30 capsule, 2 Refills, Maintenance, 11/23/22 7:43:00 EDT, [facility], 162.6, cm, 11/19/22 11:04:00 EDT, Height, 81.1, [...] Replace Required Details, Route to Pharmacy Electronically, [facility] STORE 84259,... Start Date: 11/13/22 Status: Ordered metroNIDAZOLE 0.75% topical gel 1 application, Topically, 2 times a day, Apply a thin film to affected area after washing., # 45 Gm, 11 Refills, Maintenance, Rosacea, 01/12/23 17:32:00 EDT, [facility]/pharmacy #1026, 1 application Topically 2 times a day,Instr:Apply a thin film to affected... Start Date: 01/12/23 Status: Ordered mometasone 0.1% topical cream 1 application, Topically, Daily, apply a thin film in affected area- chest, abdomen, back, # 90 Gm,1 Refills, Maintenance, 10/15/20 22:55:00 EST, Cream, [facility]/pharmacy #1026, 1 application Topically Daily,Instr:apply a thin film in affected area- del... Start Date: 10/15/20 Status: Ordered montelukast 10 mg oral tablet 10 mg, 1, tablet, By Mouth, Daily at bedtime, # 30 tablet, Refills 11, Tot. Refills 11, Maintenance, 10/30/21 14:05:00 EDT, Route to Pharmacy Electronically, [facility]/pharmacy #1026, Partial fill upon patient request if the prescription is for a schedule I... Start Date: 10/30/21 Status: Ordered nitroglycerin 0.4 mg sublingual tablet 1 tablet = 0.4 mg, Sublingual, Every 5 minutes, PRN Chest Pain, (not to exceed 3 doses/15 min--if pain persists, seek medical attention), # 25 tablet, 3 Refills, Maintenance, 11/09/21 16:07:00 EDT, Tablet, [facility]/pharmacy #1026, Partial fill upon patient... Start Date: 11/09/21 Status: Ordered olopatadine 0.1% ophthalmic solution 1 drops, Eyes, Both, 2 times a day, PRN eye allergies, # 5 mL, 11 Refills, Maintenance, 10/28/22 10:43:00 EDT, Ophth Solution, [facility]/pharmacy #1026, ., 1 drops Eyes, Both [...] mL, 1 Refills, Maintenance, 12/01/22 17:23:00 EDT, [facility], Partial fill upon patient request if [...] times a day, Take before meal ; solomon islander, # 120 tablet, 11 Refills, Maintenance, 06/01/21 13:40:00 EDT, [facility]/pharmacy #1026, 162.6, cm, 05/28/21 11:04:00 EDT, Height, 81.1, kg, 11/24/20 11:26:00 EDT, Dry Weight Start Date: 06/01/21 Status: Ordered tamsulosin 0.4 mg oral capsule 0.4 mg, 1, capsule, By Mouth, Daily, # 30 capsule, Refills 5, Tot. Refills 5, Maintenance, 219:31:00 EDT, Route to Pharmacy Electronically, [facility]/pharmacy #1026, 162.6, cm, 11/24/20 11:22:00 EDT, Height, 81.1, kg, 11/24/20 11:26:00 EDT, Dry Weight Start Date: 12/05/20 Status: Ordered Vitamin D3 1000 intl units oral tablet 1 tablet = 25 mcg, By Mouth, Daily, for 30 days, # 30 tablet, 11 Refills, Physician Stop 07/07/23 16:35:00 EST, 07/12/22 16:35:00 EST, [facility]/pharmacy #1026, 162.6, cm, 05/06/22 10:10:00 EDT, Height, 81.1, kg, 11/24/20 11:26:00 EDT, Dry Weight Start Date: 07/12/22 Stop Date: 07/07/23 Status: Ordered zolpidem 10 mg oral tablet 1 tablet = 10 mg, By Mouth, Daily at bedtime, given by psych, Lorie Castano CHECKING DEPARTMENT SUPERVISOR, 0 Refills, Maintenance, 06/19/15 14:48:48 Start Date: [...] of left hip joint Confirmed Active [facility]CP [facility] Care Management Program Automatic Vulcanizing Operator Fransisco Chacon [phone] Confirmed Active 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 11 Confirmed Active Rosacea, acne Confirmed Active Chronic pain of both shoulders Confirmed Active Positive serology for syphilis Confirmed Active Tear of meniscus of left knee 12 Confirmed 12/2015 Active Tension headache Confirmed 11/15/08 Active 1diagnosed at [facility] 2correction date food esophagus impactation is 06/30/12 3EGD 06/30/14: food impactation Neg breath test for H Pylori 5By Estebna Colby MD 11/25/11 EGD Impressions: Normal mucosa [...] Primary Care Member Role: PCP Address: Address: [address] [place] [address]- Care Team Related Persons Name: DOMINGO ELIAS Name: BRANDY ROBERSON Address: [place] [address] Name: PT STATES, NO ONE
--- OUTSIDE RECORDS SUMMARY | 2023-05-24 11:05 | XMS_ITS | Continuity of Care Document ---
Author Name Unknown Organization [facility] Address [address] [place] [address]- Care Team Providers Care [employer] Senior Sergeant Name Role Phone Emmanuel CARRILLO, Zhang Primary Care Physician Encounter [facility] Date(s): 02/24/23 - 03/26/23 [facility]/[place] [address]- Attending Physician: Ai Trimble MD Admitting Physician: Ai Trimble MD Allergies, Adverse Reactions, Alerts Substance Reaction Severity Status penicillin Active Immunizations Given and Recorded Vaccine Date Status Refusal Reason influenza virus vaccine, inactivated 07/13/22 Give n influenza virus vaccine, inactivated 04/23/21 Anival rded influenza virus vaccine, inactivated 05/17/18 Give n influenza virus vaccine, inactivated 06/30/16 Give n [id number] bivalent booster vax 07/09/22 Recorded SARS-CoV-2 (COVID-19) [...] adult vaccine 7 09/14/06 Given 1Result Comment: [facility] AVLisa 2Admin Note: ADACEL VIS 06/25/08 GIVEN 3Admin Note: VIS 02/22/07 GIVEN 4Admin Note: VIS 02/22/07 given 5Admin Note: Hep B # 3 VIS 02/15/01 6Admin Note: HEP B # 2 VIS 02/15/2001 7Admin Note: VIS 02/05 HEP B #1 Medications ammonium lactate 12% topical cream 1 applicator, Topically, 2 times a day, # 280 Gm, 11 Refills, Maintenance, 05/28/21 12:56:00 EDT, [facility]/pharmacy #[id number], 1 applicator Topically [...] tablet, 1 Refills, Maintenance, 11/04/21 1:02:00 EDT, [facility]/pharmacy #[id number], 162.6, cm, 10/29/21 10:19:00 EDT, Height, 81.1, kg, 11/24/2110:26:00 EDT, Dry Weight Start Date: 11/04/21 Stop Date: 01/03/22 Status: Ordered celecoxib 200 mg oral capsule 1 capsule, By Mouth, 2 times a day, PRN NEEDED FOR PAIN WITH FOOD DISCONTINUE MELOXICAM, # 60 capsule, 0 Refills, Maintenance, 02/16/23 15:28:00 EDT, [id number], 162.6, cm, 01/12/23 14:53:00 EDT, Height Start Date: 02/16/23 Status: Ordered cetirizine 10 mg oral tablet 1 tablet = 10 mg, By Mouth, Daily, In place of Loratadine label in argentine, # 30 tablet, 1 Refills,Maintenance, 11/10/22 11:58:00 EDT, Tablet, [facility]/pharmacy #[id number], Partial fill upon [...] tablet, 0 Refills, Maintenance, 04/29/22 15:30:00 EDT, [facility]/pharmacy #[id number], Partial fill upon [...] CAPSULA POR VIA ORAL VICTORIA VECES AL ADCIA, # 90 capsule, Refills 11, Tot. Refills 11, 11/06/19 14:40:00 EDT, Instructions Replace Required Details, Route to Pharmacy Electronically, [facility]/pharmacy #[id number], 162.56, cm, 10/18/19 10:4... Start Date: 11/06/19 Status: Ordered hydrocortisone 1% topical cream 1 application, Topically, 2 times a day, EYE LIDS AVOID GETTING IN EYES LABEL IN LAO, # 30 Gm, 0 Refills, Maintenance, 03/18/23 [...] Refills, Maintenance, 02/21/23 15:11:00 EDT, [id number], 162.6, cm, 01/12/23 14:53:00 EDT, Height Start [...] Replace Required Details, Route to Pharmacy Electronically, [id number],... Start Date: 11/13/22 Status: Ordered metroNIDAZOLE 0.75% topical gel 1 application, Topically, 2 times a day, Apply a thin film to affected area after washing., # 45 Gm, 11 Refills, Maintenance, Rosacea, 01/12/23 17:32:00 EDT, [facility]/pharmacy #[id number], 1 application Topically [...] 10/30/21 14:05:00 EDT, Route to Pharmacy Electronically, [facility]/pharmacy #[id number], Partial fill upon patient request if the prescription is for a schedule I... Start Date: 10/30/21 Status: Ordered nitroglycerin 0.4 mg sublingual tablet 1 tablet = 0.4 mg, Sublingual, Every 5 minutes, PRN Chest Pain, (not to exceed 3 doses/15 min--if pain persists, seek medical attention), # 25 tablet, 3 Refills, Maintenance, 11/09/21 16:07:00 EDT, Tablet, [facility]/pharmacy #[id number], Partial fill upon patient... Start Date: 11/09/21 Status: Ordered olopatadine 0.1% ophthalmic solution 1 drops, Eyes, Both, 2 times a day, PRN eye allergies, # 5 mL, 11 Refills, Maintenance, 10/28/22 10:43:00 EDT, Ophth Solution, [facility]/pharmacy #[id number], ., 1 drops [...] argentine, # 180 mL, 1 Refills, Maintenance, 12/01/22 17:23:00 EDT, [facility], Partial fill upon patient request if [...] tablet, 11 Refills, Maintenance, 06/01/21 13:40:00 EDT, [facility]/pharmacy #1026, 162.6, cm, 05/28/21 11:04:00 EDT, Height, 81.1, kg, 11/24/20 11:26:00 EDT, Dry Weight Start Date: 06/01/21 Status: Ordered tamsulosin 0.4 mg oral capsule 0.4 mg, 1, capsule, By Mouth, Daily, # 30 capsule, Refills 5, Tot. Refills 5, Maintenance, :31:00 EDT, Route to Pharmacy Electronically, [facility]/pharmacy #[id number], 162.6, cm, 11/24/20 11:22:00 EDT, Height, 81.1, kg, 11/24/20 11:26:00 EDT, Dry Weight Start Date: 12/05/20 Status: Ordered Vitamin D3 1000 intl units oral tablet 1 tablet = 25 mcg, By Mouth, Daily, for 30 days, # 30 tablet, 11 Refills, Physician Stop 07/07/23 16:35:00 EST, 07/12/22 16:35:00 EST, [facility]/pharmacy #1026, 162.6, cm, 05/06/22 [...] of left hip joint Confirmed Active BHCP [facility] Care Management Program Telecom Sales Consultant Fransisco Chacon [phone] Confirmed Active 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 11 Confirmed Active Rosacea, acne Confirmed Active Chronic pain of both shoulders Confirmed Active Positive serology for syphilis Confirmed Active Tear of meniscus of left knee 12 Confirmed 12/2015 Active Tension headache Confirmed 11/15/08 Active 1diagnosed at [facility] 2correction date food esophagus impactation [...] Care Nurse Name: Emmanuel CARRILLO, Zhang Position: [facility] Physician - Primary Care Member Role: PCP Address: Address: [address] [place] [id number]- Care Team Related Persons Name: DOMINGO ELIAS Name: BRANDY ROBERSON Address: [address] [address] Name: STATES, NO ONE
--- OUTSIDE RECORDS SUMMARY | 2023-05-24 11:06 | XMS_ITS | Continuity of Care Document ---
Author Name Unknown Organization [facility] Address [address] [place] [address]- Care Team Providers Care Night Club Manager Name Role Phone Zhang Benitez MD Primary Care Physician Encounter [facility] Date(s): 10/20/22 - 11/19/22 [facility]/[place] [address]- [place] Allergies, Adverse Reactions, Alerts Substance Reaction Severity Status penicillin Active Immunizations Given and Recorded Vaccine Date Status Refusal Reason influenza virus vaccine, inactivated 07/13/22 Give n influenza virus vaccine, inactivated 04/23/21 Anival rded influenza virus vaccine, inactivated 05/17/18 Give n influenza virus vaccine, inactivated 06/30/16 Give n [id number] bivalent booster vax 07/09/22 Recorded SARS-CoV-2 (COVID-19) [...] Gm, 11 Refills, Maintenance, 05/28/21 12:56:00 EDT, [facility]/pharmacy #1026, 1 applicator Topically 2 times a [...] tablet, 1 Refills, Maintenance, 11/04/21 1:02:00 EDT, [facility]/pharmacy #1026, 162.6, cm, 10/29/21 10:19:00 EDT, Height, 81.1, kg, 11/24/2110:26:00 EDT, Dry Weight Start Date: 11/04/21 Stop Date: 01/03/22 Status: Ordered CeleBREX 200 mg oral capsule 1 capsule = 200 mg, By Mouth, 2 times a day, PRN as needed for pain, with food Discontinue meloxicam, # 60 capsule, 2 Refills, Maintenance, 09/01/22 12:03:00 EST, [facility]/pharmacy #1026, Partial fill upon patient request if the prescription is for a sche... Start Date: 09/01/22 Stop Date: 11/30/22 Status: Ordered cetirizine 10 mg oral tablet 1 tablet = 10 mg, By Mouth, Daily, In place of Loratadine label in bermudian, # 30 tablet, 1 Refills,Maintenance, 11/10/22 11:58:00 EDT, Tablet, [facility]/pharmacy #1026, Partial fill upon patient request if the prescription is for a schedule II opioid lorene... Start Date: 11/10/22 Status: Ordered Cipro 500 mg oral tablet 1 tablet = 500 mg, By Mouth, Every 24 hours, for 30 days, # 30 tablet, 0 Refills, Acute 11/27/22 10:31:00 EDT, 10/28/22 10:31:00 EDT, Tablet, [facility]/pharmacy #1026, ., 162.6, cm, 10/28/22 9:39:00 EDT, [...] tablet, 0 Refills, Maintenance, 04/29/22 15:30:00 EDT, [facility], Partial fill upon patient request [...] 5 Refills, Maintenance,07/07/22 19:25:00 EST, [facility], 30, SPRAY 2 SPRAYS INTO EACH NOSTRIL TODOS [place], 162.6,cm, 05/06/22 10:10:00 EDT, Height, 81.1, kg, 11/24/... Start Date: 07/07/22 Status: Ordered gabapentin 400 mg oral capsule See Instructions, TOME KARL CAPSULA POR VIA ORAL VICTORIA VECES AL DACIA, # 90 capsule, Refills 11, Tot. Refills 11, 11/06/19 14:40:00 EDT, Instructions Replace Required Details, Route to Pharmacy Electronically, [facility]/pharmacy #1026, 162.56, cm, 10/18/19 10:4... Start Date: 3/31/20 Status: Ordered ketoconazole 2% topical cream 1 application, Topically, Daily, for 30 days, # 60 Gm, 1 Refills, Acute 12/27/22 10:57:00 EDT, 10/28/22 10:57:00 EDT, Cream, [facility]/pharmacy #1026, Partial fill upon patient request if the prescription is for a schedule II opioid drug., 1 application Top... Start Date: 10/28/22 Stop Date: 12/27/22 Status: Ordered lansoprazole 15 mg oral enteric coated capsule 1 capsule, By Mouth, Daily, INSTR:TAKE 30 MINUTES BEFORE BREAKFAST, # 30 capsule, 2 Refills, [id number], 162.6, cm, 10/29/21 10:19:00 EDT, Height, 81.1, [...] Replace Required Details, Route to Pharmacy Electronically, [id number],... Start Date: 11/13/22 Status: Ordered metroNIDAZOLE 0.75% topical gel 1 application, Topically, 2 times a day, Apply a thin film to affected area after washing., # 45 Gm, 11 Refills, Maintenance, Rosacea, 07/28/22 15:02:00 EST, [facility]/pharmacy #1026, 1 application Topically 2 times a day,Instr:Apply a thin film to affected... Start Date: 07/28/22 Status: Ordered mometasone 0.1% topical cream 1 application, Topically, Daily, apply a thin film in affected area- chest, abdomen, back, # 90 Gm,1 Refills, Maintenance, 10/15/20 22:55:00 EST, Cream, [facility]/pharmacy #1026, 1 application Topically Daily,Instr:apply a thin film in affected area- del... Start Date: 10/15/20 Status: Ordered montelukast 10 mg oral tablet 10 mg, 1, tablet, By Mouth, Daily at bedtime, # 30 tablet, Refills 11, Tot. Refills 11, Maintenance, 10/30/21 14:05:00 EDT, Route to Pharmacy Electronically, [facility]/pharmacy [...] 3 Refills, Maintenance, 11/09/21 16:07:00 EDT, Tablet, [facility]/pharmacy #1026, Partial fill upon patient... Start Date: 11/09/21 Status: Ordered olopatadine 0.1% ophthalmic solution 1 drops, Eyes, Both, 2 times a day, PRN eye allergies, # 5 mL, 11 Refills, Maintenance, 10/28/22 10:43:00 EDT, Ophth Solution, [facility]/pharmacy #1026, ., 1 drops Eyes, Both 2 [...] Every 4 hours, PRN Cough, label in bermudian, # 180 mL, 1 Refills, Maintenance, 11/10/22 11:58:00 EDT, [facility]/pharmacy #1026, Partial fill upon patient [...] times a day, Take before meal ; bermudian, # 120 tablet, 11 Refills, Maintenance, 06/01/21 13:40:00 EDT, [facility]/pharmacy #1026, 162.6, cm, 05/28/21 11:04:00 EDT, Height, 81.1, kg, 11/24/20 11:26:00 EDT, Dry Weight Start Date: 06/01/21 Status: Ordered tamsulosin 0.4 mg oral capsule 0.4 mg, 1, capsule, By Mouth, Daily, # 30 capsule, Refills 5, Tot. Refills 5, Maintenance, :31:00 EDT, Route to Pharmacy Electronically, [facility]/pharmacy #1026, 162.6, cm, 11/24/20 11:22:00 EDT, Height, [...] at bedtime, given by psych, Lorie Castano ROUGHING MILL OPERATOR, 0 Refills, Maintenance, 06/19/15 14:48:48 Start [...] left hip joint Confirmed Active [facility] Care Management Program Housekeeping Coordinator Fransisco Chacon [phone] Confirmed Active 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 11 Confirmed Active Rosacea, acne Confirmed Active Chronic pain of both shoulders Confirmed Active Positive serology for syphilis Confirmed Active Tear of meniscus of left knee 12 Confirmed 12/2015 Active Tension headache Confirmed 11/15/08 Active 1diagnosed at [facility] 2correction date food esophagus impactation is [...] Team Personnel Name: Daron Allen RN Position: [facility] RN Member Role: Primary Care Nurse Name: Zhang Benitez MD Position: [facility] Primary Care Physician Member Role: PCP Address: Address: [address] [place] [address]- Care Team Related Persons Name: DOMINGO ELIAS Name: BRANDY ROBERSON Address: [address] [address] Name: STATES, NO ONE
--- OUTSIDE RECORDS SUMMARY | 2023-05-24 11:06 | XMS_ITS | Continuity of Care Document ---
Author Name Unknown Organization [facility] Address [address] [place] [address]- Care Team Providers Care Rn Clinical Documentation Name Role Phone Zhang Benitez MD Primary Care Physician Encounter [facility] Date(s): 12/30/22 - 01/29/23 [facility] [address]- [place] Allergies, Adverse Reactions, Alerts Substance Reaction Severity Status penicillin Active Immunizations Given and Recorded Vaccine Date Status Refusal Reason influenza virus vaccine, inactivated 07/13/22 Give n influenza virus vaccine, inactivated 04/23/21 Anival rded influenza virus vaccine, inactivated 05/17/18 Give n influenza virus vaccine, inactivated 06/30/16 Give n [id number] bivalent booster vax 07/09/22 Recorded SARS-CoV-2 (COVID-19) [...] Refills, Maintenance, 05/28/21 12:56:00 EDT, [facility]/pharmacy #1026, 1 applicator Topically 2 [...] Refills, Maintenance, 11/04/21 1:02:00 EDT, [facility]/pharmacy #1026, 162.6, cm, 10/29/21 10:19:00 EDT, Height, 81.1, kg, 11/24/2110:26:00 EDT, Dry Weight Start Date: 11/04/21 Stop Date: 01/03/22 Status: Ordered celecoxib 200 mg oral capsule 1 capsule, By Mouth, 2 times a day, PRN NEEDED FOR PAIN WITH FOOD DISCONTINUE MELOXICAM, # 60 capsule, 0 Refills, Maintenance, 12/12/22 21:40:00 EDT, [facility], 162.6, cm, 11/19/22 11:04:00 EDT, Height Start Date: 12/12/22 Status: Ordered cetirizine 10 mg oral tablet 1 tablet = 10 mg, By Mouth, Daily, In place of Loratadine label in turkish, # 30 tablet, 1 Refills,Maintenance, 11/10/22 11:58:00 EDT, Tablet, [facility]/pharmacy #1026, Partial fill upon patient [...] Maintenance, 04/29/22 15:30:00 EDT, Tablet, [facility]/pharmacy #1026, Partial fill upon patient request if the prescription is for... Start Date: 04/29/22 Stop Date: 05/27/22 Status: Ordered emtricitabine-tenofovir disoproxil 200 mg-300 mg oral tablet 1 tablet, By Mouth, Daily, for post-exposure prophylaxis take with dolutegravir, # 28 tablet, 0 Refills, Maintenance, 04/29/22 15:30:00 EDT, [facility]/pharmacy #1026, Partial fill upon patient [...] Refills, Maintenance, 01/12/23 17:33:00 EDT, [facility]/pharmacy #1026, 30, SPRAY 2 SPRAYS INTO EACH NOSTRIL TODOS [place], 162.6, cm, 01/12/23 14:53:00 EDT, Height Start Date: 01/12/23 Status: Ordered gabapentin 400 mg oral capsule See Instructions, TOME KARL CAPSULA POR VIA ORAL VICTORIA VECES AL DACIA, # 90 capsule, Refills 11, Tot. Refills 11, 11/06/19 14:40:00 EDT, Instructions Replace Required Details, Route to Pharmacy Electronically, [facility]/pharmacy #1026, 162.56, cm, 10/18/19 10:4... Start Date: 11/06/19 Status: Ordered lansoprazole 15 mg oral enteric coated capsule See Instructions, TOME 1 CAPSULA POR VIA ORAL TODOS [place] TAKE 30 MINS BEFORE BREAKFAST, # 30 capsule, 2 Refills, Maintenance, 11/23/22 7:43:00 EDT, [facility], 162.6, cm, 11/19/22 11:04:00 EDT, Height, 81.1, [...] Details, Route to Pharmacy Electronically, [id number],... Start Date: 11/13/22 Status: Ordered metroNIDAZOLE 0.75% topical gel 1 application, Topically, 2 times a day, Apply a thin film to affected area after washing., # 45 Gm, 11 Refills, Maintenance, Rosacea, 01/12/23 17:32:00 EDT, [facility]/pharmacy #1026, 1 application Topically 2 times a day,Instr:Apply a thin film to affected... Start Date: 01/12/23 Status: Ordered mometasone 0.1% topical cream 1 application, Topically, Daily, apply a thin film in affected area- chest, abdomen, back, # 90 Gm,1 Refills, Maintenance, 10/15/20 22:55:00 EST, Cream, [facility]/pharmacy #1026, 1 application Topically Daily,Instr:apply a thin film in affected area- del... Start Date: 10/15/20 Status: Ordered montelukast 10 mg oral tablet 10 mg, 1, tablet, By Mouth, Daily at bedtime, # 30 tablet, Refills 11, Tot. Refills 11, Maintenance, 10/30/21 14:05:00 EDT, Route to Pharmacy Electronically, [facility]/pharmacy #1026, Partial fill upon patient request if the prescription is for a schedule I... Start Date: 10/30/21 Status: Ordered nitroglycerin 0.4 mg sublingual tablet 1 tablet = 0.4 mg, Sublingual, Every 5 minutes, PRN Chest Pain, (not to exceed 3 doses/15 min--if pain persists, seek medical attention), # 25 tablet, 3 Refills, Maintenance, 11/09/21 16:07:00 EDT, Tablet, [facility]/pharmacy #1026, Partial fill upon patient... Start Date: 11/09/21 Status: Ordered olopatadine 0.1% ophthalmic solution 1 drops, Eyes, Both, 2 times a day, PRN eye allergies, # 5 mL, 11 Refills, Maintenance, 10/28/22 10:43:00 EDT, Ophth Solution, [facility]/pharmacy #1026, ., 1 drops Eyes, [...] mL, 1 Refills, Maintenance, 12/01/22 17:23:00 EDT, [facility], Partial fill upon patient request if [...] times a day, Take before meal ; turkish, # 120 tablet, 11 Refills, Maintenance, 06/01/21 13:40:00 EDT, [facility]/pharmacy #1026, 162.6, cm, 05/28/21 11:04:00 EDT, Height, 81.1, kg, 11/24/20 11:26:00 EDT, Dry Weight Start Date: 06/01/21 Status: Ordered tamsulosin 0.4 mg oral capsule 0.4 mg, 1, capsule, By Mouth, Daily, # 30 capsule, Refills 5, Tot. Refills 5, Maintenance, 219:31:00 EDT, Route to Pharmacy Electronically, [facility]/pharmacy #1026, 162.6, cm, 11/24/20 11:22:00 EDT, Height, 81.1, kg, 11/24/20 11:26:00 EDT, Dry Weight Start Date: 12/05/20 Status: Ordered Vitamin D3 1000 intl units oral tablet 1 tablet = 25 mcg, By Mouth, Daily, for 30 days, # 30 tablet, 11 Refills, Physician Stop 07/07/23 16:35:00 EST, 07/12/22 16:35:00 EST, 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 11 Confirmed Active Rosacea, acne Confirmed Active Chronic pain of both shoulders Confirmed Active Positive serology for syphilis Confirmed Active Tear of meniscus of left knee 12 Confirmed 12/2015 Active Tension headache Confirmed 11/15/08 Active 1diagnosed at [facility] 2correction date food esophagus impactation [...] Care Nurse Name: Zhang Benitez MD Position: [facility] Physician - Primary Care Member Role: PCP Address: Address: [address] [place] [address]- Care Team Related Persons Name: DOMINGO ELIAS Name: BRANDY ROBERSON Address: home [address] [place] [address] Name: PT STATES, NO ONE
--- OUTSIDE RECORDS SUMMARY | 2023-05-24 11:06 | XMS_ITS | Continuity of Care Document ---
Author Name Unknown Organization [facility] Address [address] [place] [address]- Care Team Providers Care Director Of Software Development Name Role Phone Emmanuel CARRILLO, Zhang Primary Care Physician [place] [facility] [place](s): 03/31/23 - 04/30/23 [facility]/[place] [address]- Attending Physician: Admtr, Mychal Allergies, Adverse Reactions, Alerts Substance Reaction Severity Status penicillin Active Immunizations Given and Recorded Vaccine Date Status Refusal Reason influenza virus vaccine, inactivated 07/13/22 Give n influenza virus vaccine, inactivated 04/23/21 Anival rded influenza virus vaccine, inactivated 05/17/18 Give n influenza virus vaccine, inactivated 06/30/16 Give n [id number] bivalent booster vax 07/09/22 Recorded SARS-CoV-2 (COVID-19) [...] vaccine 7 09/14/06 Given 1Result Comment: [facility] AVLisa 2Admin Note: ADACEL VIS 06/25/08 [...] 0 Refills, Maintenance, 04/13/23 12:35:00 EDT, Tablet, [facility]/pharmacy #[id number], Partial fill upon [...] 5 Refills, Maintenance, 04/07/23 15:40:00 EDT, Gel, [facility]/pharmacy #[id number], ., 162.6, cm, 04/07/23 9:53:00 [...] mL, 11 Refills, Maintenance, 01/12/23 17:33:00 EDT, [facility]/pharmacy #[id number], 30, SPRAY 2 SPRAYS INTO EACH NOSTRIL TODOS [place], 162.6, cm, 01/12/23 14:53:00 EDT, Height Start Date: 01/12/23 Status: Ordered gabapentin 300 mg oral capsule 300 mg, 1, capsule, By Mouth, Daily, PRN, # 30 capsule, Refills 5, Tot. Refills 5, Maintenance, Pain , Moderate, 04/07/23 17:49:00 EDT, Route to Pharmacy Electronically, [facility]/pharmacy #[id number], 162.6, cm, 04/07/23 9:53:00 EDT, Height Start Date: 04/07/23 Status: Ordered hydrocortisone 1% topical cream 1 application, Topically, 2 times a day, EYE LIDS AVOID GETTING IN EYES LABEL IN [place], # 30 Gm, 0 Refills, Maintenance, 03/18/23 13:43:00 EDT, Cream, [facility]/pharmacy #[id number], Partial fill upon patient request if the prescription is for a schedule II o... Start Date: 03/18/23 Status: Ordered lansoprazole 15 mg oral enteric coated capsule See Instructions, TOME 1 CAPSULA POR VIA ORAL TODOS [place] TAKE 30 MINS BEFORE BREAKFAST, # 90 capsule, 0 Refills, Maintenance, 02/21/23 15:11:00 EDT, [id number], 162.6, cm, 01/12/23 14:53:00 EDT, Height Start Date: 02/21/23 Status: Ordered loratadine 10 mg oral tablet See Instructions, TOME KARL TABLETA POR VIA ORAL TODOS [place] CUANDO SEA NECESARIO ALLERGY SYMPTOMS, # 30 tablet, Refills 5, Maintenance, 11/13/22 16:18:00 EDT, Instructions Replace Required Details, Route to Pharmacy Electronically, [id number],... Start Date: 11/13/22 Status: Ordered metroNIDAZOLE 0.75% topical gel 1 application, Topically, 2 times a day, Apply a thin film to affected area after washing., # 45 Gm, 11 Refills, Maintenance, Rosacea, 01/12/23 17:32:00 EDT, [id number], 1 application Topically 2 times a day,Instr:Apply a thin film to affected... Start Date: 01/12/23 Status: Ordered naphazoline 0.012% ophthalmic solution 1-2 drops, Eyes, Both, 4 times a day, PRN Red eyes, Getting yqax-iqs-waqulyt???name: Clear eyes, # 15 mL, 0 Refills, Maintenance, 03/31/23 13:56:00 EDT, . Start Date: 03/31/23 Status: Ordered nortriptyline 10 mg oral capsule 10 mg, 1, capsule, By Mouth, Daily at bedtime, # 30 capsule, Refills 2, Tot. Refills 2, Maintenance, 04/07/23 11:01:00 EDT, Route to Pharmacy Electronically, [facility]/pharmacy #[id number], Partial fill upon [...] Every 4 hours, PRN Cough, label in [place], # 180 mL, 1 Refills, Maintenance, 12/01/22 17:23:00 EDT, [facility], Partial fill upon patient request [...] Stop 07/07/23 16:35:00 EST, 07/12/22 16:35:00 EST, [facility]/pharmacy #[id number], 162.6, cm, 05/06/22 10:10:00 EDT, Height, 81.1, kg, 11/24/20 11:26:00 EDT, Dry Weight Start Date: 07/12/22 Stop Date: 07/07/23 Status: Ordered zolpidem 10 mg oral tablet 1 tablet = 10 mg, By Mouth, Daily at bedtime, given by Neil avendano, 0 Refills, Maintenance, 06/19/15 14:48:48 EST Start [...] of left hip joint Confirmed Active [facility] Care Management Program Legal Transcriber Fransisco Chacon [phone] Confirmed Active 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 Vital Signs Most recent to oldest [Reference Range]: 1 Height 162.56 cm (09/25/18 2:04 PM) Weight 80.6 kg (09/25/18 2:04 PM) Social History Social History Type Response Smoking Status Former smoker, quit more than 30 days ago entered on: 03/29/22 Sex Laboratory * Event Display: Non Lab Results Authored Date: * Zhang Benitez MD: REVIEW Event Display: Non Lab Results Authored Date: Cardiology * Zhang Benitez MD: REVIEW Event Display: Cardiology Office Note, Non-BH Authored Date: US Abdomen * Event Display: Ultrasound Abdomen Authored Date: Radiology * Linda Tejada: PERFORM Event Display: Radiology Results Scanned Authored Date: [id number] * Ana Cristina De La Rosa: PERFORM Event Display: Radiology Results Scanned Authored Date: [id number] Patient Care team information Care Team Personnel Name: Daron Allen RN Position: S RN Member Role: Primary Care Nurse Name: Zhang Benitez MD Position: S Physician - Primary Care Member Role: PCP Address: Address: [address] [place] [address]- Care Team Related Persons Name: DOMINGO ELIAS Name: BRANDY ROBERSON Address: [address] [place] [id number] Name: PT STATES, NO ONE
== END 2023-05-24 11:36 | disposition home or self-care (01) ==
LOC: HO.HUSH 10:56
PROVIDERS: PCP Family Medicine; Visit Provider Urology
DX: N40.1 Benign prostatic hyperplasia with lower urinary tract symptoms (principal); N13.8 Other obstructive and reflux uropathy; C61 Malignant neoplasm of prostate; N52.01 Erectile dysfunction due to arterial insufficiency
CPT/HCPCS: 99214

== ENCOUNTER → 2023-05-24 10:56 | Outpatient (BNVA) | payer OTHER, SELFPAY | PROVIDERS: PCP Family Medicine; Visit Provider Urology | DX: N52.01 Erectile dysfunction due to arterial insufficiency (principal); N40.1 Benign prostatic hyperplasia with lower urinary tract symptoms; N13.8 Other obstructive and reflux uropathy; C61 Malignant neoplasm of prostate | CPT/HCPCS: 51798 ==

== ENCOUNTER 2023-10-07 10:43 | Outpatient (REF) | payer OTHER, SELFPAY ==
[2023-10-07 12:12] LABS: PSA,Total (Free>4and<10) 4.61 ng/mL (0.00-4.00)
[2023-10-10 10:28] LABS: Free Prostate Spec Ag 0.7 ng/mL; Percent Free Prostate Spec Ag 15 % (calc) (>25); Prostate Specific Ag Total 4.7 ng/mL (< OR = 4.0)
== END 2023-10-07 10:44 | disposition home or self-care (01) ==
LOC: HO.LAB 10:43
PROVIDERS: PCP Family Medicine; Visit Provider Urology
DX: C61 Malignant neoplasm of prostate (principal)
CPT/HCPCS: 36415; 84153; 84154

== ENCOUNTER 2023-12-23 10:04 | Outpatient (AMB) | payer OTHER, SELFPAY ==
--- NOTE | 2023-12-23 10:05 | A.OFFVIS_ITS ---
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 Manager Required: Yes Allergies penicillin V Allergy (Intermediate, Verified 12/23/23 10:06) rash Medication List - Last Reconciled 12/23/23 by Pasquale Merrill MD bupropion HCl 150 mg PO DAILY bupropion HCl SR 300 mg PO DAILY cabergoline 0.25 mg PO 2XW cholecalciferol (vitamin D3) 25 mcg PO DAILY clonazepam 0.5 mg PO BID disulfiram mg PO emtricitabine-tenofovir alafen 200-25 mg (Descovy) 1 tab PO DAILY finasteride 5 mg PO DAILY 90 days fluoxetine 10 mg PO DAILY fluticasone propionate 50 mcg/actuation 2 sprays intranasal DAILY gabapentin 400 mg PO DAILY ketoconazole 2% 1 appl topical levofloxacin 500 mg PO daily 3 days olopatadine 0.1% 0 drps ophthalmic (eye) oxybutynin chloride ER 5 mg PO DAILY 30 days quetiapine (Seroquel) 300 mg PO BID sildenafil 100 mg PO ONCE PRN 30 days sildenafil (pulm.hypertension) 20 mg PO DAILY PRN 30 days tadalafil 10 mg PO DAILY 90 days zolpidem 10 mg PO BEDTIME PRN HPI Comments Details: ?Mr Ashley is a very pleasant Botswanan speaking male. He is a patient of Dr. Meyers. He is seen seen in the office today for the following urologic conditions. ?- prostate cancer ?- delayed ejaculation - erectile dysfunction [place]an translation provided in office by qualified medical billing and coding instructor Telemedicine Evaluation 15 min Consultation [employer] Yael Video PSA 4.6 Rise through finasteride Suggest repeat MRI in may need repeat targeted biopsy Requesting refill of generic sildenafil Prostate cancer: 2016 Grade Group 1 ? Prostate cancer was diagnosed?[address] - [address] Moss.? Diagnosis was reached by?needle biopsy, for elevated PSA.? The Jeison grade is?3+3 = 6 reported by patient.? TNM Classification of Malignant Tumours (TNM)?T1c.? The D'Sunny (NCCN) risk category is?Low Risk (PSA< 10, Gl < 7, T1c).? Initial therapy included?Primary treatment, 01/21 Deferred Therapy (active surveillance) ?05/24 Additional treatment, 5AR.? Recent labs included?a PSA (prostate-specific antigen) 06/23 5.2, 12/22 5.8 (not on anything), 02/21 4.4, 07/24 4.3, 01/23 4.5, 07/25 4.7 5AR, 01/24 PSA 8.4, 08/27 PSA 9.2, 01/27 3.0 on 5AR, 10/28 5.0 27% free, 05/30 3.2 5AR, 10/29 4.6 15% ? Recent imaging included?05/24 - MRI 1.2cm PIRADS 3 on left posterior lateral - previously has been offered treatment however he has decided that he would prefer deferred therapy and understands the risks and benefits for possible delay in therapy ? Associated conditions ? erectile dysfunction ?Yes Delayed ejaculation ? Therapeutic plan: Continue surveillance Q 6 month [facility] Surgical History Hx of cholecystectomy Social History Alcohol intake: former Patient Tobacco Use Status: Former Tobacco user Cigarettes Per Day: 40 Review of Systems Const All systems reviewed & are unremarkable except as noted in HPI and below Reports no additional complaints Resp Reports no additional complaints GI Reports no additional complaints Reports as per HPI Musc Reports no additional complaints Physical Exam Telemedicine evaluation Appropriate responses Regular breathing rate and rhythm HEENT Head: Yes normal to inspection Ears: hearing grossly normal bilaterally Eyes General: appearance normal, both eyes and all related structures Neck Neck: Yes normal visual inspection Chest Chest palpation & inspection: normal inspection of the chest Resp Effort & Inspection: normal respiratory effort and able to speak in complete sentences Telehealth Telehealth Telehealth Platform: [facility] Location of provider rendering services: practice address Location of patient: address on file Patient Identification confirmed using: Name, : Yes Telehealth method: video Patient verbally consented to treatment: Yes Patient verbally consented to billing insurance company: Yes Patient informed of any privacy concerns related to visit: Yes Minutes spent on Phone/Video with Pt.: 15 Assessment & Plan Assessment & Plan (1) Prostate cancer: Code(s): C61 - Malignant neoplasm of prostate Category: Medical (2) Erectile dysfunction: Code(s): N52.9 - Male erectile dysfunction, unspecified Category: Medical Qualifiers: Erectile dysfunction type: vasculogenic Vasculogenic erectile dysfunction type: due to arterial insufficiency Qualified Code(s): N52.01 - Erectile dysfunction due to arterial insufficiency Plan Refilled sildenafil Prostate MRI Orders: Orders MR pelvis wo/w con Today C61 - Malignant neoplasm of prostate Blood Urea Nitrogen Today C61 - Malignant neoplasm of prostate Creatinine Today C61 - Malignant neoplasm of prostate Medications: Refilled finasteride 5 mg PO DAILY 90 tabs 1RF 90 days C61 - Malignant neoplasm of prostate, N40.1 - Benign prostatic hyperplasia with lower urinary tract symptoms Patient Instructions: Imaging studies, laboratory and physical exam results were discussed and reviewed in detail. No major barriers to patient understanding were identified. An opportunity to ask questions regarding the treatment plan was provided. All questions were answered. The patient expressed understanding and agreement with the above treatment plan. The patient is aware they should contact our office by phone for worsening of their current condition or the appearance of new urologic symptoms. Compliance is encouraged with any medications and followup testing that is ordered. It is a privilege to participate in the urologic care of your patient. If you have any questions or concerns regarding treatment for the above conditions, or other urologic issues, please do not hesitate to contact me. The office telephone contact is [phone]. This note is constructed using voice recognition software. While every effort has been made to ensure accuracy dinkey operator slate errors may have been included. Yours sincerely, Dr Pasquale Merrill MD, [facility] - Urology Providers of Expert, Compassionate Care for the Genitourinary System Coding Level of Care Code Tele Est Pt Level 4 (96925) Diagnoses Prostate cancer C61 Erectile dysfunction due to arterial insufficiency N52.01 Erectile dysfunction type: vasculogenic Vasculogenic erectile dysfunction type: due to arterial insufficiency
--- OUTSIDE RECORDS SUMMARY | 2023-12-23 10:08 | XMS_ITS | Continuity of Care Document ---
Author Organization [facility] Address [address] [place] [address]- Care Team Providers Care 3Rd Mate Name Role Phone Zhang Benitez MD Primary Care Physician Encounter [facility] [place] Date(s): 10/24/23 - 11/23/23 [facility] [address] [place] [address]- Attending Physician: Mychal De Anda Admitting Physician: Mychal De Anda Referring Physician: AdmMychal ny Allergies, Adverse Reactions, Alerts Substance Reaction Severity Status penicillin Active Immunizations Given and Recorded Vaccine Date Status Refusal Reason influenza virus vaccine, inactivated 07/13/22 Give n influenza virus vaccine, inactivated 04/23/21 Anival rded influenza virus vaccine, inactivated 05/17/18 Give n influenza virus vaccine, inactivated 06/30/16 Give n [id number] bivalent booster vax 07/09/22 Recorded SARS-CoV-2 (COVID-19) [...] adult vaccine 7 09/14/06 Given 1Result Comment: [facility] AVLisa 2Admin Note: ADACEL VIS 06/25/08 GIVEN [...] ER Tablet Start Date: 01/31/17 Status: Ordered cetirizine 10 mg oral tablet 1 tablet = 10 mg, By Mouth, Daily, PRN allergy symptoms, # 90 tablet, 0 Refills, Maintenance, 04/13/23 12:35:00 EDT, Tablet, [facility]/pharmacy #[id number], Partial fill upon patient request if the prescription is for a schedule II opioid drug., 162.6, cm, ... Start Date: 04/13/23 Status: Ordered clonazePAM 0.5 mg oral tablet 1-2 tablet, By Mouth, 2 times a day, As needed Given by Neil avendano, 0 Refills, Maintenance, 11/27/18 9:50:48 EDT, Tablet Start Date: 11/27/18 Status: Ordered Descovy 200 mg-25 mg oral tablet See Instructions, TAKE ONE TABLET BY MOUTH EVERY DAY. if able please dispense 90 day supply, if not evered okay to dispense #30 with 5 refills. thanks , # 90 tablet, 1 Refills, Maintenance, 05/27/23 11:31:00 EDT, [facility]/pharmacy #1026, TAKE ONE T... Start Date: 05/27/23 Status: Ordered diclofenac 1% topical gel = 2 Gm, Topically, 4 times a day, # 100 Gm, 5 Refills, Maintenance, 10/31/23 13:51:00 EDT, Gel, [facility]/pharmacy #[id number], ., 162.6, cm, 10/31/23 11:03:00 EDT, Height Start Date: 10/31/23 Stop Date: 01/23/24 Status: Ordered disulfiram 250 mg oral tablet See Instructions, 2 tablets By Mouth Daily for the first 2 weeks then 1 tablet daily Abstain from any alcohol for at least 12 hours before using Do not drink alcohol Avoid metronidazole, # 120 tablet, 2 Refills, Maintenance, 10/31/23... Start Date: 10/31/23 Status: Ordered finasteride 5 mg oral tablet [...] 11 Refills, Maintenance, 01/12/23 17:33:00 EDT, [facility]/pharmacy #1026, 30, SPRAY 2 SPRAYS INTO EACH NOSTRIL TODOS [place], 162.6, cm, 01/12/23 14:53:00 EDT, Height Start Date: 01/12/23 Status: Ordered gabapentin 300 mg oral capsule 300 mg, 1, capsule, By Mouth, Daily, PRN, # 30 capsule, Refills 1, Tot. Refills 1, Maintenance, Pain , Moderate, 09/22/23 17:53:00 EST, Route to Pharmacy Electronically, [facility],162.6, cm, 07/05/23 13:40:00 EST, Height Start Date: 09/22/23 Status: Ordered lansoprazole 15 mg oral enteric coated capsule See Instructions, TOME 1 CAPSULA POR VIA ORAL TODOS [place] TAKE 30 MINS BEFORE BREAKFAST, # 90 capsule, 3 Refills, Maintenance, 10/31/23 13:59:00 EDT, [facility]/pharmacy #1026, 162.6, cm, 10/31/23 11:03:00 EDT, Height Start Date: 10/31/23 Status: Ordered meloxicam 15 mg oral tablet 1 tablet = 15 mg, By Mouth, Daily, with food Discontinue ibuprofen 800 mg, # 30 tablet, 1 Refills, Maintenance, 10/31/23 13:53:00 EDT, Tablet, [facility]/pharmacy #[id number], Partial fill upon patient request ifthe prescription is for a schedule II opioid lorene... Start Date: 10/31/23 Status: Ordered metroNIDAZOLE 0.75% topical gel 1 application, Topically, 2 times a day, Apply a thin film to affected area after washing., # 45 Gm, 11 Refills, Maintenance, Rosacea, 01/12/23 17:32:00 EDT, [facility]/pharmacy #1026, 1 application Topically 2 times a day,Instr:Apply a thin film to affected... Start Date: 01/12/23 Status: Ordered naphazoline 0.012% ophthalmic solution 1-2 drops, Eyes, Both, 4 times a day, PRN Red eyes, Getting caxu-tfo-nxuevac???name: Clear eyes, # 15 mL, 0 Refills, Maintenance, 03/31/23 13:56:00 EDT, . Start Date: 03/31/23 Status: Ordered nortriptyline 10 mg oral capsule 10 mg, 1, capsule, By Mouth, Daily at bedtime, # 30 capsule, Refills 2, Tot. Refills 2, Maintenance, 04/07/23 11:01:00 EDT, Route to Pharmacy Electronically, [facility]/pharmacy #[id number], Partial fill upon patient request if [...] EDT, Compound Start Date: 10/28/22 Status: Ordered sildenafil 100 mg oral tablet 1 tablet = 100 mg, By Mouth, Daily, 1 hour before sexual activity Prescribed by Garfield Giordano, # 30 tablet, 0 Refills, Maintenance, 10/31/23 8:14:00 EDT, Tablet Start Date: 10/31/23 Status: Ordered Silvadene 1% cream 1 applicator, Topically, 2 times a day, # 50 Gm, 0 Refills, Acute 12/15/23 14:02:00 EDT, 10/31/23 14:00:00 EDT, [facility]/pharmacy #1026, Partial fill upon patient request if the prescription is for a schedule II opioid drug., 1 applicator Topically 2 times... Start Date: 10/31/23 Stop Date: 12/15/23 Status: Ordered Vitamin D3 1000 intl units oral tablet 1 tablet = 1,000 International_Units, By Mouth, Daily, # 90 tablet, 3 Refills, Maintenance, 10/31/23 14:08:00 EDT, [facility], ., 162.6, cm, 10/31/23 11:03:00 EDT, Height Start Date: 10/31/23 Stop Date: 10/25/24 Status: Ordered Walker See Instructions, # 1 each, Maintenance, Four wheeled walker with seat and handbrakes Dx right footdrop M21.37 1, right foot pain M79.67 1, right foot sprain S93.601A, osteopathy of right foot afterpoliomyelitis M89.671, gait instability R26.81,... 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 Periodic limb movements of sleep 11From fall on December 2015. Dx by MRI [...] Primary Care Member Role: PCP Address: Address: [address] [place] [address]- Care Team Related Persons Name: DOMINGO ELIAS Name: BRANDY ROBERSON Address: [address] [address] Name: STATES, NO ONE
--- OUTSIDE RECORDS SUMMARY | 2023-12-23 10:08 | XMS_ITS | Continuity of Care Document ---
Author Organization [facility] Address [address] [place] [address]- Care Team Providers Care Hand Polisher Name Role Phone Zhang Benitez MD Primary Care Physician Encounter [facility] [place] Date(s): 07/05/23 - 08/04/23 [facility]/[place] [address]- Attending Physician: Admtr, Ar8 Allergies, Adverse Reactions, Alerts Substance Reaction Severity Status penicillin Active Immunizations Given and Recorded Vaccine Date Status Refusal Reason influenza virus vaccine, inactivated 07/13/22 Give n influenza virus vaccine, inactivated 04/23/21 Anival rded influenza virus vaccine, inactivated 05/17/18 Give n influenza virus vaccine, inactivated 06/30/16 Give n [id number] bivalent booster vax 07/09/22 Recorded SARS-CoV-2 (COVID-19) [...] Refills, Maintenance, 04/13/23 12:35:00 EDT, Tablet, [facility]/pharmacy #[id number], Partial fill upon patient request if [...] 1 Refills, Maintenance, 05/27/23 11:31:00 EDT, [facility]/pharmacy #[id number], TAKE ONE T... Start Date: 05/27/23 Status: Ordered Descovy 200 mg-25 mg oral [...] Route to Pharmacy Electronically, [facility]/pharmacy #[id number], 162.6, cm, 04/07/23 9:53:00 EDT, Height Start Date: 04/07/23 Status: Ordered hydrocortisone 1% topical cream 1 application, Topically, 2 times a day, EYE LIDS AVOID GETTING IN EYES LABEL IN [place], # 30 Gm, 0 Refills, Maintenance, 03/18/23 13:43:00 EDT, Cream, [facility]/pharmacy #[id number], Partial fill upon patient request if the prescription is for a schedule II o... Start Date: 03/18/23 Status: Ordered lansoprazole 15 mg oral enteric coated capsule See Instructions, TOME 1 CAPSULA POR VIA ORAL TODOS [place] TAKE 30 MINS BEFORE BREAKFAST, # 90 capsule, 1 Refills, Maintenance, 05/31/23 8:54:00 EDT, [id number], 162.6, cm, 04/13/23 12:15:00 EDT, Height Start Date: 05/31/23 Status: Ordered loratadine 10 mg oral tablet See Instructions, TOME KARL TABLETA POR VIA ORAL TODOS [place] CUANDO SEA NECESARIO ALLERGY SYMPTOMS, # 30 tablet, Refills 5, Maintenance, 11/13/22 16:18:00 EDT, Instructions Replace Required Details, Route to Pharmacy Electronically, [id number],... Start Date: 11/13/22 Status: Ordered metroNIDAZOLE 0.75% topical gel 1 application, Topically, 2 times a day, Apply a thin film to affected area after washing., # 45 Gm, 11 Refills, Maintenance, Rosacea, 01/12/23 17:32:00 EDT, [facility]/pharmacy #[id number], 1 application Topically 2 times a day,Instr:Apply a thin film to affected... Start Date: 01/12/23 Status: Ordered naphazoline 0.012% ophthalmic solution 1-2 drops, Eyes, Both, 4 times a day, PRN Red eyes, Getting nwpw-gsb-pmgqwih???name: Clear eyes, # 15 mL, 0 Refills, Maintenance, 03/31/23 13:56:00 EDT, . Start Date: 03/31/23 Status: Ordered nortriptyline 10 mg oral capsule 10 mg, 1, capsule, By Mouth, Daily at bedtime, # 30 capsule, Refills 2, Tot. Refills 2, Maintenance, 04/07/23 11:01:00 EDT, Route to Pharmacy Electronically, [facility]/pharmacy #[id number], Partial fill upon patient request if [...] Every 4 hours, PRN Cough, label in slovak, # 180 mL, 1 Refills, Maintenance, 12/01/22 17:23:00 EDT, [facility], Partial fill upon patient request if [...] EDT, Tablet Start Date: 03/31/23 Status: Ordered zolpidem 10 mg oral tablet 1 tablet = 10 mg, By Mouth, Daily at bedtime, given by Neil avendano Ag[place], 0 Refills, Maintenance, 06/19/15 14:48:48 EST [...] hip joint Confirmed Active [facility] Care Management Program Wrecking Supervisor Fransisco Chacon [phone] Confirmed Active 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 11 Confirmed Active Rosacea, acne Confirmed Active Chronic pain of both shoulders Confirmed Active Tear of meniscus of left knee 12 Confirmed 12/2015 Active Tension headache Confirmed 11/15/08 Active 1diagnosed at [facility] 2correction date food esophagus impactation is [...] 03/29/22 Sex Laboratory * Event Display: Non BH Lab Results Authored Date: * Zhang Benitez MD: REVIEW Event Display: Non BH Lab Results Authored Date: Cardiology * Zhang Benitez MD: REVIEW Event Display: Cardiology Office Note, Non-BH Authored Date: US Abdomen * Event Display: Ultrasound Abdomen Authored Date: Radiology * Linda Tejada: PERFORM Event Display: Radiology Results Scanned Authored Date: [id number] * Ana Cristina De La Rosa: PERFORM Event Display: Radiology Results Scanned Authored Date: [id number] Patient Care team information Care Team Personnel Name: Daron Allen RN Position: [facility] RN Member Role: Primary Care Nurse Name: Zhang Benitez MD Position: [facility] Physician - Primary Care Member Role: PCP Address: Address: [address] [place] [address]- Care Team Related Persons Name: DOMINGO ELIAS Name: BRANDY ROBERSON Address: [address] [address] Name: PT STATES, NO ONE
--- OUTSIDE RECORDS SUMMARY | 2023-12-23 10:08 | XMS_ITS | Continuity of Care Document ---
Author Organization [facility] Address [address] [place] [address]- Care Team Providers Care Gravity Prospecting Observer Helper Name Role Phone Zhang Benitez MD Primary Care Physician [place] [facility] [place]23 [place] 08/05/23 [facility]/[place] [address]- [place] Allergies, Adverse Reactions, Alerts Substance Reaction Severity Status penicillin Active Immunizations Given and Recorded Vaccine Date Status Refusal Reason influenza virus vaccine, inactivated 07/13/22 Give n influenza virus vaccine, inactivated 04/23/21 Anival rded influenza virus vaccine, inactivated 05/17/18 Give n influenza virus vaccine, inactivated 06/30/16 Give n [id number] bivalent booster vax 07/09/22 Recorded SARS-CoV-2 (COVID-19) [...] 0 Refills, Maintenance, 04/13/23 12:35:00 EDT, Tablet, [facility]/pharmacy #[id number], Partial fill upon patient request if [...] tablet, 1 Refills, Maintenance, 05/27/23 11:31:00 EDT, [facility]/pharmacy #1026, TAKE ONE T... Start Date: 05/27/23 [...] mL, 11 Refills, Maintenance, 01/12/23 17:33:00 EDT, [facility]/pharmacy #1026, 30, SPRAY 2 SPRAYS INTO EACH NOSTRIL TODOS [place], 162.6, cm, 01/12/23 14:53:00 EDT, Height Start Date: 01/12/23 Status: Ordered gabapentin 300 mg oral capsule 300 mg, 1, capsule, By Mouth, Daily, PRN, # 30 capsule, Refills 5, Tot. Refills 5, Maintenance, Pain , Moderate, 04/07/23 17:49:00 EDT, Route to Pharmacy Electronically, [facility]/pharmacy #1026, 162.6, cm, 04/07/23 9:53:00 EDT, Height Start Date: 04/07/23 Status: Ordered hydrocortisone 1% topical cream 1 application, Topically, 2 times a day, EYE LIDS AVOID GETTING IN EYES LABEL IN [place], # 30 Gm, 0 Refills, Maintenance, 03/18/23 13:43:00 EDT, Cream, [facility]/pharmacy #1026, Partial fill upon patient request if the prescription is for a schedule II o... Start Date: 03/18/23 Status: Ordered lansoprazole 15 mg oral enteric coated capsule See Instructions, TOME 1 CAPSULA POR VIA ORAL TODOS [place] TAKE 30 MINS BEFORE BREAKFAST, # 90 capsule, 1 Refills, Maintenance, 05/31/23 8:54:00 EDT, [id number], 162.6, cm, 04/13/23 12:15:00 EDT, Height Start Date: 05/31/23 Status: Ordered loratadine 10 mg oral tablet See Instructions, TOME KARL TABLETA POR VIA ORAL TODOS [place] CUANDO SEA NECESARIO ALLERGY SYMPTOMS, # 30 tablet, Refills 5, Maintenance, 11/13/22 16:18:00 EDT, Instructions Replace Required Details, Route to Pharmacy Electronically, [id number],... Start Date: 11/13/22 Status: Ordered metroNIDAZOLE 0.75% topical gel 1 application, Topically, 2 times a day, Apply a thin film to affected area after washing., # 45 Gm, 11 Refills, Maintenance, Rosacea, 01/12/23 17:32:00 EDT, [facility]/pharmacy #1026, 1 application Topically 2 times a day,Instr:Apply a thin film to affected... Start Date: 01/12/23 Status: Ordered naphazoline 0.012% ophthalmic solution 1-2 drops, Eyes, Both, 4 times a day, PRN Red eyes, Getting gvqt-sox-jpfjkrq???name: Clear eyes, # 15 mL, 0 Refills, Maintenance, 03/31/23 13:56:00 EDT, . Start Date: 03/31/23 Status: Ordered nortriptyline 10 mg oral capsule 10 mg, 1, capsule, By Mouth, Daily at bedtime, # 30 capsule, Refills 2, Tot. 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 11 Confirmed Active Rosacea, acne Confirmed Active Chronic pain of both shoulders Confirmed Active Tear of meniscus of left knee 12 Confirmed 12/2015 Active Tension headache Confirmed 11/15/08 Active 1diagnosed at [facility] 2correction date food esophagus impactation is 06/30/12 [...] Team Personnel Name: Daron Allen RN Position: [facility] RN Member Role: Primary Care Nurse Name: Zhang Benitez MD Position: [facility] Physician - Primary Care Member Role: PCP Address: Address: [address] [place] [address]- Care Team Related Persons Name: DOMINGO ELIAS Name: BRANDY ROBERSON Address: [place] [address] Name: STATES, NO ONE
--- OUTSIDE RECORDS SUMMARY | 2023-12-23 10:08 | XMS_ITS | Continuity of Care Document ---
Author Organization [facility] Address [address], [address] [place] [address]- Care Team Providers Care Float Builder Name Role Phone Emmanuel CARRILLO, Zhang Primary Care Physician Encounter [facility] [place] Date(s): 05/13/23 - 09/10/23 [facility] [address], [address] [place] [address] Encounter Diagnosis Chronic migraine without aura, not intractable(Discharge Diagnosis) - 08/11/23 Headache syndrome(Discharge Diagnosis) - 08/11/23 Attending Physician: Susan CARRILLO, Bladimir Brown Admitting Physician: Susan CARRILLO, Bladimir Brown Allergies, Adverse Reactions, Alerts Substance Reaction Severity Status penicillin Active Immunizations Given and Recorded Vaccine Date Status Refusal Reason influenza virus vaccine, inactivated 07/13/22 Give n influenza virus vaccine, inactivated 04/23/21 Anival rded influenza virus vaccine, inactivated 05/17/18 Give n influenza virus vaccine, inactivated 06/30/16 Give n [id number] bivalent booster vax 07/09/22 Recorded SARS-CoV-2 (COVID-19) [...] adult vaccine 7 09/14/06 Given 1Result Comment: [facility] 2Admin Note: ADACEL VIS 06/25/08 GIVEN 3Admin [...] 0 Refills, Maintenance, 04/13/23 12:35:00 EDT, Tablet, [facility]/pharmacy #1026, Partial fill upon patient request [...] tablet, 1 Refills, Maintenance, 05/27/23 11:31:00 EDT, [facility], TA[facility] T... Start Date: 05/27/23 [...] SPRAYS INTO EACH NOSTRIL TODOS ZEYAD COLON, 162.6, cm, 01/12/23 14:53:00 EDT, Height Start Date: 01/12/23 Status: Ordered gabapentin 300 mg oral capsule 300 mg, 1, capsule, By Mouth, Daily, PRN, # 30 capsule, Refills 1, Tot. Refills 1, Maintenance, Pain , Moderate, 08/12/23 12:58:00 EST, Route to Pharmacy Electronically, [facility]/pharmacy #1026, 162.6, cm, 07/05/23 13:40:00 EST, Height Start Date: 08/12/23 Status: Ordered hydrocortisone 1% topical cream 1 application, Topically, 2 times a day, EYE LIDS AVOID GETTING IN EYES LABEL IN [place], # 30 Gm, 0 Refills, Maintenance, 03/18/23 13:43:00 EDT, Cream, [facility]/pharmacy #1026, Partial fill upon patient request if the prescription is for a schedule II o... Start Date: 03/18/23 Status: Ordered lansoprazole 15 mg oral enteric coated capsule See Instructions, TOME 1 CAPSULA POR VIA ORAL TODOS [place] TAKE 30 MINS BEFORE BREAKFAST, # 90 capsule, 1 Refills, Maintenance, 05/31/23 8:54:00 EDT, [id number], 162.6, cm, 04/13/23 12:15:00 EDT, Height Start Date: 05/31/23 Status: Ordered loratadine 10 mg oral tablet See Instructions, TOME KARL TABLETA POR VIA ORAL TODOS [place] CUANDO SEA NECESARIO ALLERGY SYMPTOMS, # 30 tablet, Refills 5, Maintenance, 11/13/22 16:18:00 EDT, Instructions Replace Required Details, Route to Pharmacy Electronically, [id number],... Start Date: 11/13/22 Status: Ordered metroNIDAZOLE 0.75% topical gel 1 application, Topically, 2 times a day, Apply a thin film to affected area after washing., # 45 Gm, 11 Refills, Maintenance, Rosacea, 01/12/23 17:32:00 EDT, [facility]/pharmacy #1026, 1 application Topically 2 times a day,Instr:Apply a thin film to affected... Start Date: 01/12/23 Status: Ordered naphazoline 0.012% ophthalmic solution 1-2 drops, Eyes, Both, 4 times a day, PRN Red eyes, Getting tiee-efu-ldofhsb???name: Clear eyes, # 15 mL, 0 Refills, Maintenance, 03/31/23 13:56:00 EDT, . Start Date: 03/31/23 Status: Ordered nortriptyline 10 mg oral capsule 10 mg, 1, capsule, By Mouth, Daily at bedtime, # 30 capsule, Refills 2, Tot. 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 11 Confirmed Active Rosacea, acne Confirmed Active Chronic pain of both shoulders Confirmed Active Tear of meniscus of left knee 12 Confirmed 12/2015 Active Tension headache Confirmed 11/15/08 Active 1diagnosed at [facility] 2correction date food esophagus impactation [...] Diagnosis Diagnosis Type Effective Dates Health Status Clinical Service Informant Chronic migraine without aura, not intractable Discharge Diagnosis 08/11/23 Headache syndrome Discharge Diagnosis 08/11/23 Social History Social History Type Response Smoking Status Former smoker, quit more than 30 days ago entered on: 03/29/22 Sex Patient Care team information Care Team Personnel Name: Daron Allen RN Position: [facility] RN Member Role: Primary Care Nurse Name: Zhang Benitez MD Position: [facility] Physician - Primary Care Member Role: PCP Address: Address: [address] [place] [address]- Care Team Related Persons Name: DOMINGO ELIAS Name: BRANDY ROBERSON Address: [address] [address] Name: PT STATES, NO ONE
--- OUTSIDE RECORDS SUMMARY | 2023-12-23 10:08 | XMS_ITS | Continuity of Care Document ---
Author Organization [facility] Address [address] [place] [address]- Care Team Providers Care Personnel Manager Name Role Phone Emmanuel CARRILLO, Zhang Primary Care Physician Encounter [facility] [place] Date(s): 09/27/23 - 10/27/23 [facility]/[place] [address]- [place] Allergies, Adverse Reactions, Alerts Substance Reaction Severity Status penicillin Active Immunizations Given and Recorded Vaccine Date Status Refusal Reason influenza virus vaccine, inactivated 07/13/22 Give n influenza virus vaccine, inactivated 04/23/21 Anival rded influenza virus vaccine, inactivated 05/17/18 Give n influenza virus vaccine, inactivated 06/30/16 Give n [id number] bivalent booster vax 07/09/22 Recorded SARS-CoV-2 (COVID-19) [...] 7 09/14/06 Given 1Result Comment: [facility] 2Admin Note: ADACEL VIS [...] 0 Refills, Maintenance, 04/13/23 12:35:00 EDT, Tablet, [facility]/pharmacy #1026, Partial fill upon patient [...] tablet, 1 Refills, Maintenance, 05/27/23 11:31:00 EDT, [facility]/pharmacy #1026, TAKE ONE T... Start Date: 05/27/23 [...] 2 SPRAYS INTO EACH NOSTRIL TODOS [place], # 16 mL, 11 Refills, Maintenance, 01/12/23 [...] EST, Height Start Date: 09/22/23 Status: Ordered hydrocortisone 1% topical cream 1 application, Topically, 2 times a day, EYE LIDS AVOID GETTING IN EYES LABEL IN [place], # 30 Gm, 0 Refills, Maintenance, 03/18/23 13:43:00 EDT, Cream, [facility]/pharmacy #1026, Partial fill upon patient request if the prescription is for a schedule II o... Start Date: 03/18/23 Status: Ordered ibuprofen 800 mg oral tablet 800 mg, 1, tablet, By Mouth, 3 times a day, PRN, for 7 days, with food or milk, # 21 tablet, Refills 0, Tot. Refills 0, Acute 10/31/23 15:16:00 EDT, as needed for pain, 10/24/23 15:16:00 EDT, Route to Pharmacy Electronically, [facility]/pharmacy #1026, label... Start Date: 10/24/23 Stop Date: 10/31/23 Status: Ordered lansoprazole 15 mg oral enteric coated capsule See Instructions, TOME 1 CAPSULA POR VIA ORAL TODOS [place] TAKE 30 MINS BEFORE BREAKFAST, # 90 capsule, 1 Refills, Maintenance, 05/31/23 8:54:00 EDT, [id number], 162.6, cm, 04/13/23 12:15:00 EDT, Height Start Date: 05/31/23 Status: Ordered lidocaine 5% topical ointment 1 application, Topically, 4 times a day, PRN pain, for 7 days, Apply a thin layer to painful area. Wash hands thoroughly after application, # 50 Gm, 2 Refills, Acute 11/14/23 15:16:00 EDT, 10/24/23 15:16:00 EDT, Ointment, [facility]/pharmacy #1026, label in... Start Date: 10/24/23 Stop Date: 11/14/23 Status: Ordered loratadine 10 mg oral tablet See Instructions, TOME KARL TABLETA POR VIA ORAL TODOS [place] CUANDO SEA NECESARIO ALLERGY SYMPTOMS, # 30 tablet, Refills 5, Maintenance, 11/13/22 16:18:00 EDT, Instructions Replace Required Details, Route to Pharmacy Electronically, [id number],... Start Date: 11/13/22 Status: Ordered metroNIDAZOLE 0.75% topical gel 1 application, Topically, 2 times a day, Apply a thin film to affected area after washing., # 45 Gm, 11 Refills, Maintenance, Rosacea, 01/12/23 17:32:00 EDT, [facility]/pharmacy #1026, 1 application Topically 2 times a day,Instr:Apply a thin film to affected... Start Date: 01/12/23 Status: Ordered naltrexone 50 mg oral tablet 1 tablet = 50 mg, By Mouth, Daily, for 12 week(s), # 84 tablet, 0 Refills, Acute 12/27/23 12:22:00 EDT, 10/04/23 12:22:00 EST, Tablet, [facility]/pharmacy #1026, Partial fill upon patient request if the prescription is for a schedule II opioid drug., 162.6,... Start Date: 10/04/23 Stop Date: 12/27/23 Status: Ordered naphazoline 0.012% ophthalmic solution 1-2 drops, Eyes, Both, 4 times a day, PRN Red eyes, Getting hifw-off-azjtauq???name: Clear eyes, # 15 mL, 0 Refills, Maintenance, 03/31/23 13:56:00 EDT, . Start Date: 03/31/23 Status: Ordered nortriptyline 10 mg oral capsule 10 mg, 1, capsule, By Mouth, Daily at bedtime, # 30 capsule, Refills 2, Tot. Refills 2, Maintenance, 04/07/23 11:01:00 EDT, Route to Pharmacy Electronically, [facility]/pharmacy #1026, Partial fill upon patient [...] Every 4 hours, PRN Cough, label in divehi, # 180 mL, 1 Refills, Maintenance, 12/01/22 17:23:00 EDT, [facility], Partial fill [...] EDT, Tablet Start Date: 03/31/23 Status: Ordered VITAMIN D3 25 MCG TABLET VITAMIN D3 25 MCG TABLET, See Instructions, # 90 tablet, 3 Refills, Maintenance, TOME KARL TABLETA TODOS [place], 10/03/23 16:39:00 EST, 162.6, cm, 07/05/23 13:40:00 EST, Height Start Date: 10/03/23 Status: Ordered zolpidem 10 mg oral tablet [...] left hip joint Confirmed Active [facility] Care Management Program Global Marketing Intern Fransisco Chacon [phone] Confirmed Active Poliomyelitis osteopathy of the right [...] Care Nurse Name: Emmanuel CARRILLO, Zhang Position: [facility] Physician - Primary Care Member Role: PCP Address: Address: [address] [place] [address]- Care Team Related Persons Name: DOMINGO ELIAS Name: BRANDY ROBERSON Address: [address] [address] Name: STATES, NO ONE
--- OUTSIDE RECORDS SUMMARY | 2023-12-23 10:09 | XMS_ITS | Continuity of Care Document ---
Author Organization [facility] Address [address] [place] [address]- Care Team Providers Care Horse Stud Worker Name Role Phone Zhang Benitez MD Primary Care Physician Encounter [facility] Date(s): 05/24/23 - 06/23/23 [facility] [place] [address]- [place] Allergies, Adverse Reactions, Alerts Substance Reaction Severity Status penicillin Active Immunizations Given and Recorded Vaccine Date Status Refusal Reason influenza virus vaccine, inactivated 07/13/22 Give n influenza virus vaccine, inactivated 04/23/21 Anival rded influenza virus vaccine, inactivated 05/17/18 Give n influenza virus vaccine, inactivated 06/30/16 Give n [id number] bivalent booster vax 07/09/22 Recorded SARS-CoV-2 (COVID-19) [...] a schedule II opioid drug., 162.6, cm, 04/13/... Start Date: 04/13/23 Status: Ordered clonazePAM 0.5 [...] 17:49:00 EDT, Route to Pharmacy Electronically, [facility]/pharmacy #[id number], 162.6, cm, 04/07/23 9:53:00 EDT, Height Start Date: 04/07/23 Status: Ordered hydrocortisone 1% topical cream 1 application, Topically, 2 times a day, EYE LIDS AVOID GETTING IN EYES LABEL IN GERMAN, # 30 Gm, 0 Refills, Maintenance, 03/18/23 13:43:00 EDT, Cream, [facility]/pharmacy #[id number], Partial fill upon patient request if the prescription is for a schedule II o... Start Date: 03/18/23 Status: Ordered lansoprazole 15 mg oral enteric coated capsule See Instructions, TOME 1 CAPSULA POR VIA ORAL TODOS [place] TAKE 30 MINS BEFORE BREAKFAST, # 90 capsule, 1 Refills, Maintenance, 05/31/23 8:54:00 EDT, [id number], 162.6, cm, 04/13/23 12:15:00 EDT, Height Start Date: 05/31/23 Status: Ordered loratadine 10 mg oral tablet See Instructions, TOME KARL TABLETA POR VIA ORAL TODOS [place] COL[place] CUANDO SEA NECESARIO ALLERGY SYMPTOMS, # 30 tablet, Refills 5, Maintenance, 11/13/22 16:18:00 EDT, Instructions Replace Required Details, Route to Pharmacy Electronically, [id number],... Start Date: 11/13/22 Status: Ordered metroNIDAZOLE 0.75% [...] times a day, PRN Red eyes, Getting bhos-jrz-vffbwmm???name: Clear eyes, # 15 mL, 0 Refills, [...] Every 4 hours, PRN Cough, label in romansh, # 180 mL, 1 Refills, Maintenance, 12/01/22 17:23:00 EDT, [facility], Partial fill upon patient request if [...] 07/07/23 16:35:00 EST, 07/12/22 16:35:00 EST, [facility]/pharmacy #[id number], 162.6, cm, 05/06/22 10:10:00 EDT, Height, 81.1, kg, 11/24/20 11:26:00 EDT, Dry Weight Start Date: 07/12/22 Stop Date: 07/07/23 Status: Ordered zolpidem 10 mg oral tablet 1 tablet = 10 mg, By Mouth, Daily at bedtime, given by psych, eNil Balderas, 0 Refills, Maintenance, 06/19/15 14:48:48 EST [...] left hip joint Confirmed Active CP [facility] Care Management Program Hyperbaric Nurse Fransisco Oswaldo [phone] Confirmed Active 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 11 Confirmed Active Rosacea, acne Confirmed Active Chronic pain of both shoulders Confirmed Active Tear of meniscus of left knee 12 Confirmed 12/2015 Active Tension headache Confirmed 11/15/08 Active 1diagnosed at [facility] 2correction date food esophagus impactation is 06/30/12 3EGD 06/30/14: food impactation Neg breath test for H Pylori Prateek Colby MD 11/25/11 EGD Impressions: Normal mucosa [...] Name: Daron Allen RN Position: [facility] RN Member Role: Primary Care Nurse Name: Zhang Benitez MD Position: [facility] Physician - Primary Care Member Role: PCP Address: Address: [address] [place] [address]- Care Team Related Persons Name: DOMINGO ELIAS Name: BRANDY ROBERSON Address: [place] [address] Name: STATES, NO ONE
--- OUTSIDE RECORDS SUMMARY | 2023-12-23 10:09 | XMS_ITS | Continuity of Care Document ---
Author Organization [facility] Address [address] [place] [address]- Care Team Providers Care Photo Lab Specialist Name Role Phone Emmanuel CARRILLO, Zhang Primary Care Physician Encounter [facility] Date(s): 10/24/23 - 10/31/23 [facility] [address] [place] [address]- Attending Physician: Bharath Dyson MD Referring Physician: Zhang Benitez MD Allergies, Adverse Reactions, Alerts Substance Reaction Severity Status penicillin Active Immunizations Given and Recorded Vaccine Date Status Refusal Reason influenza virus vaccine, inactivated 07/13/22 Give n influenza virus vaccine, inactivated 04/23/21 Anival rded influenza virus vaccine, inactivated 05/17/18 Give n influenza virus vaccine, inactivated 06/30/16 Give n [id number] bivalent booster vax 07/09/22 Recorded SARS-CoV-2 (COVID-19) [...] vaccine 7 09/14/06 Given 1Result Comment: SKIP FIGUEROA AVLisa 2Admin Note: ADACEL VIS 06/25/08 GIVEN [...] 0 Refills, Maintenance, 04/13/23 12:35:00 EDT, Tablet, [facility]/pharmacy #[id number], Partial fill upon patient request if [...] tablet, 1 Refills, Maintenance, 05/27/23 11:31:00 EDT, [facility]/pharmacy #[id number], TAKE ONE T... Start Date: 05/27/23 Status: Ordered diclofenac 1% topical gel = 2 Gm, Topically, 4 times a day, # 100 Gm, 5 Refills, Maintenance, 10/31/23 13:51:00 EDT, Gel, [facility]/pharmacy #[id number], ., 162.6, cm, 10/31/23 11:03:00 EDT, [...] mL, 11 Refills, Maintenance, 01/12/23 17:33:00 EDT, [facility]/pharmacy #1026, 30, SPRAY 2 SPRAYS INTO EACH [...] capsule, 3 Refills, Maintenance, 10/31/23 13:59:00 EDT, [id number], 162.6, cm, 10/31/23 11:03:00 EDT, Height Start Date: 10/31/23 Status: Ordered lidocaine 5% topical ointment 1 application, Topically, 4 times a day, PRN pain, for 7 days, Apply a thin layer to painful area. Wash hands thoroughly after application, # 50 Gm, 2 Refills, Acute 11/14/23 15:16:00 EDT, 10/24/23 15:16:00 EDT, Ointment, [facility]/pharmacy #[id number], label in... Start Date: 10/24/23 Stop Date: 11/14/23 Status: Ordered meloxicam 15 mg oral tablet 1 tablet = 15 mg, By Mouth, Daily, with food Discontinue ibuprofen 800 mg, # 30 tablet, 1 Refills, Maintenance, 10/31/23 13:53:00 EDT, Tablet, [id number], Partial fill upon patient request ifthe [...] times a day, PRN Red eyes, Getting jvox-vob-ncqhhvn???name: Clear eyes, # 15 mL, 0 Refills, Maintenance, 03/31/23 13:56:00 EDT, . Start Date: 03/31/23 Status: Ordered nortriptyline 10 mg oral capsule 10 mg, 1, capsule, By Mouth, Daily at bedtime, # 30 capsule, Refills 2, Tot. Refills 2, Maintenance, 04/07/23 11:01:00 EDT, Route to Pharmacy Electronically, [facility]/pharmacy #[id number], Partial fill upon patient request if [...] Acute 12/15/23 14:02:00 EDT, 10/31/23 14:00:00 EDT, [facility]/pharmacy #1026, Partial fill upon patient request if the prescription is for a schedule II opioid drug., 1 applicator Topically 2 times... Start Date: 10/31/23 Stop Date: 12/15/23 Status: Ordered Vitamin D3 1000 intl units oral tablet 1 tablet = 1,000 International_Units, By Mouth, Daily, # 90 tablet, 3 Refills, Maintenance, 10/31/23 14:08:00 EDT, [facility]/pharmacy #[id number], ., 162.6, cm, 10/31/23 11:03:00 EDT, [...] Daily at bedtime, given by psych, Neil Agbonifrenaldo, 0 Refills, Maintenance, 06/19/15 14:48:48 EST Start [...] [facility] Care Management Program Biller Fransisco Chacon [phone] Confirmed Active Rosacea, acne Confirmed Active Chronic pain of both shoulders Confirmed Active Tear of meniscus of left knee 11 Confirmed 12/2015 Active Tension headache Confirmed 11/15/08 Active 1diagnosed at [facility] 2correction date food esophagus impactation is 06/30/12 [...] oldest [Reference Range]: 1 Height 162.6 cm (10/24/23 2:10 PM) Oxygen Saturation [94-100 %] 96 % (10/24/23 2:10 PM) Pulse Rate [55-90 bpm] 80 bpm (10/24/23 2:10 PM) Blood Pressure [90-138/55-84 mm Hg] 111/ 70mm Hg (10/24/23 2:10 PM) Temperature [96.8-100.4 DegF] 97.0 DegF (10/24/23 2:10 PM) Mode of Delivery (Oxygen) Room air (10/24/23 2:10 PM) Blood pressure sites Arm, right (10/24/23 2:10 PM) Temperature Route Temporal (10/24/23 2:10 PM) Social History Social History Type Response Smoking Status Former smoker, quit more than 30 days ago entered on: 03/29/22 Sex Patient Care team information Care Team Personnel Name: Daron Allen RN Position: [facility] RN Member Role: Primary Care Nurse Name: Emmanuel CARRILLO, Zhang Position: [facility] Physician - Primary Care Member Role: PCP Address: Address: [address] [place] [address]- Care Team Related Persons Name: DOMINGO ELIAS Name: BRANDY ROBERSON Address: home [address] [place] [id number] Name: PT STATES, NO ONE
--- OUTSIDE RECORDS SUMMARY | 2023-12-23 10:09 | XMS_ITS | Continuity of Care Document ---
Author Organization [facility] Address [address] [place] [address]- Care Team Providers Care Broach Trouble Shooter Name Role Phone Emmanuel CARRILLO, Zhang Primary Care Physician Encounter [facility] Date(s): 10/03/23 - 11/02/23 [facility] [address] [address]- Allergies, Adverse Reactions, Alerts Substance Reaction Severity Status penicillin Active Immunizations Given and Recorded Vaccine Date Status Refusal Reason influenza virus vaccine, inactivated 07/13/22 Give n influenza virus vaccine, inactivated 04/23/21 Anival rded influenza virus vaccine, inactivated 05/17/18 Give n influenza virus vaccine, inactivated 06/30/16 Give n [id number] bivalent booster vax 07/09/22 Recorded SARS-CoV-2 (COVID-19) [...] 09/14/06 Given 1Result Comment: SKIP [facility] ISAACLisa 2Admin Note: ADACEL VIS 06/25/08 GIVEN 3Admin [...] 0 Refills, Maintenance, 04/13/23 12:35:00 EDT, Tablet, [facility]/pharmacy #[id number], Partial fill upon patient [...] tablet, 1 Refills, Maintenance, 05/27/23 11:31:00 EDT, [facility]/pharmacy #1026, TAKE ONE T... Start Date: 05/27/23 Status: Ordered diclofenac 1% topical gel = 2 Gm, Topically, 4 times a day, # 100 Gm, 5 Refills, Maintenance, 10/31/23 13:51:00 EDT, Gel, [facility]/pharmacy #[id number], ., 162.6, cm, 10/31/23 11:03:00 EDT, [...] 11/14/23 15:16:00 EDT, 10/24/23 15:16:00 EDT, Ointment, [facility]/pharmacy #1026, label in... Start Date: 10/24/23 Stop Date: 11/14/23 Status: Ordered meloxicam 15 mg oral tablet 1 tablet = 15 mg, By Mouth, Daily, with food Discontinue ibuprofen 800 mg, # 30 tablet, 1 Refills, Maintenance, 10/31/23 13:53:00 EDT, Tablet, [facility]/pharmacy #1026, Partial fill upon patient request ifthe [...] times a day, PRN Red eyes, Getting yjsb-gzf-upyvihl???name: Clear eyes, # 15 mL, 0 Refills, Maintenance, 03/31/23 13:56:00 EDT, . Start Date: 03/31/23 Status: Ordered nortriptyline 10 mg oral capsule 10 mg, 1, capsule, By Mouth, Daily at bedtime, # 30 capsule, Refills 2, Tot. Refills 2, Maintenance, 04/07/23 11:01:00 EDT, Route to Pharmacy Electronically, [facility]/pharmacy #[id number], Partial fill upon patient [...] Acute 12/15/23 14:02:00 EDT, 10/31/23 14:00:00 EDT, [facility]/pharmacy #1026, Partial fill upon patient [...] left hip joint Confirmed Active CP [facility] Care Management Program Solderer Torch Fransisco Chacon [phone] Confirmed Active Rosacea, acne Confirmed Active Chronic pain of both shoulders Confirmed Active Tear of meniscus of left knee 11 Confirmed 12/2015 Active Tension headache Confirmed 11/15/08 Active 1diagnosed at [facility] 2correction date food esophagus impactation is 06/30/12 3EGD 06/30/14: food impactation Neg breath test for H Pylori 5Bradha Colby MD 11/25/11 EGD Impressions: Normal mucosa [...] Team Personnel Name: Daron Allen RN Position: [facility] RN Member Role: Primary Care Nurse Name: Zhang Benitez MD Position: [facility] Physician - Primary Care Member Role: PCP Address: Address: [address] [place] [address]- Care Team Related Persons Name: DOMINGO ELIAS Name: BRANDY ROBERSON Address: [place] [address] Name: PT STATES, NO ONE
--- OUTSIDE RECORDS SUMMARY | 2023-12-23 10:11 | XMS_ITS | Continuity of Care Document ---
Author Organization [facility] Address [address] [place] [address]- Care Team Providers Care People Manager Name Role Phone Emmanuel CARRILLO, Zhang Primary Care Physician Encounter [facility] Date(s): 09/21/23 - 10/21/23 [facility] [place] [address]- [place] Allergies, Adverse Reactions, Alerts Substance Reaction Severity Status penicillin Active Immunizations Given and Recorded Vaccine Date Status Refusal Reason influenza virus vaccine, inactivated 07/13/22 Give n influenza virus vaccine, inactivated 04/23/21 Anival rded influenza virus vaccine, inactivated 05/17/18 Give n influenza virus vaccine, inactivated 06/30/16 Give n [id number] bivalent booster vax 07/09/22 Recorded SARS-CoV-2 (COVID-19) [...] 0 Refills, Maintenance, 04/13/23 12:35:00 EDT, Tablet, [facility]/pharmacy #1026, Partial fill upon patient [...] LIDS AVOID GETTING IN EYES LABEL IN NIGERIAN, # 30 Gm, 0 Refills, Maintenance, 03/18/23 13:43:00 EDT, Cream, [facility]/pharmacy #1026, Partial fill upon patient request if the prescription is for a schedule II o... Start Date: 03/18/23 Status: Ordered lansoprazole 15 mg oral enteric coated capsule See Instructions, TOME 1 CAPSULA POR VIA ORAL TODOS [place] TAKE 30 MINS BEFORE BREAKFAST, # 90 capsule, 1 Refills, Maintenance, 05/31/23 8:54:00 EDT, [id number], 162.6, cm, 04/13/23 12:15:00 EDT, Height Start Date: 05/31/23 Status: Ordered loratadine 10 mg oral tablet See Instructions, TOME KARL TABLETA POR VIA ORAL TODOS [place] CUANDO SEA NECESARIO ALLERGY SYMPTOMS, # 30 tablet, Refills 5, Maintenance, 11/13/22 16:18:00 EDT, Instructions Replace Required Details, Route to Pharmacy Electronically, [id number],... Start Date: 11/13/22 Status: Ordered metroNIDAZOLE 0.75% topical gel 1 application, Topically, 2 times a day, Apply a thin film to affected area after washing., # 45 Gm, 11 Refills, Maintenance, Rosacea, 01/12/23 17:32:00 EDT, [facility]/pharmacy #1026, 1 application Topically 2 times a day,Instr:Apply a thin film to affected... Start Date: 01/12/23 Status: Ordered naltrexone 50 mg oral tablet 1 tablet = 50 mg, By Mouth, Daily, for 12 week(s), # 84 tablet, 0 Refills, Acute 12/27/23 12:22:00 EDT, 10/04/23 12:22:00 EST, Tablet, [facility]/pharmacy #1026, Partial fill upon patient request if the prescription is for a schedule II opioid drug., 162.6,... Start Date: 10/04/23 Stop Date: 12/27/23 Status: Ordered naphazoline 0.012% ophthalmic solution 1-2 drops, Eyes, Both, 4 times a day, PRN Red eyes, Getting uiao-sws-alhqdkz???name: Clear eyes, # 15 mL, 0 Refills, Maintenance, 03/31/23 13:56:00 EDT, . Start Date: 03/31/23 Status: Ordered nortriptyline 10 mg oral capsule 10 mg, 1, capsule, By Mouth, Daily at bedtime, # 30 capsule, Refills 2, Tot. 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
--- OUTSIDE RECORDS SUMMARY | 2023-12-23 10:11 | XMS_ITS | Continuity of Care Document ---
Author Organization [facility] Address [address] [place] [address]- Care Team Providers Care Category Planner Name Role Phone Emmanuel CARRILLO, Zhang Primary Care Physician Encounter [facility] Date(s): 10/10/23 - 11/09/23 [facility] [address] [address]- Allergies, Adverse Reactions, Alerts Substance Reaction Severity Status penicillin Active Immunizations Given and Recorded Vaccine Date Status Refusal Reason influenza virus vaccine, inactivated 07/13/22 Give n influenza virus vaccine, inactivated 04/23/21 Anival rded influenza virus vaccine, inactivated 05/17/18 Give n influenza virus vaccine, inactivated 06/30/16 Give n [id number] bivalent booster vax 07/09/22 Recorded SARS-CoV-2 (COVID-19) [...] 0 Refills, Maintenance, 04/13/23 12:35:00 EDT, Tablet, [facility]/pharmacy #1026, Partial fill upon patient [...] 5 Refills, Maintenance, 10/31/23 13:51:00 EDT, Gel, [facility]/pharmacy #1026, ., 162.6, cm, 10/31/23 [...] mL, 11 Refills, Maintenance, 01/12/23 17:33:00 EDT, [facility]/pharmacy #1026, 30, SPRAY 2 SPRAYS [...] 11/14/23 15:16:00 EDT, 10/24/23 15:16:00 EDT, Ointment, [facility]/pharmacy #1026, label in... Start Date: 10/24/23 Stop Date: 11/14/23 Status: Ordered meloxicam 15 mg oral tablet 1 tablet = 15 mg, By Mouth, Daily, with food Discontinue ibuprofen 800 mg, # 30 tablet, 1 Refills, Maintenance, 10/31/23 13:53:00 EDT, Tablet, [facility]/pharmacy #1026, Partial fill upon patient request ifthe [...] times a day, PRN Red eyes, Getting iznl-zjk-fuyjfpu???name: Clear eyes, # 15 mL, 0 Refills, Maintenance, 03/31/23 13:56:00 EDT, . Start Date: 03/31/23 Status: Ordered nortriptyline 10 mg oral capsule 10 mg, 1, capsule, By Mouth, Daily at bedtime, # 30 capsule, Refills 2, Tot. Refills 2, Maintenance, 04/07/23 11:01:00 EDT, Route to Pharmacy Electronically, [facility]/pharmacy #1026, Partial fill upon patient [...] Acute 12/15/23 14:02:00 EDT, 10/31/23 14:00:00 EDT, [facility]/pharmacy #1026, Partial fill upon patient request if the prescription is for a schedule II opioid drug., 1 applicator Topically 2 times... Start Date: 10/31/23 Stop Date: 12/15/23 Status: Ordered Vitamin D3 1000 intl units oral tablet 1 tablet = 1,000 International_Units, By Mouth, Daily, # 90 tablet, 3 Refills, Maintenance, 10/31/23 14:08:00 EDT, [facility]/pharmacy #1026, ., 162.6, cm, 10/31/23 [...] left hip joint Confirmed Active CP [facility] Care Management Program Test Kitchen Home Economist Fransisco Chacon [phone] Confirmed Active Rosacea, acne Confirmed Active Chronic pain of both shoulders Confirmed Active Tear of meniscus of left knee 11 Confirmed 12/2015 Active Tension headache Confirmed 11/15/08 Active 1diagnosed at [facility] 2correction date food esophagus impactation is 06/30/12 [...] Team Personnel Name: Daron Allen RN Position: [facility] RN Member Role: Primary Care Nurse Name: Zhang Benitez MD Position: [facility] Physician - Primary Care Member Role: PCP Address: Address: [address] [place] [address]- Care Team Related Persons Name: DOMINGO ELIAS Name: BRANDY ROBERSON Address: [place] [address] Name: PT STATES, NO ONE
--- OUTSIDE RECORDS SUMMARY | 2023-12-23 10:11 | XMS_ITS | Continuity of Care Document ---
Author Organization [facility] Address [address] [place] [address]- Care Team Providers Care Manager Location Name Role Phone Zhang Benitez MD Primary Care Physician [place] [facility] [place](s): 05/17/23 - 06/16/23 [facility] [address]- [place] Allergies, Adverse Reactions, Alerts Substance Reaction Severity Status penicillin Active Immunizations Given and Recorded Vaccine Date Status Refusal Reason influenza virus vaccine, inactivated 07/13/22 Give n influenza virus vaccine, inactivated 04/23/21 Anival rded influenza virus vaccine, inactivated 05/17/18 Give n influenza virus vaccine, inactivated 06/30/16 Give n [id number] bivalent booster vax 07/09/22 Recorded SARS-CoV-2 (COVID-19) [...] Maintenance, 04/13/23 12:35:00 EDT, Tablet, [facility]/pharmacy #[id number], Partial fill upon patient [...] EDT, Route to Pharmacy Electronically, [facility]/pharmacy #[id number], 162.6, cm, 04/07/23 9:53:00 EDT, Height Start Date: 04/07/23 Status: Ordered hydrocortisone 1% topical cream 1 application, Topically, 2 times a day, EYE LIDS AVOID GETTING IN EYES LABEL IN INDONESIAN, # 30 Gm, 0 Refills, Maintenance, 03/18/23 13:43:00 EDT, Cream, [facility]/pharmacy #1026, Partial fill upon patient request if the prescription is for a schedule II o... Start Date: 03/18/23 Status: Ordered lansoprazole 15 mg oral enteric coated capsule See Instructions, TOME 1 CAPSULA POR VIA ORAL TODOS [place] TAKE 30 MINS BEFORE BREAKFAST, # 90 capsule, 1 Refills, Maintenance, 05/31/23 8:54:00 EDT, [id number], 162.6, cm, 04/13/23 12:15:00 EDT, Height Start Date: 05/31/23 Status: Ordered loratadine 10 mg oral tablet See Instructions, TOME KARL TABLETA POR VIA ORAL TODOS [place] CUANDO SEA NECESARIO ALLERGY SYMPTOMS, # 30 tablet, Refills 5, Maintenance, 11/13/22 16:18:00 EDT, Instructions Replace Required Details, Route to Pharmacy Electronically, [id number],... Start Date: 11/13/22 Status: Ordered metroNIDAZOLE 0.75% topical gel 1 application, Topically, 2 times a day, Apply a thin film to affected area after washing., # 45 Gm, 11 Refills, Maintenance, Rosacea, 01/12/23 17:32:00 EDT, [facility]/pharmacy #1026, 1 application Topically 2 times a day,Instr:Apply a thin film to affected... Start Date: 01/12/23 Status: Ordered naphazoline 0.012% ophthalmic solution 1-2 drops, Eyes, Both, 4 times a day, PRN Red eyes, Getting wyyq-xhu-vldkhnl???name: Clear eyes, # 15 mL, 0 Refills, Maintenance, 03/31/23 13:56:00 EDT, . Start Date: 03/31/23 Status: Ordered nortriptyline 10 mg oral capsule 10 mg, 1, capsule, By Mouth, Daily at bedtime, # 30 capsule, Refills 2, Tot. Refills 2, Maintenance, 04/07/23 11:01:00 EDT, Route to Pharmacy Electronically, [facility]/pharmacy #[id number], Partial fill upon patient [...] Every 4 hours, PRN Cough, label in tamazight, # 180 mL, 1 Refills, Maintenance, 12/01/22 17:23:00 EDT, [facility], Partial fill upon patient request if [...] 16:35:00 EST, 07/12/22 16:35:00 EST, [facility]/pharmacy #1026, 162.6, cm, 05/06/22 10:10:00 [...] of left hip joint Confirmed Active CP 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 11 Confirmed Active Rosacea, acne Confirmed Active Chronic pain of both shoulders Confirmed Active Tear of meniscus of left knee 12 Confirmed 12/2015 Active Tension headache Confirmed 11/15/08 Active 1diagnosed at [facility] 2correction date food esophagus impactation is [...] Team Personnel Name: Daron Allen RN Position: [facility] RN Member Role: Primary Care Nurse Name: Zhang Benitez MD Position: [facility] Physician - Primary Care Member Role: PCP Address: Address: [address] [place] [address]- Care Team Related Persons Name: DOMINGO ELIAS Name: BRANDY ROBERSON Address: [place] [address] Name: STATES, NO ONE
--- OUTSIDE RECORDS SUMMARY | 2023-12-23 10:11 | XMS_ITS | Continuity of Care Document ---
Author Organization [facility] Address [address] [place] [address]- Care Team Providers Care Beet End Supervisor Name Role Phone Emmanuel CARRILLO, Zhang Primary Care Physician [place] [facility] [place]23 [place] 10/21/23 [facility] [place] [place] [address]- [place] Allergies, Adverse Reactions, Alerts Substance Reaction Severity Status penicillin Active Immunizations Given and Recorded Vaccine Date Status Refusal Reason influenza virus vaccine, inactivated 07/13/22 Give n influenza virus vaccine, inactivated 04/23/21 Anival rded influenza virus vaccine, inactivated 05/17/18 Give n influenza virus vaccine, inactivated 06/30/16 Give n [id number] bivalent booster vax 07/09/22 Recorded SARS-CoV-2 (COVID-19) [...] 0 Refills, Maintenance, 04/13/23 12:35:00 EDT, Tablet, [facility]/pharmacy #1026, Partial fill upon [...] By Mouth, Daily, given by psych, Neil Bladeras, # 30 capsule, Refills 0, Maintenance, 11/27/18 [...] LIDS AVOID GETTING IN EYES LABEL IN [place], # 30 Gm, 0 Refills, Maintenance, 03/18/23 13:43:00 EDT, Cream, [facility]/pharmacy #1026, Partial fill upon patient request if the prescription is for a schedule II o... Start Date: 03/18/23 Status: Ordered lansoprazole 15 mg oral enteric coated capsule See Instructions, TOME 1 CAPSULA POR VIA ORAL TODOS [place] TAKE 30 MINS BEFORE BREAKFAST, # 90 capsule, 1 Refills, Maintenance, 05/31/23 8:54:00 EDT, [id number], 162.6, cm, 04/13/23 12:15:00 EDT, Height Start Date: 05/31/23 Status: Ordered loratadine 10 mg oral tablet See Instructions, TOME KARL TABLETA POR VIA ORAL TODOS [place] CUANDO SEA NECESARIO ALLERGY SYMPTOMS, # 30 tablet, Refills 5, Maintenance, 11/13/22 16:18:00 EDT, Instructions Replace Required Details, Route to Pharmacy Electronically, [id number],... Start Date: 11/13/22 Status: Ordered metroNIDAZOLE 0.75% topical gel 1 application, Topically, 2 times a day, Apply a thin film to affected area after washing., # 45 Gm, 11 Refills, Maintenance, Rosacea, 01/12/23 17:32:00 EDT, [facility]/pharmacy #1026, 1 application Topically 2 times a day,Instr:Apply a thin film to affected... Start Date: 01/12/23 Status: Ordered naltrexone 50 mg oral tablet 1 tablet = 50 mg, By Mouth, Daily, for 12 week(s), # 84 tablet, 0 Refills, Acute 12/27/23 12:22:00 EDT, 10/04/23 12:22:00 EST, Tablet, [facility]/pharmacy #1026, Partial fill upon patient request if the prescription is for a schedule II opioid drug., 162.6,... Start Date: 10/04/23 Stop Date: 12/27/23 Status: Ordered naphazoline 0.012% ophthalmic solution 1-2 drops, Eyes, Both, 4 times a day, PRN Red eyes, Getting skqj-wpm-wzdsnkj???name: Clear eyes, # 15 mL, 0 Refills, Maintenance, 03/31/23 13:56:00 EDT, . Start Date: 03/31/23 Status: Ordered nortriptyline 10 mg oral capsule 10 mg, 1, capsule, By Mouth, Daily at bedtime, # 30 capsule, Refills 2, Tot. Refills 2, Maintenance, 04/07/23 11:01:00 EDT, Route to Pharmacy Electronically, [facility]/pharmacy #1026, Partial fill upon [...] Every 4 hours, PRN Cough, label in faroese, # 180 mL, 1 Refills, Maintenance, 12/01/22 17:23:00 EDT, [facility], Partial fill upon patient request if [...] Confirmed Active CP N Care Management Program Supervisory Forester Fransisco Chacon [phone] Confirmed Active 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 11 Confirmed Active Rosacea, acne Confirmed Active Chronic pain of both shoulders Confirmed Active Tear of meniscus of left knee 12 Confirmed 12/2015 Active Tension headache Confirmed 11/15/08 Active 1diagnosed at [facility] 2correction date food esophagus impactation is [...] Primary Care Member Role: PCP Address: Address: [address] [place] [address]- Care Team Related Persons Name: DOMINGO ELIAS Name: BRANDY ROBERSON Address: home [address] [place] [address] Name: STATES, NO ONE
--- OUTSIDE RECORDS SUMMARY | 2023-12-23 10:11 | XMS_ITS | Continuity of Care Document ---
Author Organization [facility] Address [address] [place] [address]- Care Team Providers Care Family Law Mediator Name Role Phone Zhang Benitez MD Primary Care Physician Encounter [facility] [place] Date(s): 05/24/23 - 06/24/23 [facility]/[place] [address]- Attending Physician: Rika Young MD Admitting Physician: Rika Young MD Allergies, Adverse Reactions, Alerts Substance Reaction Severity Status penicillin Active Immunizations Given and Recorded Vaccine Date Status Refusal Reason influenza virus vaccine, inactivated 07/13/22 Give n influenza virus vaccine, inactivated 04/23/21 Anival rded influenza virus vaccine, inactivated 05/17/18 Give n influenza virus vaccine, inactivated 06/30/16 Give n [id number] bivalent booster vax 07/09/22 Recorded SARS-CoV-2 (COVID-19) [...] vaccine 7 09/14/06 Given 1Result Comment: [facility] AVLisa 2Admin Note: ADACEL VIS 06/25/08 [...] 0 Refills, Maintenance, 04/13/23 12:35:00 EDT, Tablet, [facility]/pharmacy #1026, Partial fill upon patient request [...] 04/07/23 17:49:00 EDT, Route to Pharmacy Electronically, [facility]/pharmacy #1026, 162.6, cm, 04/07/23 9:53:00 EDT, Height Start Date: 04/07/23 Status: Ordered hydrocortisone 1% topical cream 1 application, Topically, 2 times a day, EYE LIDS AVOID GETTING IN EYES LABEL IN [place]RD[place], # 30 Gm, 0 Refills, Maintenance, 03/18/23 13:43:00 EDT, Cream, [facility]/pharmacy #1026, Partial fill upon patient request if the prescription is for a schedule II o... Start Date: 03/18/23 Status: Ordered lansoprazole 15 mg oral enteric coated capsule See Instructions, TOME 1 CAPSULA POR VIA ORAL TODOS [place] TAKE 30 MINS BEFORE BREAKFAST, # 90 capsule, 1 Refills, Maintenance, 05/31/23 8:54:00 EDT, [id number], 162.6, cm, 04/13/23 12:15:00 EDT, Height Start Date: 05/31/23 Status: Ordered loratadine 10 mg oral tablet See Instructions, TOME KARL TABLETA POR VIA ORAL TODOS [place] CUANDO SEA NECESARIO ALLERGY SYMPTOMS, # 30 tablet, Refills 5, Maintenance, 11/13/22 16:18:00 EDT, Instructions Replace Required Details, Route to Pharmacy Electronically, [id number],... Start Date: 11/13/22 Status: Ordered metroNIDAZOLE 0.75% topical gel 1 application, Topically, 2 times a day, Apply a thin film to affected area after washing., # 45 Gm, 11 Refills, Maintenance, Rosacea, 01/12/23 17:32:00 EDT, [facility]/pharmacy #1026, 1 application Topically 2 times a day,Instr:Apply a thin film to affected... Start Date: 01/12/23 Status: Ordered naphazoline 0.012% ophthalmic solution 1-2 drops, Eyes, Both, 4 times a day, PRN Red eyes, Getting rblf-eep-zlfywin???name: Clear eyes, # 15 mL, 0 Refills, Maintenance, 03/31/23 13:56:00 EDT, . Start Date: 03/31/23 Status: Ordered nortriptyline 10 mg oral capsule 10 mg, 1, capsule, By Mouth, Daily at bedtime, # 30 capsule, Refills 2, Tot. Refills 2, Maintenance, 04/07/23 11:01:00 EDT, Route to Pharmacy Electronically, [facility]/pharmacy #1026, Partial fill upon patient request [...] mL, 1 Refills, Maintenance, 12/01/22 17:23:00 EDT, [facility], Partial fill upon patient request if [...] Stop 07/07/23 16:35:00 EST, 07/12/22 16:35:00 EST, [facility]/pharmacy #1026, 162.6, cm, 05/06/22 10:10:00 EDT, Height, 81.1, kg, 11/24/20 11:26:00 EDT, Dry Weight Start Date: 07/12/22 Stop Date: 07/07/23 Status: Ordered zolpidem 10 mg oral tablet 1 tablet = 10 mg, By Mouth, Daily at bedtime, given by psych, Neil Beardenifrenaldo, 0 Refills, Maintenance, 06/19/15 14:48:48 EST Start [...] Confirmed Active [facility] N Care Management Program Office Lead Fransisco Chacon [phone] Confirmed Active 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 11 Confirmed Active Rosacea, acne Confirmed Active Chronic pain of both shoulders Confirmed Active Tear of meniscus of left knee 12 Confirmed 12/2015 Active Tension headache Confirmed 11/15/08 Active 1diagnosed at [facility] 2correction date food esophagus impactation is 06/30/12 [...] Team Personnel Name: Daron Allen RN Position: [facility] RN Member Role: Primary Care Nurse Name: Zhang Benitez MD Position: [facility] Physician - Primary Care Member Role: PCP Address: Address: [address] [place] [address]- Care Team Related Persons Name: DOMINGO ELIAS Name: BRANDY ROBERSON Address: [address] [address] Name: PT STATES, NO ONE
--- OUTSIDE RECORDS SUMMARY | 2023-12-23 10:11 | XMS_ITS | Continuity of Care Document ---
Author Organization [facility] Address [address] [place] [address]- Care Team Providers Care Woodworking Belt Sander Name Role Phone Zhang Benitez MD Primary Care Physician Encounter [place] Date(s): 07/26/23 - 08/25/23 [facility] [place] [address]- [place] Allergies, Adverse Reactions, Alerts Substance Reaction Severity Status penicillin Active Immunizations Given and Recorded Vaccine Date Status Refusal Reason influenza virus vaccine, inactivated 07/13/22 Give n influenza virus vaccine, inactivated 04/23/21 Anival rded influenza virus vaccine, inactivated 05/17/18 Give n influenza virus vaccine, inactivated 06/30/16 Give n [id number] bivalent booster vax 07/09/22 Recorded SARS-CoV-2 (COVID-19) [...] 0 Refills, Maintenance, 04/13/23 12:35:00 EDT, Tablet, [facility]/pharmacy #1026, Partial fill upon patient request [...] 08/12/23 12:58:00 EST, Route to Pharmacy Electronically, [facility]/pharmacy #1026, 162.6, cm, 07/05/23 13:40:00 EST, Height Start Date: 08/12/23 Status: Ordered hydrocortisone 1% topical cream 1 application, Topically, 2 times a day, EYE LIDS AVOID GETTING IN EYES LABEL IN [place], # 30 Gm, 0 Refills, Maintenance, 03/18/23 13:43:00 EDT, Cream, [facility]/pharmacy #1026, Partial fill upon patient request if the prescription is for a schedule II o... Start Date: 03/18/23 Status: Ordered lansoprazole 15 mg oral enteric coated capsule See Instructions, TOME 1 CAPSULA POR VIA ORAL TODOS [place] TAKE 30 MINS BEFORE BREAKFAST, # 90 capsule, 1 Refills, Maintenance, 05/31/23 8:54:00 EDT, [id number], 162.6, cm, 04/13/23 12:15:00 EDT, Height Start Date: 05/31/23 Status: Ordered loratadine 10 mg oral tablet See Instructions, TOME KARL TABLETA POR VIA ORAL TODOS [place] CUANDO SEA NECESARIO ALLERGY SYMPTOMS, # 30 tablet, Refills 5, Maintenance, 11/13/22 16:18:00 EDT, Instructions Replace Required Details, Route to Pharmacy Electronically, [id number],... Start Date: 11/13/22 Status: Ordered metroNIDAZOLE 0.75% topical gel 1 application, Topically, 2 times a day, Apply a thin film to affected area after washing., # 45 Gm, 11 Refills, Maintenance, Rosacea, 01/12/23 17:32:00 EDT, [facility]/pharmacy #1026, 1 application Topically 2 times a day,Instr:Apply a thin film to affected... Start Date: 01/12/23 Status: Ordered naphazoline 0.012% ophthalmic solution 1-2 drops, Eyes, Both, 4 times a day, PRN Red eyes, Getting bptt-yod-yyfjycl???name: Clear eyes, # 15 mL, 0 Refills, Maintenance, 03/31/23 13:56:00 EDT, . Start Date: 03/31/23 Status: Ordered nortriptyline 10 mg oral capsule 10 mg, 1, capsule, By Mouth, Daily at bedtime, # 30 capsule, Refills 2, Tot. Refills 2, Maintenance, 04/07/23 11:01:00 EDT, Route to Pharmacy Electronically, [facility]/pharmacy #1026, Partial fill upon patient request [...] Every 4 hours, PRN Cough, label in pitcair[place] islander, # 180 mL, 1 Refills, Maintenance, 12/01/22 17:23:00 EDT, [facility], Partial fill upon patient request if [...] of left hip joint Confirmed Active CP [facility] Care Management Program Mail Distributor Fransisco Chacon [phone] Confirmed Active Poliomyelitis osteopathy of the right [...] Team Personnel Name: Daron Allen RN Position: [facility] RN Member Role: Primary Care Nurse Name: Zhang Benitez MD Position: [facility] Physician - Primary Care Member Role: PCP Address: Address: [address] [place] [address]- Care Team Related Persons Name: DOMINGO ELIAS Name: BRANDY ROBERSON Address: [place] [address] Name: STATES, NO ONE
--- OUTSIDE RECORDS SUMMARY | 2023-12-23 10:12 | XMS_ITS | Continuity of Care Document ---
Author Organization [facility] Address [address] [place] [address]- Care Team Providers Care Catalogue Maker Name Role Phone Zhang Benitez MD Primary Care Physician Encounter [facility] [place] Date(s): 08/11/23 - 09/10/23 [facility]/[place] [address]- [place] Allergies, Adverse Reactions, Alerts Substance Reaction Severity Status penicillin Active Immunizations Given and Recorded Vaccine Date Status Refusal Reason influenza virus vaccine, inactivated 07/13/22 Give n influenza virus vaccine, inactivated 04/23/21 Anival rded influenza virus vaccine, inactivated 05/17/18 Give n influenza virus vaccine, inactivated 06/30/16 Give n [id number] bivalent booster vax 07/09/22 Recorded SARS-CoV-2 (COVID-19) [...] 08/12/23 12:58:00 EST, Route to Pharmacy Electronically, [facility]/pharmacy #1026, 162.6, cm, 07/05/23 13:40:00 EST, Height Start Date: 08/12/23 Status: Ordered hydrocortisone 1% topical cream 1 application, Topically, 2 times a day, EYE LIDS AVOID GETTING IN EYES LABEL IN [place], # 30 Gm, 0 Refills, Maintenance, 03/18/23 [...] Refills, Maintenance, 05/31/23 8:54:00 EDT, [facility], 162.6, cm, 04/13/23 12:15:00 EDT, Height Start Date: 05/31/23 Status: Ordered loratadine 10 mg oral tablet See Instructions, TOME KARL TABLETA POR VIA ORAL TODOS [place] CUANDO SEA NECESARIO ALLERGY SYMPTOMS, # 30 tablet, Refills 5, Maintenance, 11/13/22 16:18:00 EDT, Instructions Replace Required Details, Route to Pharmacy Electronically, [id number],... Start Date: 11/13/22 Status: Ordered metroNIDAZOLE 0.75% [...] times a day, PRN Red eyes, Getting srdq-ewz-ktbjtsx???name: Clear eyes, # 15 mL, 0 Refills, [...] Every 4 hours, PRN Cough, label in kyrgyz, # 180 mL, 1 Refills, Maintenance, 12/01/22 17:23:00 EDT, [facility], Partial fill upon patient request if [...] [facility] Care Management Program Dye Range Operator Fransisco Chacon [phone] Confirmed Active 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 11 Confirmed Active Rosacea, acne Confirmed Active Chronic pain of both shoulders Confirmed Active Tear of meniscus of left knee 12 Confirmed 12/2015 Active Tension headache Confirmed 11/15/08 Active 1diagnosed at [facility] 2correction date food esophagus impactation [...] Team Personnel Name: Daron Allen RN Position: [facility] RN Member Role: Primary Care Nurse Name: Zhang Benitez MD Position: [facility] Physician - Primary Care Member Role: PCP Address: Address: [address] [place] [address]- Care Team Related Persons Name: DOMINGO ELIAS Name: BRANDY ROBERSON Address: [place] [address] Name: STATES, NO ONE
--- OUTSIDE RECORDS SUMMARY | 2023-12-23 10:12 | XMS_ITS | Continuity of Care Document ---
Author Organization [facility] Address [address] [place] [address]- Care Team Providers Care Claim Service Representative Name Role Phone Zhang Benitez MD Primary Care Physician Encounter [facility] [place] Date(s): 08/12/23 - 09/11/23 [facility]/[place] [id number]- [place] Allergies, Adverse Reactions, Alerts Substance Reaction Severity Status penicillin Active Immunizations Given and Recorded Vaccine Date Status Refusal Reason influenza virus vaccine, inactivated 07/13/22 Give n influenza virus vaccine, inactivated 04/23/21 Anival rded influenza virus vaccine, inactivated 05/17/18 Give n influenza virus vaccine, inactivated 06/30/16 Give n [id number] bivalent booster vax 07/09/22 Recorded SARS-CoV-2 (COVID-19) [...] Refills, Maintenance, 04/13/23 12:35:00 EDT, Tablet, [facility]/pharmacy #1026, Partial fill upon [...] 12:58:00 EST, Route to Pharmacy Electronically, [facility]/pharmacy #1026, 162.6, cm, 07/05/23 13:40:00 EST, Height Start Date: 08/12/23 Status: Ordered hydrocortisone 1% topical cream 1 application, Topically, 2 times a day, EYE LIDS AVOID GETTING IN EYES LABEL IN [place], # 30 Gm, 0 Refills, Maintenance, 03/18/23 13:43:00 EDT, Cream, [facility]/pharmacy #1026, Partial fill upon patient request if the prescription is for a schedule II o... Start Date: 03/18/23 Status: Ordered lansoprazole 15 mg oral enteric coated capsule See Instructions, TOME 1 CAPSULA POR VIA ORAL TODOS [place] TAKE 30 MINS BEFORE BREAKFAST, # 90 capsule, 1 Refills, Maintenance, 05/31/23 8:54:00 EDT, [facility], 162.6, cm, 04/13/23 12:15:00 EDT, Height Start Date: 05/31/23 Status: Ordered loratadine 10 mg oral tablet See Instructions, TOME KARL TABLETA POR VIA ORAL TODOS [place] CUANDO SEA NECESARIO ALLERGY SYMPTOMS, # 30 tablet, Refills 5, Maintenance, 11/13/22 16:18:00 EDT, Instructions Replace Required Details, Route to Pharmacy Electronically, [id number],... Start Date: 11/13/22 Status: Ordered metroNIDAZOLE 0.75% topical gel 1 application, Topically, 2 times a day, Apply a thin film to affected area after washing., # 45 Gm, 11 Refills, Maintenance, Rosacea, 01/12/23 17:32:00 EDT, [facility]/pharmacy #1026, 1 application Topically 2 times a day,Instr:Apply a thin film to affected... Start Date: 01/12/23 Status: Ordered naphazoline 0.012% ophthalmic solution 1-2 drops, Eyes, Both, 4 times a day, PRN Red eyes, Getting yqdg-wot-ghdumbh???name: Clear eyes, # 15 mL, 0 Refills, Maintenance, 03/31/23 13:56:00 EDT, . Start Date: 03/31/23 Status: Ordered nortriptyline 10 mg oral capsule 10 mg, 1, capsule, By Mouth, Daily at bedtime, # 30 capsule, Refills 2, Tot. Refills 2, Maintenance, 04/07/23 11:01:00 EDT, Route to Pharmacy Electronically, [facility]/pharmacy #1026, Partial fill upon [...] mL, 1 Refills, Maintenance, 12/01/22 17:23:00 EDT, [facility], Partial fill upon patient request [...] of left hip joint Confirmed Active CP [facility] Care Management Program Dual Hose Cementer Fransisco Chacon [phone] Confirmed Active 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 11 Confirmed Active Rosacea, acne Confirmed Active Chronic pain of both shoulders Confirmed Active Tear of meniscus of left knee 12 Confirmed 12/2015 Active Tension headache Confirmed 11/15/08 Active 1diagnosed at [facility] 2correction date food esophagus impactation is [...] Team Personnel Name: Daron Allen RN Position: [facility] RN Member Role: Primary Care Nurse Name: Zhang Benitez MD Position: [facility] Physician - Primary Care Member Role: PCP Address: Address: [address] [place] [address]- Care Team Related Persons Name: DOMINGO ELIAS Name: BRANDY ROBERSON Address: [place] [address] Name: STATES, NO ONE
--- OUTSIDE RECORDS SUMMARY | 2023-12-23 10:12 | XMS_ITS | Continuity of Care Document ---
Author Organization [facility] Address [address] [place] [address]- Care Team Providers Care Financial Analysis Advisor Name Role Phone Zhang Benitez MD Primary Care Physician [place] [facility] [place](s): 05/04/23 - 06/19/23 [facility] [address]- Attending Physician: Izzy Espinoza NP Admitting Physician: Izzy Espinoza NP Allergies, Adverse Reactions, Alerts Substance Reaction Severity Status penicillin Active Immunizations Given and Recorded Vaccine Date Status Refusal Reason influenza virus vaccine, inactivated 07/13/22 Give n influenza virus vaccine, inactivated 04/23/21 Anival rded influenza virus vaccine, inactivated 05/17/18 Give n influenza virus vaccine, inactivated 06/30/16 Give n [id number] bivalent booster vax 07/09/22 Recorded SARS-CoV-2 (COVID-19) [...] adult vaccine 7 09/14/06 Given 1Result Comment: [facility] AVLisa 2Admin Note: ADACEL VIS 06/25/08 GIVEN [...] LIDS AVOID GETTING IN EYES LABEL IN GUINEAN, # 30 Gm, 0 Refills, Maintenance, 03/18/23 [...] Refills, Maintenance, 05/31/23 8:54:00 EDT, [id number], 162.6, cm, 04/13/23 12:15:00 EDT, Height Start Date: 05/31/23 Status: Ordered loratadine 10 mg oral tablet See Instructions, TOME KARL TABLETA POR VIA ORAL TODOS [place] CUANDO SEA NECESARIO ALLERGY SYMPTOMS, # 30 tablet, Refills 5, Maintenance, 11/13/22 16:18:00 EDT, Instructions Replace Required Details, Route to Pharmacy Electronically, [id number],... 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
--- OUTSIDE RECORDS SUMMARY | 2023-12-23 10:13 | XMS_ITS | Continuity of Care Document ---
Author Organization [facility] Address [address] [place] [address]- Care Team Providers Care Hydraulic Specialist Name Role Phone Emmanuel CARRILLO, Zhang Primary Care Physician Encounter [facility] Date(s): 10/02/23 - 11/01/23 [facility] [place] [address]- [place] Allergies, Adverse Reactions, Alerts Substance Reaction Severity Status penicillin Active Immunizations Given and Recorded Vaccine Date Status Refusal Reason influenza virus vaccine, inactivated 07/13/22 Give n influenza virus vaccine, inactivated 04/23/21 Anival rded influenza virus vaccine, inactivated 05/17/18 Give n influenza virus vaccine, inactivated 06/30/16 Give n [id number] bivalent booster vax 07/09/22 Recorded SARS-CoV-2 (COVID-19) [...] 0 Refills, Maintenance, 04/13/23 12:35:00 EDT, Tablet, [facility]/pharmacy #[id number], Partial fill upon patient request if [...] 5 Refills, Maintenance, 10/31/23 13:51:00 EDT, Gel, [facility]/pharmacy #[id number], ., 162.6, cm, 10/31/23 11:03:00 EDT, [...] mL, 11 Refills, Maintenance, 01/12/23 17:33:00 EDT, [facility]/pharmacy #[id number], 30, SPRAY 2 SPRAYS INTO EACH [...] capsule, 3 Refills, Maintenance, 10/31/23 13:59:00 EDT, [facility]/pharmacy #1026, 162.6, cm, 10/31/23 11:03:00 EDT, Height Start Date: 10/31/23 Status: Ordered lidocaine 5% topical ointment 1 application, Topically, 4 times a day, PRN pain, for 7 days, Apply a thin layer to painful area. Wash hands thoroughly after application, # 50 Gm, 2 Refills, Acute 11/14/23 15:16:00 EDT, 10/24/23 15:16:00 EDT, Ointment, [facility]/pharmacy #1026, label in... Start Date: 10/24/23 Stop Date: 11/14/23 Status: Ordered meloxicam 15 mg oral tablet 1 tablet = 15 mg, By Mouth, Daily, with food Discontinue ibuprofen 800 mg, # 30 tablet, 1 Refills, Maintenance, 10/31/23 13:53:00 EDT, Tablet, [facility]/pharmacy #1026, Partial fill upon patient request ifthe prescription is for a schedule II opioid lorene... Start Date: 10/31/23 Status: Ordered metroNIDAZOLE 0.75% topical gel 1 application, Topically, 2 times a day, Apply a thin film to affected area after washing., # 45 Gm, 11 Refills, Maintenance, Rosacea, 01/12/23 17:32:00 EDT, [facility]/pharmacy #1026, 1 application Topically 2 times a day,Instr:Apply a thin film to affected... Start Date: 01/12/23 Status: Ordered naphazoline 0.012% ophthalmic solution 1-2 drops, Eyes, Both, 4 times a day, PRN Red eyes, Getting skww-frr-qulnrtf???name: Clear eyes, # 15 mL, 0 Refills, Maintenance, 03/31/23 13:56:00 EDT, . Start Date: 03/31/23 Status: Ordered nortriptyline 10 mg oral capsule 10 mg, 1, capsule, By Mouth, Daily at bedtime, # 30 capsule, Refills 2, Tot. Refills 2, Maintenance, 04/07/23 11:01:00 EDT, Route to Pharmacy Electronically, [facility]/pharmacy #1026, Partial fill upon patient request if [...] Acute 12/15/23 14:02:00 EDT, 10/31/23 14:00:00 EDT, [facility], Partial fill upon patient [...] Pain of left hip joint Confirmed Active [facility] Care Management Program Ladle Repairer Fransisco Chacon [phone] Confirmed Active Rosacea, acne Confirmed Active Chronic pain of both shoulders Confirmed Active Tear of meniscus of left knee 11 Confirmed 12/2015 Active Tension headache Confirmed 11/15/08 Active 1diagnosed at [facility] 2correction date food esophagus impactation is 06/30/12 [...] Team Personnel Name: Daron Allen RN Position: [facility] RN Member Role: Primary Care Nurse Name: Zhang Benitez MD Position: [facility] Physician - Primary Care Member Role: PCP Address: Address: [address] [place] [address]- Care Team Related Persons Name: DOMINGO ELIAS Name: BRANDY ROBERSON Address: [place] [address] Name: PT STATES, NO ONE
--- OUTSIDE RECORDS SUMMARY | 2023-12-23 10:13 | XMS_ITS | Continuity of Care Document ---
Author Organization [facility] Address [address] [place] [address]- Care Team Providers Care Mental Health Program Manager Name Role Phone Zhang Benitez MD Primary Care Physician [place] [facility] [place](s): 07/06/23 - 08/05/23 [facility] [address]- [place] Allergies, Adverse Reactions, Alerts Substance Reaction Severity Status penicillin Active Immunizations Given and Recorded Vaccine Date Status Refusal Reason influenza virus vaccine, inactivated 07/13/22 Give n influenza virus vaccine, inactivated 04/23/21 Anival rded influenza virus vaccine, inactivated 05/17/18 Give n influenza virus vaccine, inactivated 06/30/16 Give n [id number] bivalent booster vax 07/09/22 Recorded SARS-CoV-2 (COVID-19) [...] 0 Refills, Maintenance, 04/13/23 12:35:00 EDT, Tablet, [facility]/pharmacy #1026, Partial fill upon patient request if [...] tablet, 1 Refills, Maintenance, 05/27/23 11:31:00 EDT, [facility]/pharmacy #1026, TAKE ONE T... Start Date: 05/27/23 [...] mL, 11 Refills, Maintenance, 01/12/23 17:33:00 EDT, [facility]/pharmacy #1026, 30, SPRAY 2 SPRAYS INTO EACH NOSTRIL TODOS [place], 162.6, cm, 01/12/23 14:53:00 EDT, Height Start Date: 01/12/23 Status: Ordered gabapentin 300 mg oral capsule 300 mg, 1, capsule, By Mouth, Daily, PRN, # 30 capsule, Refills 5, Tot. Refills 5, Maintenance, Pain , Moderate, 04/07/23 17:49:00 EDT, Route to Pharmacy Electronically, [facility]/pharmacy #1026, 162.6, cm, 04/07/23 9:53:00 EDT, Height Start Date: 04/07/23 Status: Ordered hydrocortisone 1% topical cream 1 application, Topically, 2 times a day, EYE LIDS AVOID GETTING IN EYES LABEL IN ROMANSH, # 30 Gm, 0 Refills, Maintenance, 03/18/23 13:43:00 EDT, Cream, [facility]/pharmacy #1026, Partial fill upon patient request if the prescription is for a schedule II o... Start Date: 03/18/23 Status: Ordered lansoprazole 15 mg oral enteric coated capsule See Instructions, TOME 1 CAPSULA POR VIA ORAL TODOS [place] TAKE 30 MINS BEFORE BREAKFAST, # 90 capsule, 1 Refills, Maintenance, 05/31/23 8:54:00 EDT, [facility], 162.6, cm, 04/13/23 12:15:00 EDT, Height Start Date: 05/31/23 Status: Ordered loratadine 10 mg oral tablet See Instructions, TOME KARL TABLETA POR VIA ORAL TODOS [place] CUANDO SEA NECESARIO ALLERGY SYMPTOMS, # 30 tablet, Refills 5, Maintenance, 11/13/22 16:18:00 EDT, Instructions Replace Required Details, Route to Pharmacy Electronically, [id number],... Start Date: 11/13/22 Status: Ordered metroNIDAZOLE 0.75% topical gel 1 application, Topically, 2 times a day, Apply a thin film to affected area after washing., # 45 Gm, 11 Refills, Maintenance, Rosacea, 01/12/23 17:32:00 EDT, [facility]/pharmacy #1026, 1 application Topically 2 times a day,Instr:Apply a thin film to affected... Start Date: 01/12/23 Status: Ordered naphazoline 0.012% ophthalmic solution 1-2 drops, Eyes, Both, 4 times a day, PRN Red eyes, Getting plvu-xxi-ueupjao???name: Clear eyes, # 15 mL, 0 Refills, Maintenance, 03/31/23 13:56:00 EDT, . Start Date: 03/31/23 Status: Ordered nortriptyline 10 mg oral capsule 10 mg, 1, capsule, By Mouth, Daily at bedtime, # 30 capsule, Refills 2, Tot. Refills 2, Maintenance, 04/07/23 11:01:00 EDT, Route to Pharmacy Electronically, [facility]/pharmacy #1026, Partial fill upon patient request if the prescription is for a schedule I... Start Date: 04/07/23 Status: Ordered oxybutynin 5 mg/24 hours oral tablet, extended release 1 tablet = 5 mg, By Mouth, Daily, Given by urologist, Dr. Pasquael Merrill, # 30 tablet, 0 Refills, Maintenance, [...] mL, 1 Refills, Maintenance, 12/01/22 17:23:00 EDT, 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 11 Confirmed Active Rosacea, acne Confirmed Active Chronic pain of both shoulders Confirmed Active Tear of meniscus of left knee 12 Confirmed 12/2015 Active Tension headache Confirmed 11/15/08 Active 1diagnosed at [facility] 2correction date food esophagus impactation [...] Team Personnel Name: Daron Allen RN Position: [facility] RN Member Role: Primary Care Nurse Name: Zhang Benitez MD Position: [facility] Physician - Primary Care Member Role: PCP Address: Address: [address] [place] [address]- Care Team Related Persons Name: DOMINGO ELIAS Name: BRANDY ROBERSON Address: [place] [address] Name: STATES, NO ONE
--- OUTSIDE RECORDS SUMMARY | 2023-12-23 10:13 | XMS_ITS | Continuity of Care Document ---
Author Organization [facility] Address [address] [place] [address]- Care Team Providers Care Impersonator Character Name Role Phone Emmanuel CARRILLO, Zhang Primary Care Physician Encounter [facility] Date(s): 09/20/23 - 10/20/23 [facility]/[address] [address]- [place] Allergies, Adverse Reactions, Alerts Substance Reaction Severity Status penicillin Active Immunizations Given and Recorded Vaccine Date Status Refusal Reason influenza virus vaccine, inactivated 07/13/22 Give n influenza virus vaccine, inactivated 04/23/21 Anival rded influenza virus vaccine, inactivated 05/17/18 Give n influenza virus vaccine, inactivated 06/30/16 Give n [id number] bivalent booster vax 07/09/22 Recorded SARS-CoV-2 (COVID-19) [...] Refills, Maintenance, 05/27/23 11:31:00 EDT, [facility]/pharmacy #1026, TAKE ONE T... Start Date: [...] LIDS AVOID GETTING IN EYES LABEL IN PASHTO, # 30 Gm, 0 Refills, Maintenance, 03/18/23 [...] Refills, Maintenance, 05/31/23 8:54:00 EDT, [facility], 162.6, cm, 04/13/23 12:15:00 EDT, Height Start Date: 05/31/23 Status: Ordered loratadine 10 mg oral tablet See Instructions, TOME KARL TABLETA POR VIA ORAL TODOS [place] CUANDO SEA NECESARIO ALLERGY SYMPTOMS, # 30 tablet, Refills 5, Maintenance, 11/13/22 16:18:00 EDT, Instructions Replace Required Details, Route to Pharmacy Electronically, [id number],... Start Date: 11/13/22 Status: Ordered metroNIDAZOLE 0.75% [...] 12/27/23 12:22:00 EDT, 10/04/23 12:22:00 EST, Tablet, [facility]/pharmacy #1026, Partial fill upon patient request if the prescription is for a schedule II opioid drug., 162.6,... 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 11 Confirmed Active Rosacea, acne Confirmed Active Chronic pain of both shoulders Confirmed Active Tear of meniscus of left knee 12 Confirmed 12/2015 Active Tension headache Confirmed 4/10/09 Active 1diagnosed at [facility] 2correction date food esophagus impactation is 06/30/12 [...] Care team information Care Team Personnel Name: Draon Allen RN Position: [facility] RN Member Role: Primary Care Nurse Name: Zhang Benitez MD Position: [facility] Physician - Primary Care Member Role: PCP Address: Address: [address] [place] [address]- Care Team Related Persons Name: DMOINGO ELIAS Name: BRANDY ROBERSON Address: [place] [address] Name: STATES, NO ONE
--- OUTSIDE RECORDS SUMMARY | 2023-12-23 10:13 | XMS_ITS | Continuity of Care Document ---
Author Organization [facility] Address [address] [place] [address]- Care Team Providers Care Order Processing Clerk Name Role Phone Zhang Benitez MD Primary Care Physician [place] [facility] [place](s): 05/06/23 - 06/05/23 [facility] [place] [address]- [place] Allergies, Adverse Reactions, Alerts Substance Reaction Severity Status penicillin Active Immunizations Given and Recorded Vaccine Date Status Refusal Reason influenza virus vaccine, inactivated 07/13/22 Give n influenza virus vaccine, inactivated 04/23/21 Anival rded influenza virus vaccine, inactivated 05/17/18 Give n influenza virus vaccine, inactivated 06/30/16 Give n [id number] bivalent booster vax 07/09/22 Recorded SARS-CoV-2 (COVID-19) [...] 0 Refills, Maintenance, 04/13/23 12:35:00 EDT, Tablet, [facility]/pharmacy #1026, Partial fill upon patient request [...] 04/07/23 17:49:00 EDT, Route to Pharmacy Electronically, [facility]/pharmacy #1026, 162.6, cm, 04/07/23 9:53:00 EDT, Height Start Date: 04/07/23 Status: Ordered hydrocortisone 1% topical cream 1 application, Topically, 2 times a day, EYE LIDS AVOID GETTING IN EYES LABEL IN MALTESE, # 30 Gm, 0 Refills, Maintenance, 03/18/23 13:43:00 EDT, Cream, [facility]/pharmacy #1026, Partial fill upon patient request if the prescription is for a schedule II o... Start Date: 03/18/23 Status: Ordered lansoprazole 15 mg oral enteric coated capsule See Instructions, TOME 1 CAPSULA POR VIA ORAL TODOS [place] TAKE 30 MINS BEFORE BREAKFAST, # 90 capsule, 1 Refills, Maintenance, 05/31/23 8:54:00 EDT, [facility], 162.6, cm, 04/13/23 12:15:00 EDT, Height Start Date: 05/31/23 Status: Ordered loratadine 10 mg oral tablet See Instructions, TOME KARL TABLETA POR VIA ORAL TODOS [place] CUANDO SEA NECESARIO ALLERGY SYMPTOMS, # 30 tablet, Refills 5, Maintenance, 11/13/22 16:18:00 EDT, Instructions Replace Required Details, Route to Pharmacy Electronically, [id number],... Start Date: 11/13/22 Status: Ordered metroNIDAZOLE 0.75% topical gel 1 application, Topically, 2 times a day, Apply a thin film to affected area after washing., # 45 Gm, 11 Refills, Maintenance, Rosacea, 01/12/23 17:32:00 EDT, [facility]/pharmacy #1026, 1 application Topically 2 times a day,Instr:Apply a thin film to affected... Start Date: 01/12/23 Status: Ordered naphazoline 0.012% ophthalmic solution 1-2 drops, Eyes, Both, 4 times a day, PRN Red eyes, Getting asns-mjn-kndjiqu???name: Clear eyes, # 15 mL, 0 Refills, Maintenance, 03/31/23 13:56:00 EDT, . Start Date: 03/31/23 Status: Ordered nortriptyline 10 mg oral capsule 10 mg, 1, capsule, By Mouth, Daily at bedtime, # 30 capsule, Refills 2, Tot. Refills 2, Maintenance, 04/07/23 11:01:00 EDT, Route to Pharmacy Electronically, [facility]/pharmacy #1026, Partial fill upon patient request [...] Every 4 hours, PRN Cough, label in bulgarian, # 180 mL, 1 Refills, Maintenance, 12/01/22 17:23:00 EDT, [facility], Partial fill upon patient request if [...] Stop 07/07/23 16:35:00 EST, 07/12/22 16:35:00 EST, [facility]/pharmacy #1026, 162.6, cm, 05/06/22 10:10:00 EDT, [...] left hip joint Confirmed Active CP [facility] Care Management Program Shirt Operator Fransisco Oswaldo [phone] Confirmed Active 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 11 Confirmed Active Rosacea, acne Confirmed Active Chronic pain of both shoulders Confirmed Active Tear of meniscus of left knee 12 Confirmed 12/2015 Active Tension headache Confirmed 11/15/08 Active 1diagnosed at [facility] 2correction date food esophagus impactation [...] Team Personnel Name: Daron Allen RN Position: [facility] RN Member Role: Primary Care Nurse Name: Zhang Benitez MD Position: [facility] Physician - Primary Care Member Role: PCP Address: Address: [address] [place] [address]- Care Team Related Persons Name: DOMINGO ELIAS Name: BRANDY ROBERSON Address: [place] [address] Name: STATES, NO ONE
--- OUTSIDE RECORDS SUMMARY | 2023-12-23 10:13 | XMS_ITS | Continuity of Care Document ---
Author Organization [facility] Address [address] [place] [address]- Care Team Providers Care Lumber Stacker Driver Name Role Phone Emmanuel CARRILLO, Zhang Primary Care Physician [place] [facility] [place] Date(s): 09/21/23 - 10/22/23 [facility]/[place] [address]- Attending Physician: Eloy Ferrera NP Admitting Physician: Eloy Ferrera NP Allergies, Adverse Reactions, Alerts Substance Reaction Severity Status penicillin Active Immunizations Given and Recorded Vaccine Date Status Refusal Reason influenza virus vaccine, inactivated 07/13/22 Give n influenza virus vaccine, inactivated 04/23/21 Anival rded influenza virus vaccine, inactivated 05/17/18 Give n influenza virus vaccine, inactivated 06/30/16 Give n [id number] bivalent booster vax 07/09/22 Recorded SARS-CoV-2 (COVID-19) [...] adult vaccine 7 09/14/06 Given 1Result Comment: [facility] AVLisa 2Admin Note: [...] 0 Refills, Maintenance, 04/13/23 12:35:00 EDT, Tablet, [facility]/pharmacy #1026, Partial fill upon patient [...] tablet, 1 Refills, Maintenance, 05/27/23 11:31:00 EDT, [facility]/pharmacy #1026, TAKE ONE T... Start [...] 5 Refills, Maintenance, 04/07/23 15:40:00 EDT, Gel, [facility]/pharmacy #1026, ., 162.6, cm, 04/07/23 9:53:00 EDT, [...] mL, 11 Refills, Maintenance, 01/12/23 17:33:00 EDT, [facility]/pharmacy #1026, 30, SPRAY 2 SPRAYS INTO EACH [...] LIDS AVOID GETTING IN EYES LABEL IN ZAMBIAN, # 30 Gm, 0 Refills, Maintenance, 03/18/23 13:43:00 EDT, Cream, [facility]/pharmacy #1026, Partial fill upon patient request if the prescription is for a schedule II o... Start Date: 03/18/23 Status: Ordered lansoprazole 15 mg oral enteric coated capsule See Instructions, TOME 1 CAPSULA POR VIA ORAL TODOS [place] TAKE 30 MINS BEFORE BREAKFAST, # 90 capsule, 1 Refills, Maintenance, 05/31/23 8:54:00 EDT, [facility], 162.6, cm, 04/13/23 12:15:00 EDT, Height Start Date: 05/31/23 Status: Ordered loratadine 10 mg oral tablet See Instructions, TOME KARL TABLETA POR VIA ORAL TODOS [place] CUANDO SEA NECESARIO ALLERGY SYMPTOMS, # 30 tablet, Refills 5, Maintenance, 11/13/22 16:18:00 EDT, Instructions Replace Required Details, Route to Pharmacy Electronically, [id number],... Start Date: 11/13/22 Status: Ordered metroNIDAZOLE 0.75% [...] 12/27/23 12:22:00 EDT, 10/04/23 12:22:00 EST, Tablet, [facility]/pharmacy #1026, Partial fill upon patient request if the prescription is for a schedule II opioid drug., 162.6,... Start Date: 10/04/23 Stop Date: 12/27/23 Status: Ordered naphazoline 0.012% ophthalmic solution 1-2 drops, Eyes, Both, 4 times a day, PRN Red eyes, Getting yoha-akt-jhxtriz???name: Clear eyes, # 15 mL, 0 Refills, Maintenance, 03/31/23 13:56:00 EDT, . Start Date: 03/31/23 Status: Ordered nortriptyline 10 mg oral capsule 10 mg, 1, capsule, By Mouth, Daily at bedtime, # 30 capsule, Refills 2, Tot. Refills 2, Maintenance, 04/07/23 11:01:00 EDT, Route to Pharmacy Electronically, [facility]/pharmacy #1026, Partial fill upon patient [...] mL, 1 Refills, Maintenance, 12/01/22 17:23:00 EDT, [facility], Partial fill upon patient request if [...] tablet, 3 Refills, Maintenance, TOME KARL TABLETA RAY COLON, 10/03/23 16:39:00 EST, 162.6, cm, 07/05/23 [...] of left hip joint Confirmed Active [facility] Care Management Program Corporate Recruiter Fransisco Chacon [phone] Confirmed Active Poliomyelitis osteopathy of the right [...] Name: Daron Allen RN Position: [facility] RN Member Role: Primary Care Nurse Name: Zhang Benitez MD Position: [facility] Physician - Primary Care Member Role: PCP Address: Address: [address] [place] [address]- Care Team Related Persons Name: DOMINGO ELIAS Name: BRANDY ROBERSON Address: [address] [place] [address] Name: PT STATES, NO ONE
--- OUTSIDE RECORDS SUMMARY | 2023-12-23 10:14 | XMS_ITS | Continuity of Care Document ---
Author Organization [facility] Address [address] [place] [address]- Care Team Providers Care Hammerer Tab Name Role Phone Zhang Benitez MD Primary Care Physician [place] [facility] [place]23 [place] 08/06/23 [facility] [address]- [place] Allergies, Adverse Reactions, Alerts Substance Reaction Severity Status penicillin Active Immunizations Given and Recorded Vaccine Date Status Refusal Reason influenza virus vaccine, inactivated 07/13/22 Give n influenza virus vaccine, inactivated 04/23/21 Anival rded influenza virus vaccine, inactivated 05/17/18 Give n influenza virus vaccine, inactivated 06/30/16 Give n [id number] bivalent booster vax 07/09/22 Recorded SARS-CoV-2 (COVID-19) [...] tablet, 1 Refills, Maintenance, 05/27/23 11:31:00 EDT, [facility]/pharmacy #[id number], TAKE ONE T... Start Date: [...] LIDS AVOID GETTING IN EYES LABEL IN DANISH, # 30 Gm, 0 Refills, Maintenance, 03/18/23 [...] Refills, Maintenance, 05/31/23 8:54:00 EDT, [id number], 162.6, cm, 04/13/23 12:15:00 EDT, Height Start Date: 05/31/23 Status: Ordered loratadine 10 mg oral tablet See Instructions, TOME KARL TABLETA POR VIA ORAL TODOS [place] CUANDO SEA NECESARIO ALLERGY SYMPTOMS, # 30 tablet, Refills 5, Maintenance, 11/13/22 16:18:00 EDT, Instructions Replace Required Details, Route to Pharmacy Electronically, [id number],... 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 RN Member Role: Primary Care Nurse Name: Zhang Benitez MD Position: [facility] Physician - Primary Care Member Role: PCP Address: Address: [address] [place] [address]- Care Team Related Persons Name: DOMINGO ELIAS Name: BRANDY ROBERSON Address: [place] [address] Name: STATES, NO ONE
--- OUTSIDE RECORDS SUMMARY | 2023-12-23 10:14 | XMS_ITS | Continuity of Care Document ---
Author Organization [facility] Address [address] [place] [address]- Care Team Providers Care Community Health Advocate Name Role Phone Emmanuel CARRILLO, Zhang Primary Care Physician [place] [facility] [place]21/23 - 10/21/23 [facility] [place] [address]- [place] Allergies, Adverse Reactions, Alerts Substance Reaction Severity Status penicillin Active Immunizations Given and Recorded Vaccine Date Status Refusal Reason influenza virus vaccine, inactivated 07/13/22 Give n influenza virus vaccine, inactivated 04/23/21 Anival rded influenza virus vaccine, inactivated 05/17/18 Give n influenza virus vaccine, inactivated 06/30/16 Give n [id number] bivalent booster vax 07/09/22 Recorded SARS-CoV-2 (COVID-19) [...] 0 Refills, Maintenance, 04/13/23 12:35:00 EDT, Tablet, [facility]/pharmacy #[id number], [...] LIDS AVOID GETTING IN EYES LABEL IN KENYAN, # 30 Gm, 0 Refills, Maintenance, 03/18/23 13:43:00 EDT, Cream, [facility]/pharmacy #[id number], Partial fill upon patient request if the prescription is for a schedule II o... Start Date: 03/18/23 Status: Ordered lansoprazole 15 mg oral enteric coated capsule See Instructions, TOME 1 CAPSULA POR VIA ORAL TODOS [place] TAKE 30 MINS BEFORE BREAKFAST, # 90 capsule, 1 Refills, Maintenance, 05/31/23 8:54:00 EDT, [id number], 162.6, cm, 04/13/23 12:15:00 EDT, Height Start Date: 05/31/23 Status: Ordered loratadine 10 mg oral tablet See Instructions, TOME KARL TABLETA POR VIA ORAL TODOS [place] CUANDO SEA NECESARIO ALLERGY SYMPTOMS, # 30 tablet, Refills 5, Maintenance, 11/13/22 16:18:00 EDT, Instructions Replace Required Details, Route to Pharmacy Electronically, [id number],... Start Date: 11/13/22 Status: Ordered metroNIDAZOLE 0.75% [...] 12/27/23 12:22:00 EDT, 10/04/23 12:22:00 EST, Tablet, [facility]/pharmacy #[id number], Partial fill upon patient request if the prescription is for a schedule II opioid drug., 162.6,... Start Date: 10/04/23 Stop Date: 12/27/23 Status: Ordered naphazoline 0.012% ophthalmic solution 1-2 drops, Eyes, Both, 4 times a day, PRN Red eyes, Getting btnr-gfw-cdkjumw???name: Clear eyes, # 15 mL, 0 Refills, Maintenance, 03/31/23 13:56:00 EDT, . Start Date: 03/31/23 Status: Ordered nortriptyline 10 mg oral capsule 10 mg, 1, capsule, By Mouth, Daily at bedtime, # 30 capsule, Refills 2, Tot. 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 11 Confirmed Active Rosacea, acne Confirmed Active Chronic pain of both shoulders Confirmed Active Tear of meniscus of left knee 12 Confirmed 12/2015 Active Tension headache Confirmed 11/15/08 Active 1diagnosed at [facility] 2correction date food esophagus impactation is [...] Team Personnel Name: Daron Allen RN Position: [facility] RN Member Role: Primary Care Nurse Name: Zhang Benitez MD Position: [facility] Physician - Primary Care Member Role: PCP Address: Address: [address] [place] [address]- Care Team Related Persons Name: DOMINGO ELIAS Name: BRANDY ROBERSON Address: [address] [place] [address] Name: STATES, NO ONE
--- OUTSIDE RECORDS SUMMARY | 2023-12-23 10:15 | XMS_ITS | Continuity of Care Document ---
Author Organization [facility] Address [address] [place] [address]- Care Team Providers Care Dry Wall Applicator Name Role Phone Zhang Benitez MD Primary Care Physician Encounter [facility] [place] Date(s): 10/31/23 - 11/30/23 [facility]/[address] [address]- Attending Physician: Admtr, Ar8 Allergies, Adverse Reactions, Alerts Substance Reaction Severity Status penicillin Active Immunizations Given and Recorded Vaccine Date Status Refusal Reason influenza virus vaccine, inactivated 07/13/22 Give n influenza virus vaccine, inactivated 04/23/21 Anival rded influenza virus vaccine, inactivated 05/17/18 Give n influenza virus vaccine, inactivated 06/30/16 Give n [id number] bivalent booster vax 07/09/22 Recorded SARS-CoV-2 (COVID-19) [...] 0 Refills, Maintenance, 04/13/23 12:35:00 EDT, Tablet, [facility]/pharmacy #[id number], Partial fill upon patient [...] 5 Refills, Maintenance, 10/31/23 13:51:00 EDT, Gel, [facility]/pharmacy #[id number], ., 162.6, cm, 10/31/23 11:03:00 EDT, [...] mL, 11 Refills, Maintenance, 01/12/23 17:33:00 EDT, [facility]/pharmacy #[id number], 30, SPRAY 2 SPRAYS [...] capsule, 3 Refills, Maintenance, 10/31/23 13:59:00 EDT, [facility]/pharmacy #1026, 162.6, cm, 10/31/23 11:03:00 EDT, Height Start Date: 10/31/23 Status: Ordered meloxicam 15 mg oral tablet 1 tablet = 15 mg, By Mouth, Daily, with food Discontinue ibuprofen 800 mg, # 30 tablet, 1 Refills, Maintenance, 10/31/23 13:53:00 EDT, Tablet, [facility]/pharmacy #[id number], Partial fill upon patient request ifthe prescription is for a schedule II opioid lorene... Start Date: 10/31/23 Status: Ordered metroNIDAZOLE 0.75% topical gel 1 application, Topically, 2 times a day, Apply a thin film to affected area after washing., # 45 Gm, 11 Refills, Maintenance, Rosacea, 01/12/23 17:32:00 EDT, [facility]/pharmacy #[id number], 1 application Topically 2 times a day,Instr:Apply a thin film to affected... Start Date: 01/12/23 Status: Ordered naphazoline 0.012% ophthalmic solution 1-2 drops, Eyes, Both, 4 times a day, PRN Red eyes, Getting xnhu-xod-yrzbppp???name: Clear eyes, # 15 mL, 0 Refills, Maintenance, 03/31/23 13:56:00 EDT, . Start Date: 03/31/23 Status: Ordered nortriptyline 10 mg oral capsule 10 mg, 1, capsule, By Mouth, Daily at bedtime, # 30 capsule, Refills 2, Tot. Refills 2, Maintenance, 04/07/23 11:01:00 EDT, Route to Pharmacy Electronically, [facility]/pharmacy #[id number], Partial fill upon patient request if the prescription is for a schedule I... Start Date: 04/07/23 Status: Ordered oxybutynin 5 mg/24 hours oral tablet, extended release 1 tablet = 5 mg, By Mouth, Daily, Given by urologist, Dr. Pasquale Merrill, # 30 tablet, 0 Refills, Maintenance, 03/31/23 14:04:00 EDT, ER Tablet Start Date: 8/24/23 Status: Ordered QUEtiapine 300 mg oral tablet [...] of left hip joint Confirmed Active [facility] Care Management Program Bingo Clerk Fransisco Chacon [phone] Confirmed Active Rosacea, acne Confirmed Active Chronic pain of both shoulders Confirmed Active Tear of meniscus of left knee 11 Confirmed 12/2015 Active Tension headache Confirmed 11/15/08 Active 1diagnosed at [facility] 2correction date food esophagus impactation [...] Event Display: Radiology Results Scanned Authored Date: [id number] * Ana Cristina De La Rosa: PERFORM Event Display: Radiology Results Scanned Authored Date: [id number] Patient Care team information Care Team Personnel Name: Daron Allen RN Position: [facility] RN Member Role: Primary Care Nurse Name: Zhang Benitez MD Position: [facility] Physician - Primary Care Member Role: PCP Address: Address: [address] [place] [address]- Care Team Related Persons Name: DOMINGO ELIAS Name: BRANDY ROBERSON Address: [address] [address] Name: PT STATES, NO ONE
== END 2023-12-23 11:58 | disposition home or self-care (01) ==
LOC: HO.HUSH 10:04
PROVIDERS: PCP Family Medicine; Visit Provider Urology
DX: C61 Malignant neoplasm of prostate (principal); N52.01 Erectile dysfunction due to arterial insufficiency
CPT/HCPCS: 99213

== ENCOUNTER → 2023-12-23 10:04 | Outpatient (BNVA) | payer OTHER, SELFPAY | PROVIDERS: PCP Family Medicine; Visit Provider Urology ==

== ENCOUNTER 2024-01-25 10:50 | Outpatient (REF) | payer OTHER, SELFPAY ==
[2024-01-25 12:03] LABS: Blood Urea Nitrogen 11 mg/dL (9-16); Estimated Glomerular Filt Rate > 60
== END 2024-01-25 10:51 | disposition home or self-care (01) ==
LOC: HO.10HDL 10:50
PROVIDERS: Visit Provider Urology
DX: C61 Malignant neoplasm of prostate (principal)
CPT/HCPCS: 36415; 82565; 84520

== ENCOUNTER 2024-04-04 12:56 | Outpatient (AMB) | payer OTHER, SELFPAY ==
--- NOTE | 2024-04-04 13:17 | MHC.OFFVIS ---
Intake Visit Reasons: MRI f/u and Med Check Intake Note: Patient is Present for Follow Up MRI/Med review Urology Medication: Sildenafil,Oxybutynin, Finasteride, Tadalafil Antibiotic Allergies: Penicillin Blood Thinners:None Eight Arm Operator Required: Yes Eight Arm Operator Language: Albanian Information Interpreted: clinical only Accompanied by: Self / Same As Patient Allergies penicillin V Allergy (Intermediate, Verified 04/04/24 13:18) rash Medication List - Last Reconciled 02/23/24 by Pasquale Merrill MD bupropion HCl 150 mg PO DAILY bupropion HCl SR 300 mg PO DAILY cabergoline 0.25 mg PO 2XW cholecalciferol (vitamin D3) 25 mcg PO DAILY clonazepam 0.5 mg PO BID disulfiram mg PO emtricitabine-tenofovir alafen 200-25 mg (Descovy) 1 tab PO DAILY finasteride 5 mg PO DAILY 90 days fluoxetine 10 mg PO DAILY fluticasone propionate 50 mcg/actuation 2 sprays intranasal DAILY gabapentin 400 mg PO DAILY ketoconazole 2% 1 appl topical levofloxacin 500 mg PO daily 3 days olopatadine 0.1% 0 drps ophthalmic (eye) oxybutynin chloride ER 5 mg PO DAILY 30 days quetiapine (Seroquel) 300 mg PO BID sildenafil 100 mg PO ONCE PRN 30 days tadalafil 10 mg PO DAILY 90 days zolpidem 10 mg PO BEDTIME PRN HPI Comments Details: ?Mr Ashley is a very pleasant Albanian speaking male. He is a patient of Dr. Meyers. He is seen seen in the office today for the following urologic conditions. ?- prostate cancer ?- delayed ejaculation - erectile dysfunction Albanian translation provided in office by qualified site medical director PSA rise. Prostate MRI shows small area of high-risk concern. Same area that had previously been seen as 1.2 cm PI-RADS 3. Previously offered therapy however had been declined. 02/28 prostate MRI - 25 g gland, PSA D 0.23 - left mid posteromedial 6 mm PI-RADS 4 lesion Refilled tadalafil Prostate cancer: 2016 Grade Group 1 ? Prostate cancer was diagnosed?[address] - [address] Moss.? Diagnosis was reached by?needle biopsy, for elevated PSA.? The [place] grade is?3+3 = 6 reported by patient.? TNM Classification of Malignant Tumours (TNM)?T1c.? The [place] (NCCN) risk category is?Low Risk (PSA< 10, Gl < 7, T1c).? Initial therapy included?Primary treatment, 01/21 Deferred Therapy (active surveillance) ?05/24 Additional treatment, 5AR.? Recent labs included?a PSA (prostate-specific antigen) 06/23 5.2, 12/22 5.8 (not on anything), 02/21 4.4, 07/24 4.3, 01/23 4.5, 07/25 4.7 5AR, 01/24 PSA 8.4, 08/27 PSA 9.2, 01/27 3.0 on 5AR, 10/28 5.0 27% free, 05/30 3.2 5AR, 10/29 4.6 15% ? Recent imaging included?05/24 - MRI 1.2cm PIRADS 3 on left posterior lateral - previously has been offered treatment however he has decided that he would prefer deferred therapy and understands the risks and benefits for possible delay in therapy ? Associated conditions ? erectile dysfunction ?Yes Delayed ejaculation ? Therapeutic plan: Continue surveillance Q 6 month Overactive bladder Oxybutynin Erectile dysfunction Combination tadalafil and sildenafil PFSH Surgical History Hx of cholecystectomy Social History Alcohol intake: former Patient Tobacco Use Status: Former Tobacco user Cigarettes Per Day: 40 Review of Systems Const Denies chills and Denies fever(s) Card Reports no additional complaints and Denies syncope Resp Denies cough GI Denies abdominal pain and Denies heartburn Reports as per HPI and Denies change in libido Neuro Denies syncope Psych Denies change in libido Endo Denies change in libido Physical Exam Const General: cooperative, healthy appearing, comfortable and no acute distress Orientation/consciousness: patient oriented x3 HEENT Face and sinus: Yes normal facial exam Mouth: moist mucous membranes Neck Neck: Yes normal visual inspection, Yes full ROM and Yes trachea midline Chest Chest palpation & inspection: normal inspection of the chest Resp Effort & Inspection: normal respiratory effort, able to speak in complete sentences and no respiratory distress GI Inspection: Yes normal to inspection Back/Spine/Pelvis Cervical Spine: normal cervical lordosis Thoracic/Lumbar Spine: thoracic and lumbar spine normal to inspection Skin General skin exam: no rashes or lesions noted Neuro General: patient oriented x3, gait normal, tone normal and moves all extremities Extrem General: Yes normal to inspection and Yes capillary refill normal Assessment & Plan Assessment & Plan (1) Overactive bladder: Code(s): N32.81 - Overactive bladder Category: Medical (2) Prostate cancer: Code(s): C61 - Malignant neoplasm of prostate Category: Medical (3) Erectile dysfunction: Code(s): N52.9 - Male erectile dysfunction, unspecified Category: Medical Qualifiers: Erectile dysfunction type: vasculogenic Vasculogenic erectile dysfunction type: due to arterial insufficiency Qualified Code(s): N52.01 - Erectile dysfunction due to arterial insufficiency Plan Six-month follow-up Orders: Orders PSA,Total (Free>4and<10) 6 Months C61 - Malignant neoplasm of prostate Medications: Refilled tadalafil 10 mg PO DAILY 90 days 90 tabs 1RF sexual activity N52.9 - Male erectile dysfunction, unspecified Patient Instructions: Imaging studies, laboratory and physical exam results were discussed and reviewed in detail. No major barriers to patient understanding were identified. An opportunity to ask questions regarding the treatment plan was provided. All questions were answered. The patient expressed understanding and agreement with the above treatment plan. The patient is aware they should contact our office by phone for worsening of their current condition or the appearance of new urologic symptoms. Compliance is encouraged with any medications and followup testing that is ordered. It is a privilege to participate in the urologic care of your patient. If you have any questions or concerns regarding treatment for the above conditions, or other urologic issues, please do not hesitate to contact me. The office telephone contact is [phone]. This note is constructed using voice recognition software. While every effort has been made to ensure accuracy director hris errors may have been included. Yours sincerely, Dr Pasquale Merrill MD, [facility] - Urology Providers of Expert, Compassionate Care for the Genitourinary System Coding Level of Care Code Est Pt Level 4 (29051) Diagnoses Overactive bladder N32.81 Prostate cancer C61 Erectile dysfunction due to arterial insufficiency N52.01 Erectile dysfunction type: vasculogenic Vasculogenic erectile dysfunction type: due to arterial insufficiency
== END 2024-04-04 14:10 | disposition home or self-care (01) ==
PROVIDERS: PCP Family Medicine; Visit Provider Urology
DX: N32.81 Overactive bladder (principal); C61 Malignant neoplasm of prostate; N52.01 Erectile dysfunction due to arterial insufficiency
CPT/HCPCS: 99214

== ENCOUNTER → 2024-04-04 12:56 | Outpatient (BNVA) | payer OTHER, SELFPAY | PROVIDERS: PCP Family Medicine; Visit Provider Urology | DX: N32.81 Overactive bladder (principal); N52.01 Erectile dysfunction due to arterial insufficiency; Z85.46 Personal history of malignant neoplasm of prostate | CPT/HCPCS: 99212 ==

== ENCOUNTER 2024-09-18 10:40 | Outpatient (REF) | payer MEDICAID, SELFPAY ==
--- OUTSIDE RECORDS SUMMARY | 2024-09-18 11:56 | XMS_ITS | Clinical Summary ---
Author Organization [facility] Address [address] [place] [address] Care Team Providers Care Mechanical Design Drafter Name Role Phone Liane Mcclelland PA-C Primary Care Provider [phone] Source Comments PLEASE NOTE, if this patient is a minor, it may be UNLAWFUL to discuss sensitive information that is contained in these records (such as FAMILY PLANNING, MENTAL HEALTH or SUBSTANCE ABUSE) with the minor patient's parent or other person without the patient's specific authorization.[facility] Social History Tobacco Use Types Packs/Day Years Used Date Smoking Tobacco: Never Assessed Social Connections Answer Date Recorded Social Connections and Isolation 0 04/01/2019 Financial Resource Strain Answer Date R ecorded Financial Resource Strain 0 2018 Stress Answer Date Recorded Stress 0 04/01/2019 Physical Activity Answer Date Recorded Physical Activity 0 04/01/2019 Food Insecurity Answer Date Recorded Food 0 04/01/2019 Transportation Needs Answer Date Record ed Transportation 0 04/01/2019 Housing Stability Answer Date Recorded Housing 0 04/01/2019 Safety and Environment Answer Date Anival rded Safety 0 04/01/2019 Utilities Answer Date Recorded Utilities 0 04/01/2019 Employment Answer Date Recorded Employment 0 04/01/2019 Sex and Gender Information Value Date Recorded Sex Assigned at Not on file Legal Sex Male 6:54 AM PDT Gender Identity Not on file Sexual Orientation Not on file Plan of Treatment Not on file Insurance [facility] [place] D[place] [facility] [place] [address] [facility] SAF[employer]Y NET DENTAL [address] Care Teams Mechanical Design Drafter Relationship Specialty Start Date End Date Liane Mcclelland PA-C [address] [place] [address] PCP - General Internal Medicine 09/26/19
--- OUTSIDE RECORDS SUMMARY | 2024-09-18 11:56 | XMS_ITS | Encounter Summary ---
Author Organization [employer] Address [address] [place] [address] Care Team Providers Care Welfare Adviser Name Role Phone Unavailable Primary Care Provider Unavailabl e Encounter Details Date Type Department Care Team (Latest Contact Info) Description 01/10/2019 Abstract [facility] CONVERSIONS Dental, Provider, DDS Social History Tobacco Use Types Packs/Day Years Used Date Smoking Tobacco: Never Assessed Sex and Gender Information Value Date Recorded Sex Assigned at Male 2022 10:24 AM EDT Legal Sex Male 10:24 AM EDT Gender Identity Choose not to disclose 10:24 AM EDT Sexual Orientation Choose not to disclose 2021 10:24 AM EDT documented as of this encounter Plan of Treatment Not on file documented as of this encounter Visit Diagnoses Not on filedocumented in this encounter
--- OUTSIDE RECORDS SUMMARY | 2024-09-18 11:56 | XMS_ITS | Clinical Summary ---
Author Organization [employer] Address [address] [place] [address] [address] [place] [address] Care Team Providers Care Identity Management Consultant Name Role Phone Unavailable Primary Care Provider Unavailabl e Social History Tobacco Use Types Packs/Day Years Used Date Smoking Tobacco: Never Assessed Sex and Gender Information Value Date Recorded Sex Assigned at Male 2022 10:24 AM EDT Legal Sex Male 10:24 AM EDT Gender Identity Choose not to disclose 10:24 AM EDT Sexual Orientation Choose not to disclose 2021 10:24 AM EDT Plan of Treatment Health Maintenance Due Date Last Done Comments CT Colonography 1959 Colonoscopy 1959 Colorectal Cancer Screening 1959 Depression Screening 1959 FIT DNA/Cologuard 1959 FIT 1959 FOBT 1959 Lipid Panel 1959 Sigmoidoscopy 1959 Alcohol/Substance Use Screening 1971 Tobacco Screening 1971 DTaP/Tdap/Td Vaccines (1 - Tdap) 1978 Pneumococcal Vaccine: 50+ Years (1 of 1 - PCV) 2009 Zoster Vaccines (2 of 2) 07/17/2020 05/22/2020 COVID-19 Vaccine (3 - 2023-2 5 season) 2024 11/19/2020, 10/22/2020 Influenza Vaccine (#1) 2024 05/17/2019 RSV Patients and Patients Aged 60 years or older (1 - 1-dose 75+ series) 2034 HIB Vaccines Aged Out No longer eligi ble based on patient's age to complete this topic HPV Vaccines Aged Out No longer eligi ble based on patient's age to complete this topic Hepatitis A Vaccines Aged Out No long er eligible based on patient's age to complete this topic Hepatitis B Vaccines Aged Out No long er eligible based on patient's age to complete this topic IPV Vaccines Aged Out No longer eligi ble based on patient's age to complete this topic Meningococcal Vaccine Aged Out No fernando pablito eligible based on patient's age to complete this topic RSV under 20 months Aged Out No longe r eligible based on patient's age to complete this topic Rotavirus Vaccines Aged Out No longer eligible based on patient's age to complete this topic
[2024-09-18 13:12] LABS: PSA,Total (Free>4and<10) 3.98 ng/mL (0.00-4.00)
== END 2024-09-18 10:41 | disposition home or self-care (01) ==
LOC: HO.LAB 10:40
PROVIDERS: Visit Provider Urology
DX: C61 Malignant neoplasm of prostate (principal)
CPT/HCPCS: 36415; 84153

== ENCOUNTER → 2024-09-25 10:24 | Outpatient (BNVA) | payer MEDICAID, SELFPAY | PROVIDERS: PCP Family Medicine; Visit Provider Urology ==

== ENCOUNTER 2024-09-26 13:28 | Outpatient (AMB) | payer MEDICAID, SELFPAY ==
--- NOTE | 2024-09-26 13:29 | MHC.OFFVIS ---
Intake Visit Reasons: Ejeculation Concerns/labs Intake Note: Patient is present for EJECULATION CONCERNS/LABS Urology Medication:SILDENAFIL,FINASTERIDE,TADALAFIL Antibiotic Allergy:PENICILLIN V Blood Thinner:NONE Property Loss Insurance Claim Adjuster Required: No Allergies penicillin V Allergy (Intermediate, Verified 09/26/24 13:30) rash Medication List - Last Reconciled 09/26/24 by Pasquale Merrill MD cholecalciferol (vitamin D3) 25 mcg PO DAILY clonazepam 0.5 mg PO BID disulfiram mg PO emtricitabine-tenofovir alafen 200-25 mg (Descovy) 1 tab PO DAILY finasteride 5 mg PO DAILY 90 days fluoxetine 10 mg PO DAILY fluticasone propionate 50 mcg/actuation 2 sprays intranasal DAILY gabapentin 400 mg PO DAILY ketoconazole 2% 1 appl topical olopatadine 0.1% 0 drps ophthalmic (eye) sildenafil 100 mg PO ONCE PRN 30 days tadalafil 10 mg PO DAILY 90 days zolpidem 10 mg PO BEDTIME PRN HPI Comments Details: ?Mr Ashley is a very pleasant [place] speaking male. He is a patient of Dr. Meyers. He is seen seen in the office today for the following urologic conditions. ?- prostate cancer ?- delayed ejaculation - erectile dysfunction Telemedicine Evaluation 15 min Consultation [employer] Yael Video [place] translation provided in office by qualified medical accounts receivable specialist Main concern areas erections and ejaculation Information on constriction band provided Prostate MRI shows small area of concern - 1.2 cm PI-RADS 3. Previously offered therapy however had been declined. 02/28 prostate MRI - 25 g gland, PSA D 0.23 - left mid posteromedial 6 mm PI-RADS 4 lesion Prostate cancer: 2016 Grade Group 1 ? Prostate cancer was diagnosed?[address] - Dr Moss.? Diagnosis was reached by?needle biopsy, for elevated PSA.? The [place] grade is?3+3 = 6 reported by patient.? TNM Classification of Malignant Tumours (TNM)?T1c.? The [place] (NCCN) risk category is?Low Risk (PSA< 10, Gl < 7, T1c).? Initial therapy included?Primary treatment, 01/21 Deferred Therapy (active surveillance) ?05/24 Additional treatment, 5AR.? Recent labs included?a PSA (prostate-specific antigen) 06/23 5.2, 12/22 5.8 (not on anything), 02/21 4.4, 07/24 4.3, 01/23 4.5, 07/25 4.7 5AR, 01/24 PSA 8.4, 08/27 PSA 9.2, 01/27 3.0 on 5AR, 10/28 5.0 27% free, 05/30 3.2 5AR, 10/29 4.6 15%, 10/02 4.0 ? Recent imaging included?05/24 - MRI 1.2cm PIRADS 3 on left posterior lateral - previously has been offered treatment however he has decided that he would prefer deferred therapy and understands the risks and benefits for possible delay in therapy ? Associated conditions ? erectile dysfunction ?Yes Delayed ejaculation ? Therapeutic plan: Continue surveillance Q 6 month Overactive bladder Oxybutynin Erectile dysfunction Combination tadalafil and sildenafil PFSH Surgical History Hx of cholecystectomy Social History Alcohol intake: former Patient Tobacco Use Status: Former Tobacco user Cigarettes Per Day: 40 Review of Systems Const All systems reviewed & are unremarkable except as noted in HPI and below Reports no additional complaints Resp Reports no additional complaints GI Reports no additional complaints Reports as per HPI Musc Reports no additional complaints Physical Exam Telemedicine evaluation Appropriate responses Regular breathing rate and rhythm HEENT Head: Yes normal to inspection Ears: hearing grossly normal bilaterally Eyes General: appearance normal, both eyes and all related structures Neck Neck: Yes normal visual inspection Chest Chest palpation & inspection: normal inspection of the chest Resp Effort & Inspection: normal respiratory effort and able to speak in complete sentences Telehealth Telehealth Telehealth Platform: [facility] Location of provider rendering services: practice address Location of patient: address on file Patient Identification confirmed using: Name, : Yes Telehealth method: video Patient verbally consented to treatment: Yes Patient verbally consented to billing insurance company: Yes Patient informed of any privacy concerns related to visit: Yes Minutes spent on Phone/Video with Pt.: 15 Assessment & Plan Assessment & Plan (1) Prostate cancer: Code(s): C61 - Malignant neoplasm of prostate Category: Medical (2) Erectile dysfunction: Code(s): N52.9 - Male erectile dysfunction, unspecified Category: Medical Qualifiers: Erectile dysfunction type: vasculogenic Vasculogenic erectile dysfunction type: due to arterial insufficiency Qualified Code(s): N52.01 - Erectile dysfunction due to arterial insufficiency Plan Sent information about penile constriction bands Six-month follow-up PSA office Orders: Orders PSA,Total (Free>4and<10) 6 Months C61 - Malignant neoplasm of prostate Medications: Changed From tadalafil 10 mg PO DAILY 90 days 90 tabs 1RF sexual activity N52.9 - Male erectile dysfunction, unspecified To tadalafil 20 mg PO DAILY 90 days 90 tabs 1RF sexual activity N52.9 - Male erectile dysfunction, unspecified Refilled sildenafil not to exceed one tab daily- administer 60 minutes before intended activity 100 mg PO ONCE 30 days PRN 30 tabs 1RF sexual activity N52.9 - Male erectile dysfunction, unspecified Discontinued oxybutynin chloride ER Discontinued Reason: Patient Completed Course 5 mg PO DAILY 30 days 30 tabs 1RF N32.81 - Overactive bladder Patient Instructions: This note is constructed using voice recognition software. While every effort has been made to ensure accuracy pipeline operator errors may have been included. Imaging studies, laboratory and physical exam results were discussed and reviewed in detail. No major barriers to patient understanding were identified. An opportunity to ask questions regarding the treatment plan was provided. All questions were answered. The patient expressed understanding and agreement with the above treatment plan. The patient is aware they should contact our office by phone for worsening of their current condition or the appearance of new urologic symptoms. Compliance is encouraged with any medications and followup testing that is ordered. It is a privilege to participate in the urologic care of your patient. If you have any questions or concerns regarding treatment for the above conditions, or other urologic issues, please do not hesitate to contact me. The office telephone contact is [phone]. Sincerely, Dr Pasquale Merrill MD, [facility] - Urology Compassionate Specialist Care for the Genitourinary System Coding Level of Care Code Tele Est Pt Level 3 (43985) Complex EM visit Add On G2211 Diagnoses Prostate cancer C61 Erectile dysfunction due to arterial insufficiency N52.01 Erectile dysfunction type: vasculogenic Vasculogenic erectile dysfunction type: due to arterial insufficiency
--- OUTSIDE RECORDS SUMMARY | 2024-09-26 13:48 | XMS_ITS | Encounter Summary ---
Author Organization [employer] Address [address] [facility] [address] [place] [address] Care Team Providers Care Event Mgr Name Role Phone Unavailable Primary Care Provider Unavailabl e Encounter Details Date Type Department Care Team (Latest Contact Info) Description 01/10/2019 Abstract [facility] CONVERSIONS Dental, Provider, DDS Social History [...]
--- OUTSIDE RECORDS SUMMARY | 2024-09-26 13:48 | XMS_ITS | Clinical Summary ---
Author Organization [facility] Address [address] [place] [address] Care Team Providers Care Tankage Supervisor Name Role Phone Liane Mcclelland PA-C Primary Care Provider [phone] Source Comments PLEASE NOTE, if this patient [...] Plan of Treatment Not on file Insurance [facility] [place] [facility] [place] [address] [facility] DENTAL [id number] Care Teams Tankage Supervisor Relationship Specialty Start Date End Date Liane Mcclelland PA-C [address] [place] [address] PCP - General Internal Medicine 09/26/19
--- OUTSIDE RECORDS SUMMARY | 2024-09-26 13:48 | XMS_ITS | Clinical Summary ---
Author Organization [employer] Address [address] [facility] [address] [place] [address] Care Team Providers Care Nurse Practitioner Hospitalist Name Role Phone Unavailable Primary Care Provider [...]
== END 2024-09-26 13:51 | disposition home or self-care (01) ==
LOC: HO.HUSH 13:28
PROVIDERS: PCP Family Medicine; Visit Provider Urology
DX: C61 Malignant neoplasm of prostate (principal); N52.01 Erectile dysfunction due to arterial insufficiency
CPT/HCPCS: 99213

== ENCOUNTER 2025-07-09 09:34 | Outpatient (REF) | payer MEDICAID, SELFPAY ==
--- OUTSIDE RECORDS SUMMARY | 2025-07-09 10:25 | XMS_ITS | Encounter Summary ---
Author Organization [employer] Address [address] [facility] [facility] [address] [place] [address] Care Team Providers Care Lens Assorter Name Role Phone Unavailable Primary Care Provider Unavailabl e Encounter Details Date Type Department Care Team (Latest Contact Info) Description 01/10/2019 Abstract [facility] CONVERSIONS Dental, Provider, DDS Social History Tobacco [...]
--- OUTSIDE RECORDS SUMMARY | 2025-07-09 10:25 | XMS_ITS | Clinical Summary ---
Author Organization [employer] Address [address] [facility] [address] [place] [address] Care Team Providers Care Accountant Supervisor Name Role Phone Unavailable Primary Care Provider [...] 2) 07/17/2020 05/22/2020 COVID-19 Vaccine (3 - 2024-2 6 season) 2025 11/19/2020, 10/22/2020 Influenza Vaccine (#1) 2025 05/17/2019 RSV Patients and Patients Aged 60 [...] patient's age to complete this topic Meningococcal B Vaccine Aged Out No l onger eligible based on patient's age to complete [...]
[2025-07-09 11:23] LABS: PSA,Total (Free>4and<10) 4.49 ng/mL (0.00-4.00)
[2025-07-10 12:13] LABS: Free Prostate Spec Ag 0.9 ng/mL; Percent Free Prostate Spec Ag 20 % (calc) (>25)
== END 2025-07-09 09:35 | disposition home or self-care (01) ==
LOC: HO.LAB 09:34
PROVIDERS: Visit Provider Urology
DX: C61 Malignant neoplasm of prostate (principal)
CPT/HCPCS: 36415; 84153; 84154